=== PATIENT | male | born 1970 | race Caucasian/White ===

== ENCOUNTER 2018-06-13 10:21 | Inpatient (IN) | payer OTHER ==
[2018-06-13 10:58] VITALS: BMI 25.0
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
[2018-06-13] MEDS ORDERED: IBUPROFEN 400 MG TABLET (FP) PO PRN (12:00)
[2018-06-13] MEDS ORDERED: MAGNESIUM HYDROX 2400MG/30ML ORAL SUSPENSION 30 ML CUP PO PRN (12:00)
[2018-06-13] MEDS ORDERED: ACETAMINOPHEN 325 MG TABLET (FP) PO PRN (12:00)
[2018-06-13] MEDS ORDERED: LOPERAMIDE HCL 2 MG CAPSULE PO PRN (12:00)
[2018-06-13] MEDS ORDERED: MAG HYDROX/AL HYDROX/SIMETH 30 ML UNIT-DOSE CUP PO PRN (12:00)
[2018-06-13] MEDS ORDERED: hydrOXYzine PAMOATE 25 MG CAPSULE (FP) PO PRN (12:00)
[2018-06-13] MEDS ORDERED: NICOTINE POLACRILEX 4 MG GUM BUC PRN (12:00)
[2018-06-13] MEDS ORDERED: MAGNESIUM CITRATE 300 ML BOTTLE PO PRN (12:00)
[2018-06-13] MEDS ORDERED: MENTHOL/PHENOL 1 EACH UD MM PRN (12:00)
[2018-06-13] MEDS ORDERED: chlordiazePOXIDE HCL 25 MG CAPSULE PO PRN (12:00)
[2018-06-13] MEDS ORDERED: BUDESONIDE/FORMETEROL FUMARATE 160/4.5 mcg INHALER IH ONE (12:02)
[2018-06-13] MEDS: P-EPHED 60MG/TRIPROLIDI 2.5MG TABLET PO PRN (14:47)
[2018-06-13] MEDS: guaiFENesin/D-METHORPHAN HB 10 ML UNIT-DOSE CUPS PO PRN (14:47)
[2018-06-13] MEDS: NICOTINE 21 MG/24 HOURS TOPICAL PATCH TD SCH (14:48)
[2018-06-13] MEDS: ALBUTEROL SO4 8 GM HFA INHALER IH PRN (14:49)
[2018-06-13] MEDS ORDERED: chlordiazePOXIDE HCL 25 MG CAPSULE PO ONE (15:00)
[2018-06-13] MEDS: chlordiazePOXIDE HCL 25 MG CAPSULE PO SCH ×2 (18:26→22:35)
[2018-06-13] MEDS ORDERED: MELATONIN 5 MG TABLETS PO PRN (22:00)
[2018-06-13] MEDS: THIAMINE HCL 100 MG TABLET (FP) PO SCH (22:35)
[2018-06-14] MEDS: guaiFENesin/D-METHORPHAN HB 10 ML UNIT-DOSE CUPS PO PRN (06:01)
[2018-06-14] MEDS: chlordiazePOXIDE HCL 25 MG CAPSULE PO SCH ×4 (06:01→23:01)
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
[2018-06-14] MEDS: QUEtiapine FUMARATE 200 MG TABLET PO SCH ×3 (10:30→22:37)
--- NOTE | 2018-06-14 10:33 | PN ---
[facility] CIWA - CIWA Score Nausea/Vomitin-Mild Nausea/No Vomiting Muscle Tremors: 3 Anxiety: 3 Agitation: 3 Paroxysmal Sweats: 1-Minimal Palms Moist Orientation: 1-Uncertain about Date Tacttile Disturbances: 0-None Auditory Disturbances: 0-None Visual Disturbances: 0-None Headache: 2-Mild CIWA-Ar Total Score: 14 [facility] Progress Note (SOAP) Subjective: history of asthma coughing provide symbicort bid and z pack tremor sweat anxiety restlessness low energy gi distress Objective: 06/14/18 11:59 Vital Signs Temperature 97.9 F 06/14/18 09:46 Pulse Rate 69 06/14/18 09:46 Respiratory Rate 18 06/14/18 09:46 Blood Pressure 120/72 06/14/18 09:46 O2 Sat by Pulse Oximetry (%) lab pending Assessment: 06/14/18 12:00 withdrawal sx Plan: continue detox
[2018-06-14] MEDS: PRENATAL VITAMINS W/ FOLIC ACID TABLET (FP) PO SCH (10:36)
[2018-06-14] MEDS: NICOTINE 21 MG/24 HOURS TOPICAL PATCH TD SCH (10:37)
[2018-06-14] MEDS: ALBUTEROL SO4 8 GM HFA INHALER IH PRN (10:37)
[2018-06-14] MEDS: P-EPHED 60MG/TRIPROLIDI 2.5MG TABLET PO PRN (10:41)
[2018-06-14] MEDS ORDERED: AZITHROMYCIN 250 MG TABLET PO ONE (10:46)
[2018-06-14] MEDS: BUDESONIDE/FORMETEROL FUMARATE 80/4.5 mcg INHALER IH SCH ×2 (11:30→22:37)
[2018-06-14 13:05] LABS: HEMATOCRIT 38.3 % (35.4-49); HEMOGLOBIN 13.6 GM/dL (11.7-16.9); MCH 34.3 pg (25.7-33.7); MCHC 35.6 g/dl (32.0-35.9); MEAN CELL VOLUME 96.6 fl (80-96); MEAN PLT VOLUME 8.2 fl (7.5-11.1); PLATELET COUNT 388 K/MM3 (134-434); RBC 3.96 M/mm3 (4.00-5.60); RDW 14.1 % (11.9-15.9); WHITE BLOOD COUNT 6.8 K/mm3 (4.0-10.0)
[2018-06-14 13:20] LABS: ALBUMIN 3.2 g/dl (3.4-5.0); ALK PHOS 80 U/L (45-117); ANION GAP 5 MMOL/L (8-16); BILIRUBIN,TOTAL 0.3 mg/dL (0.2-1); BLOOD UREA NITROGEN 14 mg/dL (7-18); CALCIUM 8.5 mg/dL (8.5-10.1); CHLORIDE 107 mmol/L (98-107); CO2 26 mmol/L (21-32); CREATININE 0.7 mg/dL (0.55-1.3); GLUCOSE,RANDOM 84 mg/dL (74-106); POTASSIUM 4.5 mmol/L (3.5-5.1); SGOT/AST 11 U/L (15-37); SGPT/ALT 14 U/L (13-61); SODIUM 139 mmol/L (136-145)
[2018-06-14] MEDS: SODIUM CHLORIDE NASAL SPRAY 44 ML BOTTLE NS SCH ×2 (14:05→22:38)
--- NOTE | 2018-06-14 17:13 | EKG ---
Test Reason : Blood Pressure : / mmHG Vent. Rate : 093 BPM Atrial Rate : 093 BPM P-R Int : 142 ms QRS Dur : 088 ms QT Int : 366 ms P-R-T Axes : 062 030 039 degrees QTc Int : 455 ms NORMAL SINUS RHYTHM NORMAL ECG NO PREVIOUS ECGS AVAILABLE Confirmed by MD LELE, EZEQUIEL ([id number]) on 06/14/2018 5:13:01 PM Referred By: Confirmed By:EZEQUIEL ROYAL MD
[2018-06-14] MEDS: LORATADINE 10 MG TABLET PO SCH (22:37)
[2018-06-14] MEDS: THIAMINE HCL 100 MG TABLET (FP) PO SCH (22:37)
[2018-06-15] MEDS: QUEtiapine FUMARATE 200 MG TABLET PO SCH ×4 (06:18→23:47)
[2018-06-15] MEDS: chlordiazePOXIDE HCL 25 MG CAPSULE PO SCH ×2 (06:18→10:18)
[2018-06-15] MEDS: SODIUM CHLORIDE NASAL SPRAY 44 ML BOTTLE NS SCH ×3 (06:19→22:33)
[2018-06-15] MEDS: BUDESONIDE/FORMETEROL FUMARATE 80/4.5 mcg INHALER IH SCH ×2 (10:18→22:38)
[2018-06-15] MEDS: PRENATAL VITAMINS W/ FOLIC ACID TABLET (FP) PO SCH (10:18)
[2018-06-15] MEDS: AZITHROMYCIN 250 MG TABLET PO SCH (10:18)
[2018-06-15] MEDS: NICOTINE 21 MG/24 HOURS TOPICAL PATCH TD SCH (10:19)
--- NOTE | 2018-06-15 14:34 | PN ---
[facility] CIWA - CIWA Score Nausea/Vomitin-No Nausea/No Vomiting Muscle Tremors: 4-Moderate,w/Arms Extend Anxiety: 0-No Anxiety, at Ease Agitation: 0-Normal Activity Paroxysmal Sweats: No Perspiration Orientation: 2-Disoriented Date<2 days Tacttile Disturbances: 2-Mild Itch/Numbness/Burn Auditory Disturbances: 1-Very Mild Visual Disturbances: 2-Mild Sensitivity Headache: 0-None Present CIWA-Ar Total Score: 11 S Progress Note (SOAP) Subjective: Fatigue, Tremors. Objective: PATIENT A & O X 2 (UNCERTAIN ABOUT CURRENT DAY / DATE). PATIENT OBSERVED AMBULATING ON UNIT. IN NO ACUTE DISTRESS. 06/15/18 14:35 Vital Signs Temperature 98.1 F 06/15/18 14:25 Pulse Rate 120 H 06/15/18 14:25 Respiratory Rate 06/15/18 14:25 Blood Pressure 124/90 06/15/18 14:25 O2 Sat by Pulse Oximetry (%) Laboratory Tests 06/14/18 06/14/18 06/14/18 07:40 07:40 07:40 WBC 6.8 RBC 3.96 L Hgb 13.6 Hct 38.3 MCV 96.6 H MCH 34.3 H MCHC 35.6 RDW 14.1 Plt Count 388 MPV 8.2 Sodium 139 Potassium 4.5 Chloride 107 Carbon Dioxide 26 Anion Gap 5 L BUN 14 Creatinine 0.7 Creat Clearance w eGFR > 60 Random Glucose 84 Calcium 8.5 Total Bilirubin 0.3 AST 11 L ALT 14 Alkaline Phosphatase 80 Total Protein 6.0 L Albumin 3.2 L RPR Titer Nonreactive LABS NOTED. Assessment: 06/15/18 14:35 WITHDRAWAL SYMPTOMS. Plan: CONTINUE DETOX. INCREASE DAILY PO FLUID INTAKE.
[2018-06-15] MEDS: guaiFENesin/D-METHORPHAN HB 10 ML UNIT-DOSE CUPS PO PRN (15:13)
[2018-06-15] MEDS: chlordiazePOXIDE 5 MG CAPSULE PO SCH ×3 (17:23→23:47)
[2018-06-15] MEDS: LORATADINE 10 MG TABLET PO SCH ×2 (22:33→23:46)
[2018-06-15] MEDS: THIAMINE HCL 100 MG TABLET (FP) PO SCH (22:38)
[2018-06-16] MEDS: chlordiazePOXIDE 5 MG CAPSULE PO SCH ×2 (05:45→11:05)
[2018-06-16] MEDS: QUEtiapine FUMARATE 200 MG TABLET PO SCH ×3 (05:45→22:02)
[2018-06-16] MEDS: guaiFENesin/D-METHORPHAN HB 10 ML UNIT-DOSE CUPS PO PRN (05:46)
[2018-06-16] MEDS: SODIUM CHLORIDE NASAL SPRAY 44 ML BOTTLE NS SCH ×3 (06:04→22:03)
[2018-06-16] MEDS: AZITHROMYCIN 250 MG TABLET PO SCH (11:05)
[2018-06-16] MEDS: PRENATAL VITAMINS W/ FOLIC ACID TABLET (FP) PO SCH (11:05)
[2018-06-16] MEDS: NICOTINE 21 MG/24 HOURS TOPICAL PATCH TD SCH (11:06)
[2018-06-16] MEDS: BUDESONIDE/FORMETEROL FUMARATE 80/4.5 mcg INHALER IH SCH ×2 (11:06→22:03)
--- NOTE | 2018-06-16 15:30 | PN ---
[facility] Progress Note (SOAP) Subjective: Fatigue, Tremors. Objective: PATIENT A & O X 3. IN NO ACUTE DISTRESS. 06/16/18 15:31 Vital Signs Temperature 98.6 F 06/16/18 15:26 Pulse Rate 93 H 06/16/18 15:26 Respiratory Rate 18 06/16/18 15:26 Blood Pressure 103/78 06/16/18 15:26 O2 Sat by Pulse Oximetry (%) Laboratory Tests 06/14/18 06/14/18 06/14/18 07:40 07:40 07:40 WBC 6.8 RBC 3.96 L Hgb 13.6 Hct 38.3 MCV 96.6 H MCH 34.3 H MCHC 35.6 RDW 14.1 Plt Count 388 MPV 8.2 Sodium 139 Potassium 4.5 Chloride 107 Carbon Dioxide 26 Anion Gap 5 L BUN 14 Creatinine 0.7 Creat Clearance w eGFR > 60 Random Glucose 84 Calcium 8.5 Total Bilirubin 0.3 AST 11 L ALT 14 Alkaline Phosphatase 80 Total Protein 6.0 L Albumin 3.2 L RPR Titer Nonreactive LABS NOTED. Assessment: 06/16/18 15:32 WITHDRAWAL SYMPTOMS. Plan: CONTINUE DETOX.
[2018-06-16] MEDS: chlordiazePOXIDE HCL 10 MG CAPSULE PO SCH ×2 (17:55→22:02)
[2018-06-16] MEDS: LORATADINE 10 MG TABLET PO SCH (22:02)
[2018-06-16] MEDS: THIAMINE HCL 100 MG TABLET (FP) PO SCH (22:04)
[2018-06-17] MEDS: SODIUM CHLORIDE NASAL SPRAY 44 ML BOTTLE NS SCH (05:32)
[2018-06-17] MEDS: chlordiazePOXIDE HCL 10 MG CAPSULE PO SCH (05:32)
[2018-06-17] MEDS: QUEtiapine FUMARATE 200 MG TABLET PO SCH (05:33)
[2018-06-17 09:30] VITALS: BP 130/67; PULSE 109; TEMP 96.1
--- NOTE | 2018-06-17 09:31 | DS ---
[facility] Detox Discharge Summary Admission Date: 06/13/18 Discharge Date: 06/17/18 - History Present History: Alcohol Dependence - Physical Exam Results Vital Signs: Vital Signs Temperature 96.6 F L 06/17/18 06:40 Pulse Rate 82 06/17/18 06:40 Respiratory Rate 18 06/17/18 06:40 Blood Pressure 116/72 06/17/18 06:40 O2 Sat by Pulse Oximetry (%) - Treatment Hospital Course: Detox Protocol Followed, Detoxed Safely, Responded well, Discharged Condition Good, Rehab Referral Accepted - Medication Discharge Medications: Ambulatory Orders Albuterol Sulfate Inhaler - [Ventolin Hfa Inhaler -] 1 inh PO Q4H PRN 06/13/18 Fluticasone/Vilanterol [Breo Ellipta 200-25 Mcg INH] 1 each IH DAILY 06/13/18 Quetiapine Fumarate [Seroquel -] 300 mg PO HS 06/13/18 - Diagnosis (1) Alcohol dependence with uncomplicated withdrawal Current Visit: Yes Status: Chronic (2) Heroin use Current Visit: Yes Status: Acute (3) Unspecified mood [affective] disorder Current Visit: Yes Status: Acute (4) Alcohol related seizure Current Visit: Yes Status: Chronic (5) COPD (chronic obstructive pulmonary disease) Current Visit: Yes Status: Chronic Qualifiers: COPD type: unspecified COPD Qualified Code(s): J44.9 - Chronic obstructive pulmonary disease, unspecified (6) Nicotine dependence Current Visit: Yes Status: Chronic Qualifiers: Nicotine product type: cigarettes Substance use status: uncomplicated Qualified Code(s): F17.210 - Nicotine dependence, cigarettes, uncomplicated - AMA Did Patient Leave Against Medical Advice: No ([facility])
== END 2018-06-17 09:50 | disposition home or self-care (01) | DRG 897 ==
LOC: YASAS 10:21 → Y6N 13:20
PROC: HZ2ZZZZ Detoxification Services for Substance Abuse Treatment (ICD-10-PCS; principal; 2018-06-13)
DX: F10.230 Alcohol dependence with withdrawal, uncomplicated (principal); F11.10 Opioid abuse, uncomplicated; F17.210 Nicotine dependence, cigarettes, uncomplicated; F39 Unspecified mood [affective] disorder; J44.9 Chronic obstructive pulmonary disease, unspecified; Z86.69 Personal history of other diseases of the nervous system and sense organs; Z90.81 Acquired absence of spleen; Z90.79 Acquired absence of other genital organ(s); Z88.0 Allergy status to penicillin; Z88.8 Allergy status to other drugs, medicaments and biological substances
CPT/HCPCS: 36415; 80053; 85027; 86593; 93005; 93010

== ENCOUNTER 2018-08-06 14:46 | Inpatient (IN) | payer OTHER ==
[2018-08-06 16:50] VITALS: BMI 25.1
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
[2018-08-06] MEDS ORDERED: MAGNESIUM HYDROX 2400MG/30ML ORAL SUSPENSION 30 ML CUP PO PRN (18:46)
[2018-08-06] MEDS ORDERED: MAGNESIUM CITRATE 300 ML BOTTLE PO PRN (18:46)
[2018-08-06] MEDS ORDERED: P-EPHED 60MG/TRIPROLIDI 2.5MG TABLET PO PRN (18:46)
[2018-08-06] MEDS ORDERED: MAG HYDROX/AL HYDROX/SIMETH 30 ML UNIT-DOSE CUP PO PRN (18:46)
[2018-08-06] MEDS ORDERED: guaiFENesin/D-METHORPHAN HB 10 ML UNIT-DOSE CUPS PO PRN (18:46)
[2018-08-06] MEDS ORDERED: MENTHOL/PHENOL 1 EACH UD MM PRN (18:46)
[2018-08-06] MEDS ORDERED: chlordiazePOXIDE HCL 25 MG CAPSULE PO PRN (18:46)
[2018-08-06] MEDS ORDERED: ACETAMINOPHEN 325 MG TABLET (FP) PO PRN (18:46)
[2018-08-06] MEDS ORDERED: IBUPROFEN 400 MG TABLET (FP) PO PRN (18:46)
[2018-08-06] MEDS ORDERED: ALBUTEROL SO4 0.083% IH SOL 2.5 MG/3 ML VIAL.NEB. NEB PRN (18:47)
[2018-08-06] MEDS ORDERED: QUEtiapine FUMARATE 100 MG TABLET (FP) PO ONE (21:00)
[2018-08-06] MEDS ORDERED: MELATONIN 5 MG TABLETS PO PRN (22:00)
[2018-08-06] MEDS ORDERED: THIAMINE HCL 100 MG TABLET (FP) PO SCH (22:00)
[2018-08-06] MEDS: chlordiazePOXIDE HCL 25 MG CAPSULE PO SCH (23:21)
[2018-08-07] MEDS: chlordiazePOXIDE HCL 25 MG CAPSULE PO SCH ×3 (06:16→17:25)
[2018-08-07] MEDS ORDERED: PRENATAL VITAMINS W/ FOLIC ACID TABLET (FP) PO SCH (10:00)
[2018-08-07] MEDS ORDERED: PATIENT'S OWN MEDICATION (NON-FORMULARY) (Fluticasone/Vilanterol [Breo Ellipta 200-25 Mcg IH SCH (10:00)
[2018-08-07] MEDS ORDERED: NICOTINE 7 MG/24 HOURS TOPICAL PATCH TD SCH (10:00)
[2018-08-07 10:48] LABS: HEMATOCRIT 39.1 % (35.4-49); HEMOGLOBIN 13.6 GM/dL (11.7-16.9); MCH 33.5 pg (25.7-33.7); MCHC 34.6 g/dl (32.0-35.9); MEAN CELL VOLUME 96.8 fl (80-96); MEAN PLT VOLUME 8.1 fl (7.5-11.1); PLATELET COUNT 381 K/MM3 (134-434); RBC 4.05 M/mm3 (4.00-5.60); RDW 14.1 % (11.9-15.9); WHITE BLOOD COUNT 5.1 K/mm3 (4.0-10.0)
[2018-08-07 11:02] LABS: ALBUMIN 3.4 g/dl (3.4-5.0); ALK PHOS 86 U/L (45-117); ANION GAP 7 MMOL/L (8-16); BILIRUBIN,TOTAL 0.8 mg/dL (0.2-1); BLOOD UREA NITROGEN 22 mg/dL (7-18); CALCIUM 8.9 mg/dL (8.5-10.1); CHLORIDE 107 mmol/L (98-107); CO2 26 mmol/L (21-32); CREATININE 0.8 mg/dL (0.55-1.3); GLUCOSE,RANDOM 85 mg/dL (74-106); POTASSIUM 4.4 mmol/L (3.5-5.1); SGOT/AST 14 U/L (15-37); SGPT/ALT 14 U/L (13-61); SODIUM 141 mmol/L (136-145); TOT PROT 6.2 g/dl (6.4-8.2)
[2018-08-07] MEDS ORDERED: ALBUTEROL SO4 8 GM HFA INHALER IH PRN (11:07)
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
--- NOTE | 2018-08-07 17:08 | PN ---
S CIWA - CIWA Score Nausea/Vomitin-No Nausea/No Vomiting Muscle Tremors: 2 Anxiety: 3 Agitation: 0-Normal Activity Paroxysmal Sweats: 2 Orientation: 0-Oriented Tacttile Disturbances: 0-None Auditory Disturbances: 0-None Visual Disturbances: 0-None Headache: 0-None Present CIWA-Ar Total Score: 7 [facility] Progress Note (SOAP) Subjective: Anxious, Sweating, Fatigue. Objective: PATIENT A & O X 3. IN NO ACUTE DISTRESS. 08/07/18 17:07 Vital Signs Temperature 96.1 F L 08/07/18 09:25 Pulse Rate 91 H 08/07/18 09:25 Respiratory Rate 18 08/07/18 09:25 Blood Pressure 115/74 08/07/18 09:25 O2 Sat by Pulse Oximetry (%) Laboratory Tests 08/07/18 08/07/18 07:00 07:00 WBC 5.1 RBC 4.05 Hgb 13.6 Hct 39.1 MCV 96.8 H MCH 33.5 MCHC 34.6 RDW 14.1 Plt Count 381 MPV 8.1 Sodium 141 Potassium 4.4 Chloride 107 Carbon Dioxide 26 Anion Gap 7 L BUN 22 H Creatinine 0.8 Creat Clearance w eGFR > 60 Random Glucose 85 Calcium 8.9 Total Bilirubin 0.8 AST 14 L ALT 14 Alkaline Phosphatase 86 Total Protein 6.2 L Albumin 3.4 LABS NOTED. RPR RESULT PENDING. 08/07/18 17:07 Assessment: 08/07/18 17:08 WITHDRAWAL SYMPTOMS. Plan: CONTINUE DETOX. INCREASE DAILY PO FLUID INTAKE.
[2018-08-07 17:48] VITALS: BP 119/82; PULSE 78; TEMP 97.4
[2018-08-07] MEDS ORDERED: QUEtiapine FUMARATE 200 MG TABLET PO SCH (22:00)
[2018-08-07] MEDS ORDERED: chlordiazePOXIDE HCL 25 MG CAPSULE PO SCH (23:00)
[2018-08-08] MEDS ORDERED: chlordiazePOXIDE 5 MG CAPSULE PO SCH (23:00)
[2018-08-09] MEDS ORDERED: chlordiazePOXIDE HCL 10 MG CAPSULE PO SCH (23:00)
== END 2018-08-07 18:20 | disposition left against medical advice (07) | DRG 894 ==
LOC: YASAS 14:46 → Y3N 18:59
PROVIDERS: ADMIT Surgery; ATTEND Surgery
PROC: HZ2ZZZZ Detoxification Services for Substance Abuse Treatment (ICD-10-PCS; principal; 2018-08-06)
DX: F10.230 Alcohol dependence with withdrawal, uncomplicated (principal); F14.10 Cocaine abuse, uncomplicated; F17.210 Nicotine dependence, cigarettes, uncomplicated; F19.24 Other psychoactive substance dependence with psychoactive substance-induced mood disorder; F43.10 Post-traumatic stress disorder, unspecified; G47.00 Insomnia, unspecified; Z86.69 Personal history of other diseases of the nervous system and sense organs
CPT/HCPCS: 36415; 80053; 85027; 86593

== ENCOUNTER 2019-03-15 23:44 | Inpatient (IN) | payer OTHER ==
[2019-03-16 02:12] VITALS: BMI 32.4
--- NOTE | 2019-03-16 03:34 | PN ---
[facility] CIWA - CIWA Score Nausea/Vomitin-Int. Nausea w/Dry Heave Muscle Tremors: 3 Anxiety: 3 Agitation: 1-Slight > Activity Paroxysmal Sweats: 2 Orientation: 0-Oriented Tacttile Disturbances: 1-Very Mild Itch/Numbness Auditory Disturbances: 0-None Visual Disturbances: 0-None Headache: 0-None Present CIWA-Ar Total Score: 14 [facility] Progress Note (SOAP) Subjective: Alcohol dependence in withdrawal Cocaine dependence Nicotine dependence allergic Rhinitis COPD GERD Objective: 03/16/19 03:34 Alert and oriented x 3 Tremors Sweating Anxiety shakes 03/16/19 03:36 Vital Signs Temperature 97.7 F 03/16/19 02:11 Pulse Rate 82 03/16/19 02:11 Respiratory Rate 18 03/16/19 02:11 Blood Pressure 130/91 03/16/19 02:11 O2 Sat by Pulse Oximetry (%) Assessment: 03/16/19 03:36 Alcohol withdrawal symptoms Plan: Admit to detox Librium regimen H and P including medication confirmation to be done in the morning See Admission orders
[2019-03-16] MEDS ORDERED: ACETAMINOPHEN 325 MG TABLET (FP) PO PRN ×2 (03:42)
[2019-03-16] MEDS ORDERED: MENTHOL/PHENOL 1 EACH UD MM PRN (03:42)
[2019-03-16] MEDS ORDERED: MAGNESIUM HYDROX 2400MG/30ML ORAL SUSPENSION 30 ML CUP PO PRN (03:42)
[2019-03-16] MEDS ORDERED: METHOCARBAMOL 500 MG TABLET PO PRN (03:42)
[2019-03-16] MEDS ORDERED: BISMUTH SUBSALICYLATE 524 MG/30 ML UD PO PRN (03:42)
[2019-03-16] MEDS ORDERED: MAGNESIUM CITRATE 300 ML BOTTLE PO PRN (03:42)
[2019-03-16] MEDS ORDERED: chlordiazePOXIDE HCL 10 MG CAPSULE PO PRN (03:42)
[2019-03-16] MEDS ORDERED: MAG HYDROX/AL HYDROX/SIMETH 30 ML UNIT-DOSE CUP PO PRN (03:49)
[2019-03-16] MEDS: chlordiazePOXIDE HCL 25 MG CAPSULE PO SCH ×3 (04:46→21:22)
[2019-03-16 10:21] LABS: MCH 32.2 pg (25.7-33.7); MCHC 34.3 g/dl (32.0-35.9); MEAN CELL VOLUME 93.9 fl (80-96); MEAN PLT VOLUME 9.2 fl (7.5-11.1); PLATELET COUNT 334 K/MM3 (134-434); RBC 3.73 M/mm3 (4.00-5.60); RDW 14.6 % (11.9-15.9); WHITE BLOOD COUNT 9.4 K/mm3 (4.0-10.0)
[2019-03-16] MEDS: PRENATAL VITAMINS W/ FOLIC ACID TABLET (FP) PO SCH (11:00)
[2019-03-16] MEDS: NICOTINE 21 MG/24 HOURS TOPICAL PATCH TD SCH (11:00)
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
[2019-03-16] MEDS ORDERED: PNEUMOCOCCAL 23 VACCINE 0.5 ML VIAL IM ONE (12:00)
[2019-03-16] MEDS ORDERED: PNEUMOC 13-VAL CONJ-DIP CRM/PF 0.5 ML DISP.SYRIN IM ONE (12:00)
[2019-03-16] MEDS: GABAPENTIN 100 MG CAPSULE (FP) PO SCH ×2 (14:32→21:22)
--- NOTE | 2019-03-16 15:28 | PN ---
[facility] Progress Note Note: Psychiatry Attending's note : Attempt made to conduct psychiatric evaluation. As requested. Patient is found sleeping comfortably. No evidence of distress. Examination deferred until AM.
[2019-03-16 16:55] LABS: ALBUMIN 3.5 g/dl (3.4-5.0); BILIRUBIN,TOTAL 0.5 mg/dL (0.2-1); BLOOD UREA NITROGEN 20.2 mg/dL (7-18); CALCIUM 8.8 mg/dL (8.5-10.1); CREATININE 0.8 mg/dL (0.55-1.3); POTASSIUM 4.6 mmol/L (3.5-5.1); TOT PROT 6.6 g/dl (6.4-8.2)
[2019-03-16] MEDS: hydrOXYzine PAMOATE 25 MG CAPSULE (FP) PO PRN (21:22)
[2019-03-16] MEDS: MELATONIN 5 MG TABLETS PO PRN (21:23)
[2019-03-16] MEDS: THIAMINE HCL 100 MG TABLET (FP) PO SCH (21:23)
[2019-03-16] MEDS: BUDESONIDE/FORMETEROL FUMARATE 80/4.5 mcg INHALER IH SCH (22:37)
[2019-03-16] MEDS: FLUTICASONE PROP 0.05% 16 GM NASAL SPRAY NS SCH (22:38)
[2019-03-17] MEDS: chlordiazePOXIDE 5 MG CAPSULE PO SCH ×3 (06:31→22:05)
[2019-03-17] MEDS: GABAPENTIN 100 MG CAPSULE (FP) PO SCH ×3 (07:32→22:03)
[2019-03-17] MEDS: BUDESONIDE/FORMETEROL FUMARATE 80/4.5 mcg INHALER IH SCH ×2 (10:29→22:06)
[2019-03-17] MEDS: FLUTICASONE PROP 0.05% 16 GM NASAL SPRAY NS SCH ×2 (10:30→22:05)
[2019-03-17] MEDS: NICOTINE 21 MG/24 HOURS TOPICAL PATCH TD SCH (10:30)
[2019-03-17] MEDS: PRENATAL VITAMINS W/ FOLIC ACID TABLET (FP) PO SCH (10:31)
[2019-03-17] MEDS: PANTOPRAZOLE 40 MG TABLET (FP) PO SCH (10:31)
[2019-03-17] MEDS: hydrOXYzine PAMOATE 25 MG CAPSULE (FP) PO PRN ×2 (10:32→22:05)
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
--- NOTE | 2019-03-17 12:28 | PN ---
[facility] CIWA - CIWA Score Nausea/Vomitin-No Nausea/No Vomiting Muscle Tremors: 3 Anxiety: 3 Agitation: 3 Paroxysmal Sweats: 3 Orientation: 0-Oriented Tacttile Disturbances: 0-None Auditory Disturbances: 0-None Visual Disturbances: 0-None Headache: 0-None Present CIWA-Ar Total Score: 12 S Progress Note (SOAP) Subjective: diarrhea sweats shakes interrupted sleep body aches Objective: 03/17/19 12:17 Vital Signs Temperature 97.9 F 03/17/19 10:16 Pulse Rate 74 03/17/19 10:16 Respiratory Rate 18 03/17/19 10:16 Blood Pressure 115/59 L 03/17/19 10:16 O2 Sat by Pulse Oximetry (%) Laboratory Tests 03/16/19 03/16/19 03/16/19 08:00 12:46 13:15 WBC 9.4 RBC 3.73 L Hgb 12.0 Hct 35.0 L MCV 93.9 MCH 32.2 MCHC 34.3 RDW 14.6 Plt Count 334 MPV 9.2 Sodium 141 Potassium 4.6 Chloride 108 H Carbon Dioxide 27 Anion Gap 6 L BUN 20.2 H Creatinine 0.8 Est GFR (CKD-EPI)AfAm 122.43 Est GFR (CKD-EPI)NonAf 105.63 Random Glucose 143 H Calcium 8.8 Total Bilirubin 0.5 AST 36 ALT 30 Alkaline Phosphatase 89 Total Protein 6.6 Albumin 3.5 RPR Titer HIV 1&2 Antibody Screen Negative HIV P24 Antigen Negative 03/16/19 13:15 WBC RBC Hgb Hct MCV MCH MCHC RDW Plt Count MPV Sodium Potassium Chloride Carbon Dioxide Anion Gap BUN Creatinine Est GFR (CKD-EPI)AfAm Est GFR (CKD-EPI)NonAf Random Glucose Calcium Total Bilirubin AST ALT Alkaline Phosphatase Total Protein Albumin RPR Titer Nonreactive HIV 1&2 Antibody Screen HIV P24 Antigen labs noted repeat BUN encourage increase water intake aaox3 ambulating no acute distress Assessment: 03/17/19 12:28 withdrawals Plan: continue detox increase fluids repeat BUN
[2019-03-17] MEDS ORDERED: PNEUMOC 13-VAL CONJ-DIP CRM/PF 0.5 ML DISP.SYRIN IM ONE (12:57)
[2019-03-17] MEDS ORDERED: PNEUMOCOCCAL 23 VACCINE 0.5 ML VIAL IM ONE (14:15)
[2019-03-17] MEDS: THIAMINE HCL 100 MG TABLET (FP) PO SCH (22:05)
[2019-03-18] MEDS ORDERED: chlordiazePOXIDE HCL 10 MG CAPSULE PO PRN
[2019-03-18] MEDS: chlordiazePOXIDE HCL 10 MG CAPSULE PO SCH ×3 (06:17→22:09)
[2019-03-18] MEDS: GABAPENTIN 100 MG CAPSULE (FP) PO SCH ×3 (06:17→22:09)
[2019-03-18] MEDS: hydrOXYzine PAMOATE 25 MG CAPSULE (FP) PO PRN ×2 (06:18→22:12)
--- NOTE | 2019-03-18 10:12 | PN ---
[facility] CIWA - CIWA Score Nausea/Vomitin-No Nausea/No Vomiting Muscle Tremors: 3 Anxiety: 2 Agitation: 2 Paroxysmal Sweats: 2 Orientation: 0-Oriented Tacttile Disturbances: 0-None Auditory Disturbances: 0-None Visual Disturbances: 0-None Headache: 0-None Present CIWA-Ar Total Score: 9 S Progress Note (SOAP) Subjective: I have dandruff sweats body aches Objective: 03/18/19 10:11 Vital Signs Temperature 96.1 F L 03/18/19 09:41 Pulse Rate 71 03/18/19 09:41 Respiratory Rate 18 03/18/19 09:41 Blood Pressure 106/65 03/18/19 09:41 O2 Sat by Pulse Oximetry (%) Laboratory Tests 03/16/19 03/16/19 03/16/19 08:00 12:46 13:15 WBC 9.4 RBC 3.73 L Hgb 12.0 Hct 35.0 L MCV 93.9 MCH 32.2 MCHC 34.3 RDW 14.6 Plt Count 334 MPV 9.2 Sodium 141 Potassium 4.6 Chloride 108 H Carbon Dioxide 27 Anion Gap 6 L BUN 20.2 H Creatinine 0.8 Est GFR (CKD-EPI)AfAm 122.43 Est GFR (CKD-EPI)NonAf 105.63 Random Glucose 143 H Calcium 8.8 Total Bilirubin 0.5 AST 36 ALT 30 Alkaline Phosphatase 89 Total Protein 6.6 Albumin 3.5 RPR Titer HIV 1&2 Antibody Screen Negative HIV P24 Antigen Negative 03/16/19 13:15 WBC RBC Hgb Hct MCV MCH MCHC RDW Plt Count MPV Sodium Potassium Chloride Carbon Dioxide Anion Gap BUN Creatinine Est GFR (CKD-EPI)AfAm Est GFR (CKD-EPI)NonAf Random Glucose Calcium Total Bilirubin AST ALT Alkaline Phosphatase Total Protein Albumin RPR Titer Nonreactive HIV 1&2 Antibody Screen HIV P24 Antigen pt refused to have his labs retaken encouraged to hydrate aaox3 ambulating no acute distress Assessment: 03/18/19 10:11 withdrawals Plan: continue detox selenium lotion increase fluids d/c in am
[2019-03-18] MEDS: FLUTICASONE PROP 0.05% 16 GM NASAL SPRAY NS SCH ×2 (10:33→22:10)
[2019-03-18] MEDS: PANTOPRAZOLE 40 MG TABLET (FP) PO SCH (10:33)
[2019-03-18] MEDS: BUDESONIDE/FORMETEROL FUMARATE 80/4.5 mcg INHALER IH SCH ×2 (10:33→22:10)
[2019-03-18] MEDS: PRENATAL VITAMINS W/ FOLIC ACID TABLET (FP) PO SCH (10:33)
[2019-03-18] MEDS: SELENIUM SULFIDE 2.5% LOTION 4 OZ. TP SCH (10:33)
[2019-03-18] MEDS: NICOTINE 21 MG/24 HOURS TOPICAL PATCH TD SCH (10:33)
[2019-03-18] MEDS: THIAMINE HCL 100 MG TABLET (FP) PO SCH (22:09)
[2019-03-19] MEDS ORDERED: chlordiazePOXIDE HCL 10 MG CAPSULE PO ONE (05:00)
[2019-03-19] MEDS: GABAPENTIN 100 MG CAPSULE (FP) PO SCH ×3 (06:23→21:06)
--- NOTE | 2019-03-19 08:49 | DS ---
[facility] Detox Discharge Summary Admission Date: 03/16/19 Discharge Date: 03/19/19 - History Present History: Alcohol Dependence - Physical Exam Results Vital Signs: Vital Signs Temperature 97.7 F 03/18/19 21:05 Pulse Rate 82 03/19/19 00:30 Respiratory Rate 18 03/19/19 03:30 Blood Pressure 122/76 03/18/19 21:05 O2 Sat by Pulse Oximetry (%) Pertinent Admission Physical Exam Findings: pt arrived in withdrawals Laboratory Tests 03/16/19 03/16/19 03/16/19 08:00 12:46 13:15 WBC 9.4 RBC 3.73 L Hgb 12.0 Hct 35.0 L MCV 93.9 MCH 32.2 MCHC 34.3 RDW 14.6 Plt Count 334 MPV 9.2 Sodium 141 Potassium 4.6 Chloride 108 H Carbon Dioxide 27 Anion Gap 6 L BUN 20.2 H Creatinine 0.8 Est GFR (CKD-EPI)AfAm 122.43 Est GFR (CKD-EPI)NonAf 105.63 Random Glucose 143 H Calcium 8.8 Total Bilirubin 0.5 AST 36 ALT 30 Alkaline Phosphatase 89 Total Protein 6.6 Albumin 3.5 RPR Titer HIV 1&2 Antibody Screen Negative HIV P24 Antigen Negative 03/16/19 13:15 WBC RBC Hgb Hct MCV MCH MCHC RDW Plt Count MPV Sodium Potassium Chloride Carbon Dioxide Anion Gap BUN Creatinine Est GFR (CKD-EPI)AfAm Est GFR (CKD-EPI)NonAf Random Glucose Calcium Total Bilirubin AST ALT Alkaline Phosphatase Total Protein Albumin RPR Titer Nonreactive HIV 1&2 Antibody Screen HIV P24 Antigen pt is aaox3 ambulating no acute distress - Treatment Hospital Course: Detox Protocol Followed, Detoxed Safely, Responded well, Discharged Condition Good, Rehab Referral Accepted Patient has Accepted a Rehab Referral to: pt referred to [facility] rehab - Medication Discharge Medications: Ambulatory Orders Budesonide/Formeterol Fumarate [SYMBICORT 80/4.5mcg -] 1 inh PO BID 03/16/19 Divalproex Sodium [Depakote ER] 500 mg PO DAILY 03/16/19 Divalproex Sodium [Divalproex Sodium ER] 1,000 mg PO HS 03/16/19 Fluticasone Prop 0.05% Nasal [Flonase -] 1 - 2 spray NS BID 03/16/19 Folic Acid - 1 mg PO DAILY 03/16/19 Gabapentin [Neurontin -] 300 mg PO Q8H 03/16/19 Rodessa Carbonate [Eskalith -] 600 mg PO HS 03/16/19 Pantoprazole Sodium [Protonix -] 40 mg PO DAILY 03/16/19 Paroxetine HCl [Paxil -] 20 mg PO DAILY 03/16/19 traZODone HCL [Trazodone HCl] 100 mg PO HS PRN 03/16/19 - Diagnosis (1) Alcohol dependence with uncomplicated withdrawal Current Visit: Yes Status: Chronic (2) Alcohol related seizure Current Visit: No Status: Suspected (3) COPD (chronic obstructive pulmonary disease) Current Visit: Yes Status: Chronic Qualifiers: COPD type: unspecified COPD Qualified Code(s): J44.9 - Chronic obstructive pulmonary disease, unspecified (4) History of posttraumatic stress disorder (PTSD) Current Visit: Yes Status: Chronic (5) Nicotine dependence Current Visit: Yes Status: Chronic Qualifiers: Nicotine product type: cigarettes Substance use status: uncomplicated Qualified Code(s): F17.210 - Nicotine dependence, cigarettes, uncomplicated - AMA Did Patient Leave Against Medical Advice: No
[2019-03-19] MEDS: PRENATAL VITAMINS W/ FOLIC ACID TABLET (FP) PO SCH (10:10)
[2019-03-19] MEDS: PANTOPRAZOLE 40 MG TABLET (FP) PO SCH (10:11)
[2019-03-19] MEDS: SELENIUM SULFIDE 2.5% LOTION 4 OZ. TP SCH (10:11)
[2019-03-19] MEDS: BUDESONIDE/FORMETEROL FUMARATE 80/4.5 mcg INHALER IH SCH ×2 (10:12→21:13)
[2019-03-19] MEDS: hydrOXYzine PAMOATE 25 MG CAPSULE (FP) PO PRN ×2 (10:13→21:07)
[2019-03-19] MEDS: NICOTINE 21 MG/24 HOURS TOPICAL PATCH TD SCH (10:14)
[2019-03-19] MEDS: FLUTICASONE PROP 0.05% 16 GM NASAL SPRAY NS SCH ×2 (10:15→21:08)
[2019-03-19] MEDS: THIAMINE HCL 100 MG TABLET (FP) PO SCH (21:06)
[2019-03-19] MEDS: MELATONIN 5 MG TABLETS PO PRN (21:07)
[2019-03-19] MEDS: IBUPROFEN 400 MG TABLET (FP) PO PRN (21:09)
[2019-03-20] MEDS: GABAPENTIN 100 MG CAPSULE (FP) PO SCH ×2 (07:05→15:06)
[2019-03-20] MEDS: PANTOPRAZOLE 40 MG TABLET (FP) PO SCH (10:01)
[2019-03-20] MEDS: PRENATAL VITAMINS W/ FOLIC ACID TABLET (FP) PO SCH (10:01)
[2019-03-20] MEDS: NICOTINE 21 MG/24 HOURS TOPICAL PATCH TD SCH (10:01)
[2019-03-20] MEDS: FLUTICASONE PROP 0.05% 16 GM NASAL SPRAY NS SCH ×2 (10:02→21:24)
[2019-03-20] MEDS: BUDESONIDE/FORMETEROL FUMARATE 80/4.5 mcg INHALER IH SCH ×2 (10:06→21:23)
[2019-03-20] MEDS: IBUPROFEN 400 MG TABLET (FP) PO PRN ×3 (10:07→21:29)
[2019-03-20] MEDS: SELENIUM SULFIDE 2.5% LOTION 4 OZ. TP SCH (10:11)
--- NOTE | 2019-03-20 15:09 | PN ---
[facility] Progress Note Note: Patient is referred for localized redness to the right eye. As per patient, redness started yesterday in the inner canthus and it is spreading. On exam, he is noted with blood shot eye starting from the inner canthus covering an area about 0.5 cm. He reports itchiness, he denies pain, headache or photophobia. Vital Signs Temperature 98.8 F 03/19/19 19:38 Pulse Rate 79 03/20/19 15:21 Respiratory Rate 18 03/20/19 15:21 Blood Pressure 113/93 03/20/19 15:21 O2 Sat by Pulse Oximetry (%) A/P Bloodshot eye- Artificial tears TID as needed Monitoring ongoing
[2019-03-20] MEDS ORDERED: traZODone HCL 100 MG TABLET (FP) PO PRN (16:36)
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
[2019-03-20] MEDS: hydrOXYzine PAMOATE 25 MG CAPSULE (FP) PO PRN (18:26)
[2019-03-20] MEDS: THIAMINE HCL 100 MG TABLET (FP) PO SCH (21:24)
[2019-03-20] MEDS: QUEtiapine FUMARATE 100 MG TABLET (FP) PO SCH (21:24)
[2019-03-20] MEDS: GABAPENTIN 300 MG CAPSULE (FP) PO SCH (21:24)
[2019-03-20] MEDS: DIVALPROEX SODIUM 500 MG TABLET E.C. PO SCH (21:24)
[2019-03-20] MEDS ORDERED: DIVALPROEX SODIUM 500 MG TABLET E.C. PO SCH (22:00)
[2019-03-20] MEDS ORDERED: QUEtiapine FUMARATE 200 MG TABLET PO SCH (22:00)
[2019-03-21] MEDS: GABAPENTIN 300 MG CAPSULE (FP) PO SCH ×3 (06:57→21:07)
[2019-03-21] MEDS: PANTOPRAZOLE 40 MG TABLET (FP) PO SCH (09:32)
[2019-03-21] MEDS: PRENATAL VITAMINS W/ FOLIC ACID TABLET (FP) PO SCH (09:32)
[2019-03-21] MEDS: DIVALPROEX SODIUM 500 MG TABLET E.C. PO SCH ×2 (09:32→21:44)
[2019-03-21] MEDS: FLUTICASONE PROP 0.05% 16 GM NASAL SPRAY NS SCH ×2 (09:32→21:45)
[2019-03-21] MEDS: hydrOXYzine PAMOATE 25 MG CAPSULE (FP) PO PRN ×2 (09:33→21:05)
[2019-03-21] MEDS: NICOTINE 21 MG/24 HOURS TOPICAL PATCH TD SCH (09:33)
[2019-03-21] MEDS: SELENIUM SULFIDE 2.5% LOTION 4 OZ. TP SCH (09:33)
[2019-03-21] MEDS: BUDESONIDE/FORMETEROL FUMARATE 80/4.5 mcg INHALER IH SCH ×2 (11:03→21:46)
[2019-03-21] MEDS: PARoxetine HCL 20 MG TABLET PO SCH (12:35)
[2019-03-21] MEDS: IBUPROFEN 400 MG TABLET (FP) PO PRN (21:05)
[2019-03-21] MEDS: ARTIFICIAL TEARS (POLYVINYL ALCOHOL) OPTH DROPS OD PRN ×2 (21:06→21:44)
[2019-03-21] MEDS: QUEtiapine FUMARATE 100 MG TABLET (FP) PO SCH (21:07)
[2019-03-21] MEDS: THIAMINE HCL 100 MG TABLET (FP) PO SCH (21:45)
[2019-03-22] MEDS: GABAPENTIN 300 MG CAPSULE (FP) PO SCH ×3 (07:39→20:59)
[2019-03-22] MEDS: NICOTINE 21 MG/24 HOURS TOPICAL PATCH TD SCH (10:25)
[2019-03-22] MEDS: FLUTICASONE PROP 0.05% 16 GM NASAL SPRAY NS SCH ×2 (10:25→21:00)
[2019-03-22] MEDS: DIVALPROEX SODIUM 500 MG TABLET E.C. PO SCH (10:25)
[2019-03-22] MEDS: PANTOPRAZOLE 40 MG TABLET (FP) PO SCH (10:26)
[2019-03-22] MEDS: SELENIUM SULFIDE 2.5% LOTION 4 OZ. TP SCH (10:26)
[2019-03-22] MEDS: PARoxetine HCL 20 MG TABLET PO SCH (10:26)
[2019-03-22] MEDS: PRENATAL VITAMINS W/ FOLIC ACID TABLET (FP) PO SCH (10:26)
[2019-03-22] MEDS: BUDESONIDE/FORMETEROL FUMARATE 80/4.5 mcg INHALER IH SCH ×2 (10:26→21:00)
--- NOTE | 2019-03-22 17:12 | PN ---
Psychiatric Progress Note Vital Signs: Vital Signs Period Temp Pulse Resp BP Sys/Prince Pulse Ox Last 24 Hr 16-18 Date of Session: 03/22/19 Chief Complaint:: " I need my trazodone. I still can't sleep at night." HPI: Revisit for assessment of mental status + titration of medications. Case of a 48 y/o male, currently in rehabilitation addressing alcohol use disorder co-morbid with bipolar mood disorder. Clearly improving in spite of complaint of insomnia. ROS: Unremarkable. Patient is ambulatory. Steady gait. Sociable and cooperative. Intact cognition. Current Medications: Active Medications Generic Name Dose Route Start Last Admin Trade Name Freq PRN Reason Stop Dose Admin Acetaminophen 650 mg 03/16/19 03:42 Tylenol - PO Q6H PRN PAIN LEVEL 4 - 6 Acetaminophen 650 mg 03/16/19 03:42 Tylenol - PO Q6H PRN FEVER Al Hydroxide/Mg Hydroxide 30 ml 03/16/19 03:49 Mylanta Oral Suspension - PO Q6H PRN DYSPEPSIA Artificial Tears 1 drop 03/20/19 14:59 03/21/19 21:44 Artificial Tears OD 1 applic Q8H PRN Administration DRY EYES Bismuth Subsalicylate 524 mg 03/16/19 03:42 Pepto-Bismol - PO Q1H PRN DIARRHEA Budesonide/Formoterol Fumarate 1 puff 03/16/19 22:00 03/22/19 10:26 Symbicort 80/4.5mcg - IH Not Given BID JANEE Divalproex Sodium 750 mg 03/22/19 22:00 Depakote - PO BID JANEE Fluticasone Propionate 2 spray 03/16/19 22:00 03/22/19 10:25 Flonase - NS Not Given BID JANEE Gabapentin 300 mg 03/20/19 22:00 03/22/19 14:03 Neurontin - PO 300 mg TID JANEE Administration Ibuprofen 400 mg 03/16/19 03:49 03/21/19 21:05 Motrin - PO 400 mg Q6H PRN Administration PAIN LEVEL 1 - 3 Magnesium Citrate 300 ml 03/16/19 03:42 Citroma - PO Q48H PRN CONSTIPATION Magnesium Hydroxide 30 ml 03/16/19 03:42 Milk Of Magnesia - PO PRN PRN CONSTIPATION Melatonin 5 mg 03/16/19 03:42 10/11/19 21:07 Melatonin PO 5 mg HS PRN Administration INSOMNIA Nicotine 21 mg 03/16/19 10:00 03/22/19 10:25 Nicoderm Patch - TD Not Given DAILY JANEE Pantoprazole Sodium 40 mg 03/17/19 10:00 03/22/19 10:26 Protonix - PO Not Given DAILY JANEE Paroxetine HCl 20 mg 03/21/19 10:00 03/22/19 10:26 Paxil - PO Not Given DAILY JANEE Multivit/Folic Acid/Iron 1 tab 03/16/19 10:00 03/22/19 10:26 Vitamins (Sjr) - PO Not Given DAILY JANEE Quetiapine Fumarate 200 mg 03/22/19 22:00 Seroquel - PO HS JANEE Selenium Sulfide 1 applic 03/18/19 10:15 03/22/19 10:26 Selsun 2.5% Lotion - TP 03/25/19 10:10 Not Given DAILY JANEE Thiamine HCl 100 mg 03/16/19 22:00 03/21/19 21:45 Vitamin B1 - PO 100 mg HS JANEE Administration Trazodone HCl 100 mg 03/22/19 22:00 Desyrel - PO HS JANEE Medication(s) Change(s): Medications addressed. Seroquel is raised to 200 mg po hs + depakote 750 mg po bid. Trazodone 100 mg po hs is added to the regimen at patient's specific request (concordant with medication discharge list from [facility] on 03/11/19). Side effects/benefits of each formulation are re-discussed with the patient and informed consent secured. Current Side Effect: No Lab tests ordered: Yes (valproic acid level is requested) Lab tests reviewed: Yes Provider note:: Chart reviewed. Medications revisited. Patient seen in individual session. Mr Hernandez is found in a more pleasant mood in this encounter. Jovial, friendly and cooperative. Noted as an active participant in the elaboration of his treatment plan. Patient confirms sleep latency and difficulty to stay asleep. Experiences fatigue in the morning. He is agreement with the modifications brought to his medication regimen as depicted in Medications changes section (see above). Markedly improved mental status (refer to MSE report for details). Benign hospital course. Valproic acid level : pending. Psychiatry-Liaison Psychiatry will follow. Total face to face time:: 35 Mental Status Exam - Mental Status Exam Alert and Oriented to: Time, Place, Person Cognitive Function: Good Patient Appearance: Well Groomed Mood: Hopeful, Euthymic Affect: Appropriate, Normal Range Patient Behavior: Appropriate, Cooperative (friendly) Speech Pattern: Clear, Appropriate Voice Loudness: Normal Thought Process: Intact, Goal Oriented Thought Disorder: Not Present Hallucinations: Denies Suicidal Ideation: Denies Homicidal Ideation: Denies Insight/Judgement: Fair Sleep: Poorly, Difficulty falling asleep Muscle strength/Tone: Normal Gait/Station: Normal Psychiatric Treatment Plan - Problem List (1) Insomnia Current Visit: Yes Comment: . (2) Alcohol use disorder Current Visit: Yes Comment: . (3) Cocaine use disorder Current Visit: Yes Comment: . (4) Nicotine dependence Current Visit: Yes Qualifiers: Nicotine product type: cigarettes Substance use status: uncomplicated Qualified Code(s): F17.210 - Nicotine dependence, cigarettes, uncomplicated Comment: . (5) Bipolar disorder Current Visit: Yes Comment: . (6) History of posttraumatic stress disorder (PTSD) Current Visit: Yes Comment: .
[2019-03-22] MEDS: traZODone HCL 100 MG TABLET (FP) PO SCH (20:59)
[2019-03-22] MEDS: DIVALPROEX SODIUM 250 MG TABLET E.C. PO SCH (20:59)
[2019-03-22] MEDS: QUEtiapine FUMARATE 200 MG TABLET PO SCH (20:59)
[2019-03-22] MEDS: THIAMINE HCL 100 MG TABLET (FP) PO SCH (21:00)
[2019-03-22] MEDS: ARTIFICIAL TEARS (POLYVINYL ALCOHOL) OPTH DROPS OD PRN (21:01)
[2019-03-22] MEDS ORDERED: FAMOTIDINE 20 MG TABLET PO SCH (22:00)
[2019-03-23] MEDS: GABAPENTIN 300 MG CAPSULE (FP) PO SCH ×3 (07:01→21:03)
[2019-03-23] MEDS: PRENATAL VITAMINS W/ FOLIC ACID TABLET (FP) PO SCH (10:36)
[2019-03-23] MEDS: PARoxetine HCL 20 MG TABLET PO SCH (10:36)
[2019-03-23] MEDS: DIVALPROEX SODIUM 250 MG TABLET E.C. PO SCH ×2 (10:36→21:03)
[2019-03-23] MEDS: NICOTINE 21 MG/24 HOURS TOPICAL PATCH TD SCH (10:36)
[2019-03-23] MEDS: FLUTICASONE PROP 0.05% 16 GM NASAL SPRAY NS SCH ×2 (10:36→21:04)
[2019-03-23] MEDS: BUDESONIDE/FORMETEROL FUMARATE 80/4.5 mcg INHALER IH SCH ×2 (10:37→21:04)
[2019-03-23] MEDS: SELENIUM SULFIDE 2.5% LOTION 4 OZ. TP SCH (10:37)
[2019-03-23] MEDS: PANTOPRAZOLE 40 MG TABLET (FP) PO SCH (10:37)
[2019-03-23] MEDS: MELATONIN 5 MG TABLETS PO PRN (21:03)
[2019-03-23] MEDS: THIAMINE HCL 100 MG TABLET (FP) PO SCH (21:03)
[2019-03-23] MEDS: QUEtiapine FUMARATE 200 MG TABLET PO SCH (21:03)
[2019-03-23] MEDS: traZODone HCL 100 MG TABLET (FP) PO SCH (21:03)
[2019-03-23] MEDS: ARTIFICIAL TEARS (POLYVINYL ALCOHOL) OPTH DROPS OD PRN (21:05)
[2019-03-24] MEDS: GABAPENTIN 300 MG CAPSULE (FP) PO SCH ×3 (07:04→21:08)
[2019-03-24] MEDS: DIVALPROEX SODIUM 250 MG TABLET E.C. PO SCH ×2 (10:02→21:08)
[2019-03-24] MEDS: PRENATAL VITAMINS W/ FOLIC ACID TABLET (FP) PO SCH (10:03)
[2019-03-24] MEDS: PANTOPRAZOLE 40 MG TABLET (FP) PO SCH (10:03)
[2019-03-24] MEDS: FLUTICASONE PROP 0.05% 16 GM NASAL SPRAY NS SCH ×2 (10:04→21:09)
[2019-03-24] MEDS: ARTIFICIAL TEARS (POLYVINYL ALCOHOL) OPTH DROPS OD PRN (10:04)
[2019-03-24] MEDS: PARoxetine HCL 20 MG TABLET PO SCH (10:04)
[2019-03-24] MEDS: SELENIUM SULFIDE 2.5% LOTION 4 OZ. TP SCH (10:05)
[2019-03-24] MEDS: NICOTINE 21 MG/24 HOURS TOPICAL PATCH TD SCH (10:06)
[2019-03-24] MEDS: BUDESONIDE/FORMETEROL FUMARATE 80/4.5 mcg INHALER IH SCH ×2 (10:07→21:10)
[2019-03-24] MEDS: IBUPROFEN 400 MG TABLET (FP) PO PRN (21:07)
[2019-03-24] MEDS: traZODone HCL 100 MG TABLET (FP) PO SCH (21:08)
[2019-03-24] MEDS: MELATONIN 5 MG TABLETS PO PRN (21:09)
[2019-03-24] MEDS: QUEtiapine FUMARATE 200 MG TABLET PO SCH (21:09)
[2019-03-24] MEDS: THIAMINE HCL 100 MG TABLET (FP) PO SCH (21:09)
[2019-03-25] MEDS: GABAPENTIN 300 MG CAPSULE (FP) PO SCH ×3 (06:59→21:05)
[2019-03-25] MEDS: BUDESONIDE/FORMETEROL FUMARATE 80/4.5 mcg INHALER IH SCH ×2 (09:42→21:06)
[2019-03-25] MEDS: IBUPROFEN 400 MG TABLET (FP) PO PRN (09:42)
[2019-03-25] MEDS: PANTOPRAZOLE 40 MG TABLET (FP) PO SCH (09:43)
[2019-03-25] MEDS: FLUTICASONE PROP 0.05% 16 GM NASAL SPRAY NS SCH ×2 (09:43→21:07)
[2019-03-25] MEDS: DIVALPROEX SODIUM 250 MG TABLET E.C. PO SCH ×2 (09:43→21:05)
[2019-03-25] MEDS: PRENATAL VITAMINS W/ FOLIC ACID TABLET (FP) PO SCH (09:43)
[2019-03-25] MEDS: ARTIFICIAL TEARS (POLYVINYL ALCOHOL) OPTH DROPS OD PRN (09:44)
[2019-03-25] MEDS: NICOTINE 21 MG/24 HOURS TOPICAL PATCH TD SCH (09:45)
[2019-03-25] MEDS: SELENIUM SULFIDE 2.5% LOTION 4 OZ. TP SCH (09:45)
[2019-03-25] MEDS: PARoxetine HCL 20 MG TABLET PO SCH (11:46)
[2019-03-25] MEDS: THIAMINE HCL 100 MG TABLET (FP) PO SCH (21:05)
[2019-03-25] MEDS: traZODone HCL 100 MG TABLET (FP) PO SCH (21:05)
[2019-03-25] MEDS: QUEtiapine FUMARATE 200 MG TABLET PO SCH (21:05)
[2019-03-26] MEDS: GABAPENTIN 300 MG CAPSULE (FP) PO SCH ×3 (06:28→21:03)
[2019-03-26] MEDS: IBUPROFEN 400 MG TABLET (FP) PO PRN ×2 (06:29→21:06)
[2019-03-26] MEDS: DIVALPROEX SODIUM 250 MG TABLET E.C. PO SCH ×2 (12:09→21:02)
[2019-03-26] MEDS: NICOTINE 21 MG/24 HOURS TOPICAL PATCH TD SCH (12:10)
[2019-03-26] MEDS: PRENATAL VITAMINS W/ FOLIC ACID TABLET (FP) PO SCH (12:10)
[2019-03-26] MEDS: PARoxetine HCL 20 MG TABLET PO SCH (12:10)
[2019-03-26] MEDS: PANTOPRAZOLE 40 MG TABLET (FP) PO SCH (12:10)
[2019-03-26] MEDS: BUDESONIDE/FORMETEROL FUMARATE 80/4.5 mcg INHALER IH SCH ×2 (12:10→21:10)
[2019-03-26] MEDS: FLUTICASONE PROP 0.05% 16 GM NASAL SPRAY NS SCH ×2 (12:10→21:33)
[2019-03-26] MEDS: THIAMINE HCL 100 MG TABLET (FP) PO SCH (21:02)
[2019-03-26] MEDS: QUEtiapine FUMARATE 200 MG TABLET PO SCH (21:03)
[2019-03-26] MEDS: traZODone HCL 100 MG TABLET (FP) PO SCH (21:03)
[2019-03-26] MEDS: ARTIFICIAL TEARS (POLYVINYL ALCOHOL) OPTH DROPS OD PRN (21:10)
[2019-03-27] MEDS: GABAPENTIN 300 MG CAPSULE (FP) PO SCH ×3 (07:10→21:08)
[2019-03-27] MEDS: IBUPROFEN 400 MG TABLET (FP) PO PRN (07:10)
[2019-03-27] MEDS: PARoxetine HCL 20 MG TABLET PO SCH (12:03)
[2019-03-27] MEDS: DIVALPROEX SODIUM 250 MG TABLET E.C. PO SCH ×2 (12:03→21:07)
[2019-03-27] MEDS: FLUTICASONE PROP 0.05% 16 GM NASAL SPRAY NS SCH ×2 (12:03→21:09)
[2019-03-27] MEDS: PRENATAL VITAMINS W/ FOLIC ACID TABLET (FP) PO SCH (12:04)
[2019-03-27] MEDS: NICOTINE 21 MG/24 HOURS TOPICAL PATCH TD SCH (12:04)
[2019-03-27] MEDS: PANTOPRAZOLE 40 MG TABLET (FP) PO SCH (12:04)
[2019-03-27] MEDS: BUDESONIDE/FORMETEROL FUMARATE 80/4.5 mcg INHALER IH SCH ×2 (12:04→21:09)
[2019-03-27] MEDS: QUEtiapine FUMARATE 200 MG TABLET PO SCH (21:08)
[2019-03-27] MEDS: traZODone HCL 100 MG TABLET (FP) PO SCH (21:08)
[2019-03-27] MEDS: THIAMINE HCL 100 MG TABLET (FP) PO SCH (21:08)
[2019-03-28] MEDS: GABAPENTIN 300 MG CAPSULE (FP) PO SCH ×3 (06:11→21:00)
[2019-03-28] MEDS: IBUPROFEN 400 MG TABLET (FP) PO PRN ×3 (06:12→21:01)
[2019-03-28] MEDS: PRENATAL VITAMINS W/ FOLIC ACID TABLET (FP) PO SCH (09:34)
[2019-03-28] MEDS: DIVALPROEX SODIUM 250 MG TABLET E.C. PO SCH ×2 (09:34→20:59)
[2019-03-28] MEDS: FLUTICASONE PROP 0.05% 16 GM NASAL SPRAY NS SCH ×2 (09:34→21:00)
[2019-03-28] MEDS: PANTOPRAZOLE 40 MG TABLET (FP) PO SCH (09:34)
[2019-03-28] MEDS: NICOTINE 21 MG/24 HOURS TOPICAL PATCH TD SCH (09:34)
[2019-03-28] MEDS: PARoxetine HCL 20 MG TABLET PO SCH (09:34)
[2019-03-28] MEDS: BUDESONIDE/FORMETEROL FUMARATE 80/4.5 mcg INHALER IH SCH ×2 (09:35→21:00)
[2019-03-28] MEDS: QUEtiapine FUMARATE 200 MG TABLET PO SCH (21:00)
[2019-03-28] MEDS: THIAMINE HCL 100 MG TABLET (FP) PO SCH (21:00)
[2019-03-28] MEDS: traZODone HCL 100 MG TABLET (FP) PO SCH (21:00)
[2019-03-29] MEDS: GABAPENTIN 300 MG CAPSULE (FP) PO SCH ×3 (07:34→21:13)
[2019-03-29] MEDS: DIVALPROEX SODIUM 250 MG TABLET E.C. PO SCH ×2 (10:04→21:13)
[2019-03-29] MEDS: FLUTICASONE PROP 0.05% 16 GM NASAL SPRAY NS SCH ×2 (10:04→21:16)
[2019-03-29] MEDS: PRENATAL VITAMINS W/ FOLIC ACID TABLET (FP) PO SCH (10:04)
[2019-03-29] MEDS: BUDESONIDE/FORMETEROL FUMARATE 80/4.5 mcg INHALER IH SCH ×2 (10:04→21:16)
[2019-03-29] MEDS: PANTOPRAZOLE 40 MG TABLET (FP) PO SCH (10:04)
[2019-03-29] MEDS: NICOTINE 21 MG/24 HOURS TOPICAL PATCH TD SCH (10:05)
[2019-03-29] MEDS: PARoxetine HCL 20 MG TABLET PO SCH (14:07)
[2019-03-29] MEDS: IBUPROFEN 400 MG TABLET (FP) PO PRN (14:08)
[2019-03-29] MEDS: MELATONIN 5 MG TABLETS PO PRN (21:13)
[2019-03-29] MEDS: THIAMINE HCL 100 MG TABLET (FP) PO SCH (21:13)
[2019-03-29] MEDS: traZODone HCL 100 MG TABLET (FP) PO SCH (21:15)
[2019-03-29] MEDS: QUEtiapine FUMARATE 200 MG TABLET PO SCH (21:15)
[2019-03-30] MEDS: GABAPENTIN 300 MG CAPSULE (FP) PO SCH ×3 (06:40→21:24)
[2019-03-30] MEDS: BUDESONIDE/FORMETEROL FUMARATE 80/4.5 mcg INHALER IH SCH ×2 (09:55→21:26)
[2019-03-30] MEDS: PRENATAL VITAMINS W/ FOLIC ACID TABLET (FP) PO SCH (09:55)
[2019-03-30] MEDS: IBUPROFEN 400 MG TABLET (FP) PO PRN ×3 (09:56→21:25)
[2019-03-30] MEDS: FLUTICASONE PROP 0.05% 16 GM NASAL SPRAY NS SCH ×2 (09:56→21:24)
[2019-03-30] MEDS: PANTOPRAZOLE 40 MG TABLET (FP) PO SCH (09:56)
[2019-03-30] MEDS: NICOTINE 21 MG/24 HOURS TOPICAL PATCH TD SCH (09:56)
[2019-03-30] MEDS: PARoxetine HCL 20 MG TABLET PO SCH (09:56)
[2019-03-30] MEDS: DIVALPROEX SODIUM 250 MG TABLET E.C. PO SCH ×2 (09:56→21:23)
[2019-03-30] MEDS: traZODone HCL 100 MG TABLET (FP) PO SCH (21:24)
[2019-03-30] MEDS: QUEtiapine FUMARATE 200 MG TABLET PO SCH (21:25)
[2019-03-30] MEDS: THIAMINE HCL 100 MG TABLET (FP) PO SCH (21:26)
[2019-03-31] MEDS: GABAPENTIN 300 MG CAPSULE (FP) PO SCH ×3 (08:32→21:11)
[2019-03-31] MEDS: DIVALPROEX SODIUM 250 MG TABLET E.C. PO SCH ×2 (10:06→21:11)
[2019-03-31] MEDS: PARoxetine HCL 20 MG TABLET PO SCH (10:06)
[2019-03-31] MEDS: PANTOPRAZOLE 40 MG TABLET (FP) PO SCH (10:06)
[2019-03-31] MEDS: PRENATAL VITAMINS W/ FOLIC ACID TABLET (FP) PO SCH (10:06)
[2019-03-31] MEDS: FLUTICASONE PROP 0.05% 16 GM NASAL SPRAY NS SCH ×2 (10:07→21:11)
[2019-03-31] MEDS: NICOTINE 21 MG/24 HOURS TOPICAL PATCH TD SCH (10:07)
[2019-03-31] MEDS: BUDESONIDE/FORMETEROL FUMARATE 80/4.5 mcg INHALER IH SCH ×2 (10:08→21:12)
[2019-03-31] MEDS: IBUPROFEN 400 MG TABLET (FP) PO PRN ×2 (14:37→21:13)
[2019-03-31] MEDS: QUEtiapine FUMARATE 200 MG TABLET PO SCH (21:11)
[2019-03-31] MEDS: traZODone HCL 100 MG TABLET (FP) PO SCH (21:11)
[2019-03-31] MEDS: MELATONIN 5 MG TABLETS PO PRN (21:12)
[2019-03-31] MEDS: THIAMINE HCL 100 MG TABLET (FP) PO SCH (21:12)
[2019-04-01] MEDS: GABAPENTIN 300 MG CAPSULE (FP) PO SCH ×3 (06:49→21:08)
--- NOTE | 2019-04-01 10:08 | DS ---
[facility] Rehab Discharge Summary - [facility] Rehab Discharge Summary Admission Date: 03/16/19 Discharge Date: 04/02/19 - History Present History: Alcohol dependence Additional Comments: Pt is a 48 y/o male with a hx of alcohol use disorder admitted to rehab and scheduled for discharge on 04/02/19. Pt has met with his counselor, Ms Kelly Marshall and has been referred to aftercare at [facility] in [place], [place]. Pt reports he has no PCP but has been connected to [facility] to follow up with primary care and mental health after discharge. Pertinent Past History: COPD Alcohol related Seizure PTSD Chronic back pain(on Gabapentin per pt's claim) Bipolar Disorder - Discharge Physical Exam Vital Signs: Vital Signs Temperature 97.5 F L 04/01/19 06:58 Pulse Rate 85 04/01/19 06:58 Respiratory Rate 18 04/01/19 06:58 Blood Pressure 131/92 04/01/19 06:58 O2 Sat by Pulse Oximetry (%) Alert o x 3 nad oob ambulates with steady gait cardiac:s1 s2,rrr lungs:cta,tab., no wheeze,no rhonchi abdomen:soft,+bs,nt,nd extremities/skin:no edema,tattoo of "clock logo" on left lower ext. skin intact. Pertinent Admission Physical Exam Findings: Laboratory Tests 03/16/19 03/16/19 03/16/19 08:00 12:46 13:15 WBC 9.4 RBC 3.73 L Hgb 12.0 Hct 35.0 L MCV 93.9 MCH 32.2 MCHC 34.3 RDW 14.6 Plt Count 334 MPV 9.2 Sodium 141 Potassium 4.6 Chloride 108 H Carbon Dioxide 27 Anion Gap 6 L BUN 20.2 H Creatinine 0.8 Est GFR (CKD-EPI)AfAm 122.43 Est GFR (CKD-EPI)NonAf 105.63 POC Glucometer Random Glucose 143 H Calcium 8.8 Total Bilirubin 0.5 AST 36 ALT 30 Alkaline Phosphatase 89 Total Protein 6.6 Albumin 3.5 RPR Titer HIV 1&2 Antibody Screen Negative HIV P24 Antigen Negative 03/16/19 03/27/19 03/28/19 13:15 07:11 06:10 WBC RBC Hgb Hct MCV MCH MCHC RDW Plt Count MPV Sodium Potassium Chloride Carbon Dioxide Anion Gap BUN Creatinine Est GFR (CKD-EPI)AfAm Est GFR (CKD-EPI)NonAf POC Glucometer 83 92 Random Glucose Calcium Total Bilirubin AST ALT Alkaline Phosphatase Total Protein Albumin RPR Titer Nonreactive HIV 1&2 Antibody Screen HIV P24 Antigen Unremarkable - Treatment Discharge Condition: Discharge condition good Hospital Course: Rehabilitated safely and responded well CD aftercare accepted - Medication Discharge Medications: Ambulatory Orders Divalproex Sodium [Depakote ER] 500 mg PO DAILY 03/16/19 Divalproex Sodium [Divalproex Sodium ER] 1,000 mg PO HS 03/16/19 Folic Acid - 1 mg PO DAILY 03/16/19 [place] Carbonate [Eskalith -] 600 mg PO HS 03/16/19 traZODone HCL [Trazodone HCl] 100 mg PO HS PRN 03/16/19 Budesonide/Formeterol Fumarate [SYMBICORT 80/4.5mcg -] 1 inh PO BID #1 inhaler 04/01/19 Divalproex [Depakote -] 250 mg PO BID #60 tablet.ec 04/01/19 Divalproex [Depakote -] 500 mg PO BID #60 tablet.ec 04/01/19 Fluticasone Prop 0.05% Nasal [Flonase -] 1 spray NS BID #1 spray 04/01/19 Pantoprazole Sodium [Protonix -] 40 mg PO DAILY #30 tablet.ec 04/01/19 Paroxetine HCl [Paxil -] 20 mg PO DAILY #30 tablet 04/01/19 Quetiapine Fumarate [Seroquel -] 200 mg PO HS #30 tablet 04/01/19 traZODone HCL [Desyrel -] 100 mg PO HS #30 tablet 04/01/19 Gabapentin [Neurontin -] 300 mg PO Q8H #90 capsule 04/02/19 - Medication-Assisted Treatment (MAT) Medication-Assisted Treatment (MAT): No - Discharge Instructions Diet, activity, other medical instructions: Diet:regular Activity: oob ad rhianna Other medical instructions:Follow up with CD aftrecare at [facility] on [address] [place] [address] as scheduled. Follow up with primary care at [facility] on [address] [place], [place] within 1-2 weeks after discharge. - Diagnosis (1) Alcohol use disorder Current Visit: Yes Status: Chronic (2) COPD (chronic obstructive pulmonary disease) Current Visit: Yes Status: Chronic Qualifiers: COPD type: unspecified COPD Qualified Code(s): J44.9 - Chronic obstructive pulmonary disease, unspecified (3) Cocaine use disorder Current Visit: Yes Status: Chronic (4) History of posttraumatic stress disorder (PTSD) Current Visit: Yes Status: Chronic (5) Nicotine dependence Current Visit: Yes Status: Chronic Qualifiers: Nicotine product type: cigarettes Substance use status: uncomplicated Qualified Code(s): F17.210 - Nicotine dependence, cigarettes, uncomplicated (6) Alcohol related seizure Current Visit: Yes Status: Suspected (7) Chronic back pain Current Visit: Yes Status: Chronic Qualifiers: Back pain location: back pain in unspecified location - Follow-up Referral Minutes to complete discharge: 30 - AMA Did Patient Leave Against Medical Advice: No Additional Comments: Courtesy Rx for Flonase,Symbicort and Gabapentin for 30 days as requested by receiving CD aftercare site electronically sent to [facility] [address] after discharge. Reminded pt to follow up with primary care for further medical management.
[2019-04-01] MEDS: DIVALPROEX SODIUM 250 MG TABLET E.C. PO SCH ×2 (10:27→21:08)
[2019-04-01] MEDS: BUDESONIDE/FORMETEROL FUMARATE 80/4.5 mcg INHALER IH SCH ×2 (10:28→21:10)
[2019-04-01] MEDS: PARoxetine HCL 20 MG TABLET PO SCH (10:28)
[2019-04-01] MEDS: PANTOPRAZOLE 40 MG TABLET (FP) PO SCH (10:28)
[2019-04-01] MEDS: PRENATAL VITAMINS W/ FOLIC ACID TABLET (FP) PO SCH (10:28)
[2019-04-01] MEDS: NICOTINE 21 MG/24 HOURS TOPICAL PATCH TD SCH (10:29)
[2019-04-01] MEDS: FLUTICASONE PROP 0.05% 16 GM NASAL SPRAY NS SCH ×2 (10:30→21:10)
[2019-04-01] MEDS: IBUPROFEN 400 MG TABLET (FP) PO PRN ×2 (10:30→21:07)
[2019-04-01 11:19] VITALS: PULSE 103
--- NOTE | 2019-04-01 15:18 | PN ---
[facility] Progress Note Note: Patient is scheduled for discharge tomorrow. Scripts for 30 days supply of medications(Depakote 250 mg/bid, depakote 500 mg/bid, Trazadone 100 mg.hs, Seroquel 200 mg/hs, Paxil 20 mg/day) will be electronically transmitted to [facility] at [address] [place] [address]
[2019-04-01] MEDS: QUEtiapine FUMARATE 200 MG TABLET PO SCH (21:08)
[2019-04-01] MEDS: traZODone HCL 100 MG TABLET (FP) PO SCH (21:08)
[2019-04-01] MEDS: THIAMINE HCL 100 MG TABLET (FP) PO SCH (21:09)
[2019-04-01] MEDS: MELATONIN 5 MG TABLETS PO PRN (21:09)
[2019-04-02] MEDS: GABAPENTIN 300 MG CAPSULE (FP) PO SCH (05:57)
[2019-04-02 07:00] VITALS: BP 120/76; TEMP 97.2
[2019-04-02] MEDS: NICOTINE 21 MG/24 HOURS TOPICAL PATCH TD SCH (09:08)
[2019-04-02] MEDS: DIVALPROEX SODIUM 250 MG TABLET E.C. PO SCH (09:08)
[2019-04-02] MEDS: BUDESONIDE/FORMETEROL FUMARATE 80/4.5 mcg INHALER IH SCH (09:08)
[2019-04-02] MEDS: PRENATAL VITAMINS W/ FOLIC ACID TABLET (FP) PO SCH (09:08)
[2019-04-02] MEDS: PANTOPRAZOLE 40 MG TABLET (FP) PO SCH (09:08)
[2019-04-02] MEDS: PARoxetine HCL 20 MG TABLET PO SCH (09:09)
[2019-04-02] MEDS: FLUTICASONE PROP 0.05% 16 GM NASAL SPRAY NS SCH (09:11)
--- NOTE | 2019-04-02 09:31 | PN ---
[facility] Progress Note Note: Pt is discharged today as scheduled. Alert o x 3,nad oob ambulating with steady gait. Vital Signs - 24 hr 04/01/19 04/02/19 04/02/19 11:18 00:30 06:59 Temperature 97.5 F L 97.2 F L Pulse Rate 103 H 103 H Respiratory 18 18 20 Rate Blood Pressure 116/88 120/76 Please see Rehab Discharge Summary
== END 2019-04-02 10:00 | disposition home or self-care (01) | DRG 895 ==
LOC: YASAS 23:44 → Y6N 03-16 03:43 → Y5N 03-19 19:18
PROVIDERS: ADMIT Neuromusculoskeletal Medicine & OMM; ATTEND Neuromusculoskeletal Medicine & OMM
PROC: HZ2ZZZZ Detoxification Services for Substance Abuse Treatment (ICD-10-PCS; 2019-03-16)
PROC: HZ42ZZZ Group Counseling for Substance Abuse Treatment, Cognitive-Behavioral (ICD-10-PCS; principal; 2019-03-19)
DX: F10.20 Alcohol dependence, uncomplicated (principal); F14.20 Cocaine dependence, uncomplicated; G40.509 Epileptic seizures related to external causes, not intractable, without status epilepticus; F17.210 Nicotine dependence, cigarettes, uncomplicated; F31.9 Bipolar disorder, unspecified; F43.10 Post-traumatic stress disorder, unspecified; K21.9 Gastro-esophageal reflux disease without esophagitis; J44.9 Chronic obstructive pulmonary disease, unspecified; G47.00 Insomnia, unspecified; M54.89 Other dorsalgia; G89.29 Other chronic pain; Z87.820 Personal history of traumatic brain injury; Z87.828 Personal history of other (healed) physical injury and trauma; Z91.19 Patient's noncompliance with other medical treatment and regimen; Z88.0 Allergy status to penicillin; Z88.8 Allergy status to other drugs, medicaments and biological substances
CPT/HCPCS: 36415; 71045-TC-FY; 80053; 80164; 80178; 80307; 82962; 85025; 85027; 86593; 87389; 99284-25

== ENCOUNTER 2019-07-20 12:35 | Inpatient (IN) | payer OTHER ==
[2019-07-20 14:23] VITALS: BMI 25.4
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
[2019-07-20] MEDS ORDERED: MAGNESIUM CITRATE 300 ML BOTTLE PO PRN (15:57)
[2019-07-20] MEDS ORDERED: chlordiazePOXIDE HCL 25 MG CAPSULE PO PRN (15:57)
[2019-07-20] MEDS ORDERED: IBUPROFEN 400 MG TABLET (FP) PO PRN (15:57)
[2019-07-20] MEDS ORDERED: METHOCARBAMOL 500 MG TABLET PO PRN (15:57)
[2019-07-20] MEDS ORDERED: MAG HYDROX/AL HYDROX/SIMETH 30 ML UNIT-DOSE CUP PO PRN (15:57)
[2019-07-20] MEDS ORDERED: hydrOXYzine PAMOATE 25 MG CAPSULE (FP) PO PRN (15:57)
[2019-07-20] MEDS ORDERED: MELATONIN 5 MG TABLETS PO PRN (15:57)
[2019-07-20] MEDS ORDERED: MENTHOL/PHENOL 1 EACH UD MM PRN (15:57)
[2019-07-20] MEDS ORDERED: BISMUTH SUBSALICYLATE 524 MG/30 ML UD PO PRN (15:57)
[2019-07-20] MEDS ORDERED: MAGNESIUM HYDROX 2400MG/30ML ORAL SUSPENSION 30 ML CUP PO PRN (15:57)
[2019-07-20] MEDS ORDERED: ACETAMINOPHEN 325 MG TABLET (FP) PO PRN ×2 (15:57)
[2019-07-20] MEDS ORDERED: ALBUTEROL SO4 HFA INHALER IH PRN (15:59)
[2019-07-20] MEDS: PANTOPRAZOLE 40 MG TABLET PO SCH (16:43)
[2019-07-20] MEDS: chlordiazePOXIDE HCL 25 MG CAPSULE PO SCH ×2 (16:43→22:06)
[2019-07-20] MEDS: GABAPENTIN 400 MG CAPSULE PO SCH ×2 (16:43→22:06)
[2019-07-20] MEDS: NICOTINE 21 MG/24 HOURS TOPICAL PATCH TD SCH (16:47)
[2019-07-20] MEDS: THIAMINE HCL 100 MG TABLET (FP) PO SCH (22:06)
[2019-07-20] MEDS: BUDESONIDE/FORMETEROL FUMARATE 80/4.5 mcg INHALER IH SCH (22:06)
[2019-07-21] MEDS: chlordiazePOXIDE HCL 25 MG CAPSULE PO SCH ×4 (07:50→21:59)
[2019-07-21] MEDS: GABAPENTIN 400 MG CAPSULE PO SCH ×3 (07:51→21:53)
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
[2019-07-21] MEDS: NICOTINE 21 MG/24 HOURS TOPICAL PATCH TD SCH (10:18)
[2019-07-21] MEDS: BUDESONIDE/FORMETEROL FUMARATE 80/4.5 mcg INHALER IH SCH ×2 (10:19→21:56)
[2019-07-21] MEDS: PANTOPRAZOLE 40 MG TABLET PO SCH (10:19)
[2019-07-21] MEDS: PRENATAL VITAMINS W/ FOLIC ACID TABLET (FP) PO SCH (10:19)
[2019-07-21] MEDS ORDERED: ONDANSETRON *ODT* 4 MG TABLET SL PRN (10:22)
--- NOTE | 2019-07-21 10:24 | PN ---
[facility] CIWA - CIWA Score Nausea/Vomitin-No Nausea/No Vomiting Muscle Tremors: 3 Anxiety: 3 Agitation: 3 Paroxysmal Sweats: 2 Orientation: 0-Oriented Tacttile Disturbances: 0-None Auditory Disturbances: 0-None Visual Disturbances: 0-None Headache: 0-None Present CIWA-Ar Total Score: 11 BHS Progress Note (SOAP) Subjective: sweats shakes diarrhea nausea interrupted sleep Objective: 07/21/19 10:23 Vital Signs Temperature 97.3 F L 07/21/19 07:01 Pulse Rate 77 07/21/19 07:01 Respiratory Rate 18 07/21/19 07:01 Blood Pressure 137/85 07/21/19 07:01 O2 Sat by Pulse Oximetry (%) labs pending aaox3 ambulating no acute distress Assessment: 07/21/19 10:24 withdrawals Plan: continue detox increase fluids pepto prn zofran sl prn
[2019-07-21 10:33] LABS: HEMATOCRIT 40.5 % (35.4-49); HEMOGLOBIN 13.9 GM/dL (11.7-16.9); MCH 32.7 pg (25.7-33.7); MCHC 34.3 g/dl (32.0-35.9); MEAN CELL VOLUME 95.1 fl (80-96); MEAN PLT VOLUME 8.4 fl (7.5-11.1); PLATELET COUNT 402 K/MM3 (134-434); RBC 4.26 M/mm3 (4.00-5.60); RDW 14.9 % (11.9-15.9); WHITE BLOOD COUNT 6.5 K/mm3 (4.0-10.0)
[2019-07-21 10:39] LABS: ALBUMIN 3.6 g/dl (3.4-5.0); BILIRUBIN,TOTAL 0.4 mg/dL (0.2-1); BLOOD UREA NITROGEN 16.4 mg/dL (7-18); CALCIUM 9.1 mg/dL (8.5-10.1); CREATININE 0.7 mg/dL (0.55-1.3); POTASSIUM 3.9 mmol/L (3.5-5.1); TOT PROT 6.5 g/dl (6.4-8.2)
[2019-07-21] MEDS: THIAMINE HCL 100 MG TABLET (FP) PO SCH (21:53)
[2019-07-21] MEDS: QUEtiapine FUMARATE 300 MG TABLET PO SCH (21:54)
[2019-07-22] MEDS: chlordiazePOXIDE HCL 25 MG CAPSULE PO SCH ×4 (06:06→22:07)
[2019-07-22] MEDS: GABAPENTIN 400 MG CAPSULE PO SCH ×3 (06:06→22:07)
[2019-07-22] MEDS: NICOTINE 21 MG/24 HOURS TOPICAL PATCH TD SCH (11:20)
[2019-07-22] MEDS: PANTOPRAZOLE 40 MG TABLET PO SCH (11:20)
[2019-07-22] MEDS: BUDESONIDE/FORMETEROL FUMARATE 80/4.5 mcg INHALER IH SCH ×2 (11:20→22:07)
[2019-07-22] MEDS: PRENATAL VITAMINS W/ FOLIC ACID TABLET (FP) PO SCH (11:20)
--- NOTE | 2019-07-22 15:23 | PN ---
S CIWA - CIWA Score Nausea/Vomitin-Mild Nausea/No Vomiting Muscle Tremors: 2 Anxiety: 2 Agitation: 2 Paroxysmal Sweats: No Perspiration Orientation: 0-Oriented Tacttile Disturbances: 1-Very Mild Itch/Numbness Auditory Disturbances: 0-None Visual Disturbances: 0-None Headache: 1-Very Mild CIWA-Ar Total Score: 9 S Progress Note (SOAP) Subjective: alert,irritable,anxious,interrupted sleep,tremor Objective: 07/22/19 15:22 Vital Signs Temperature 97.3 F L 07/22/19 13:45 Pulse Rate 79 07/22/19 13:45 Respiratory Rate 17 07/22/19 13:45 Blood Pressure 121/81 07/22/19 13:45 O2 Sat by Pulse Oximetry (%) 07/22/19 15:22 Laboratory Last Values WBC 6.5 K/mm3 (4.0-10.0) 07/21/19 07:45 RBC 4.26 M/mm3 (4.00-5.60) 07/21/19 07:45 Hgb 13.9 GM/dL (11.7-16.9) 07/21/19 07:45 Hct 40.5 % (35.4-49) D 07/21/19 07:45 MCV 95.1 fl (80-96) 07/21/19 07:45 MCH 32.7 pg (25.7-33.7) 07/21/19 07:45 MCHC 34.3 g/dl (32.0-35.9) 07/21/19 07:45 RDW 14.9 % (11.9-15.9) 07/21/19 07:45 Plt Count 402 K/MM3 (134-434) D 07/21/19 07:45 MPV 8.4 fl (7.5-11.1) 07/21/19 07:45 Sodium 140 mmol/L (136-145) 07/21/19 07:45 Potassium 3.9 mmol/L (3.5-5.1) 07/21/19 07:45 Chloride 107 mmol/L (98-107) 07/21/19 07:45 Carbon Dioxide 25 mmol/L (21-32) 07/21/19 07:45 Anion Gap 8 MMOL/L (8-16) 07/21/19 07:45 BUN 16.4 mg/dL (7-18) 07/21/19 07:45 Creatinine 0.7 mg/dL (0.55-1.3) 07/21/19 07:45 Est GFR (CKD-EPI)AfAm 128.43 07/21/19 07:45 Est GFR (CKD-EPI)NonAf 110.81 07/21/19 07:45 Random Glucose 179 mg/dL (74-106) H 07/21/19 07:45 Calcium 9.1 mg/dL (8.5-10.1) 07/21/19 07:45 Total Bilirubin 0.4 mg/dL (0.2-1) 07/21/19 07:45 AST 21 U/L (15-37) 07/21/19 07:45 ALT 19 U/L (13-61) 07/21/19 07:45 Alkaline Phosphatase 107 U/L (45-117) 07/21/19 07:45 Total Protein 6.5 g/dl (6.4-8.2) 07/21/19 07:45 Albumin 3.6 g/dl (3.4-5.0) 07/21/19 07:45 RPR Titer Nonreactive (NONREACTIVE) 07/21/19 07:45 Assessment: 07/22/19 15:22 withdrawal symptom Plan: continue detox librium regimen,fasting glucose in am
[2019-07-22] MEDS: THIAMINE HCL 100 MG TABLET (FP) PO SCH (22:06)
[2019-07-22] MEDS: QUEtiapine FUMARATE 300 MG TABLET PO SCH (22:07)
[2019-07-23] MEDS ORDERED: chlordiazePOXIDE HCL 10 MG CAPSULE PO PRN
[2019-07-23] MEDS: chlordiazePOXIDE HCL 10 MG CAPSULE PO SCH ×4 (06:27→23:33)
[2019-07-23] MEDS: GABAPENTIN 400 MG CAPSULE PO SCH ×3 (06:27→23:32)
--- NOTE | 2019-07-23 10:33 | PN ---
[facility] CIWA - CIWA Score Nausea/Vomitin-No Nausea/No Vomiting Muscle Tremors: 2 Anxiety: 0-No Anxiety, at Ease Agitation: 0-Normal Activity Paroxysmal Sweats: No Perspiration Orientation: 0-Oriented Tacttile Disturbances: 0-None Auditory Disturbances: 0-None Visual Disturbances: 0-None Headache: 0-None Present CIWA-Ar Total Score: 2 BHS Progress Note (SOAP) Subjective: pt sleeping this morning, no complaints O: Vital Signs - 24 hr 07/22/19 07/22/19 07/22/19 13:45 16:55 21:02 Temperature 97.3 F L 97.7 F 97.5 F L Pulse Rate 79 94 H 112 H Respiratory 17 18 18 Rate Blood Pressure 121/81 130/91 141/90 07/23/19 07/23/19 07/23/19 00:27 07:29 09:59 Temperature 97.3 F L 97.2 F L Pulse Rate 101 H 119 H Respiratory 20 20 20 Rate Blood Pressure 110/76 146/96 NH high a/p: continue alcohol detox- pt has no complaints NH- high 119, EKG last year NSR, will monitor
[2019-07-23] MEDS: BUDESONIDE/FORMETEROL FUMARATE 80/4.5 mcg INHALER IH SCH ×2 (11:27→23:32)
[2019-07-23] MEDS: PANTOPRAZOLE 40 MG TABLET PO SCH (11:27)
[2019-07-23] MEDS: NICOTINE 21 MG/24 HOURS TOPICAL PATCH TD SCH (11:27)
[2019-07-23] MEDS: PRENATAL VITAMINS W/ FOLIC ACID TABLET (FP) PO SCH (11:27)
[2019-07-23] MEDS ORDERED: cloNIDine HCL 0.1 MG TABLET PO PRN (14:01)
--- NOTE | 2019-07-23 15:09 | PN ---
[facility] Progress Note Note: Pt complaining of chest pain. Pt with no known major cardiac RF: no h/o CAD, DM , no high cholesterol, no h/o HTN. Pt states mid-sternal chest pain started about an hour ago, with no radiation of pain. Pt has h/o GERD. PE: lungs clear heart RRR, tachy, chest pain- over lower sternum Vital Signs - 24 hr 07/22/19 07/22/19 07/23/19 16:55 21:02 00:27 Temperature 97.7 F 97.5 F L Pulse Rate 94 H 112 H Respiratory 18 18 20 Rate Blood Pressure 130/91 141/90 07/23/19 07/23/19 07:29 09:59 Temperature 97.3 F L 97.2 F L Pulse Rate 101 H 119 H Respiratory 20 20 Rate Blood Pressure 110/76 146/96 pulse ox 98. EKG- non-specific ST-t wave abnormality, tachy at 110 a/p: chest pain- will try mylanta- if pain not improved will send to ER for r/o OR eval. 30 mins after Mylanta- pt still with pain mid chest- will send to [facility] ER for evaluation. D/w Dr. Brownlee in ER- will send for r/o OR
[2019-07-23] MEDS: QUEtiapine FUMARATE 300 MG TABLET PO SCH (23:32)
[2019-07-23] MEDS: THIAMINE HCL 100 MG TABLET (FP) PO SCH (23:33)
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
[2019-07-24] MEDS ORDERED: QUEtiapine FUMARATE 50 MG TABLET PO ONE (03:29)
--- NOTE | 2019-07-24 03:29 | PN ---
S Progress Note Note: pt returned from ER and missed PM meds. next due 6 am . One-time order Ishanl
[2019-07-24] MEDS: chlordiazePOXIDE HCL 10 MG CAPSULE PO SCH ×2 (04:08→17:31)
[2019-07-24] MEDS: GABAPENTIN 400 MG CAPSULE PO SCH ×3 (05:24→22:06)
--- NOTE | 2019-07-24 12:03 | PN ---
S CIWA - CIWA Score Nausea/Vomitin-No Nausea/No Vomiting Muscle Tremors: 1-None Visible, but [place] Anxiety: 2 Agitation: 2 Paroxysmal Sweats: 1-Minimal Palms Moist Orientation: 0-Oriented Tacttile Disturbances: 0-None Auditory Disturbances: 0-None Visual Disturbances: 0-None Headache: 1-Very Mild CIWA-Ar Total Score: 7 [facility] Progress Note (SOAP) Subjective: pt was sent to Er for eval of chest pain- eval neg for CA and PE. Pt feels fine today- no chest pain. Anticipate discharge tomorrow. O: Vital Signs - 24 hr 07/23/19 07/24/19 07/24/19 13:28 04:00 10:03 Temperature 98.8 F 97.2 F L 98.1 F Pulse Rate 118 H 98 H 120 H Respiratory 18 18 18 Rate Blood Pressure 149/89 141/90 129/98 Laboratory Tests 07/21/19 07/21/19 07/21/19 07:45 07:45 07:45 WBC 6.5 RBC 4.26 Hgb 13.9 Hct 40.5 D MCV 95.1 MCH 32.7 MCHC 34.3 RDW 14.9 Plt Count 402 D MPV 8.4 Sodium 140 Potassium 3.9 Chloride 107 Carbon Dioxide 25 Anion Gap 8 BUN 16.4 Creatinine 0.7 Est GFR (CKD-EPI)AfAm 128.43 Est GFR (CKD-EPI)NonAf 110.81 Random Glucose 179 H Fasting Glucose Calcium 9.1 Total Bilirubin 0.4 AST 21 ALT 19 Alkaline Phosphatase 107 Total Protein 6.5 Albumin 3.6 RPR Titer Nonreactive 07/23/19 07:25 WBC RBC Hgb Hct MCV MCH MCHC RDW Plt Count MPV Sodium Potassium Chloride Carbon Dioxide Anion Gap BUN Creatinine Est GFR (CKD-EPI)AfAm Est GFR (CKD-EPI)NonAf Random Glucose Fasting Glucose 110 H Calcium Total Bilirubin AST ALT Alkaline Phosphatase Total Protein Albumin RPR Titer a/p AUD- continue detox anticipate discharge tomorrow- to talk to counselor re discharge plan no chest pain today
[2019-07-24] MEDS: NICOTINE 21 MG/24 HOURS TOPICAL PATCH TD SCH (13:30)
[2019-07-24] MEDS: PANTOPRAZOLE 40 MG TABLET PO SCH (13:30)
[2019-07-24] MEDS: BUDESONIDE/FORMETEROL FUMARATE 80/4.5 mcg INHALER IH SCH ×2 (13:30→22:06)
[2019-07-24] MEDS: PRENATAL VITAMINS W/ FOLIC ACID TABLET (FP) PO SCH (13:30)
[2019-07-24] MEDS: QUEtiapine FUMARATE 300 MG TABLET PO SCH (22:06)
[2019-07-24] MEDS: THIAMINE HCL 100 MG TABLET (FP) PO SCH (22:06)
[2019-07-25] MEDS ORDERED: chlordiazePOXIDE HCL 10 MG CAPSULE PO ONE (05:00)
[2019-07-25] MEDS: GABAPENTIN 400 MG CAPSULE PO SCH (05:50)
[2019-07-25 09:04] VITALS: BP 131/89; PULSE 104; TEMP 97.3
--- NOTE | 2019-07-26 10:32 | EKG ---
Test Reason : Blood Pressure : / mmHG Vent. Rate : 111 BPM Atrial Rate : 111 BPM P-R Int : 150 ms QRS Dur : 086 ms QT Int : 322 ms P-R-T Axes : 034 007 086 degrees QTc Int : 437 ms SINUS TACHYCARDIA NONSPECIFIC ST AND T WAVE ABNORMALITY ABNORMAL ECG WHEN COMPARED WITH ECG OF 13-JUN-2018 14:15, NONSPECIFIC T WAVE ABNORMALITY NOW EVIDENT IN LATERAL LEADS Confirmed by Godwin Rayo ([id number]) on 07/26/2019 10:32:25 AM Referred By: Confirmed By:Godwin Rayo
== END 2019-07-25 07:15 | disposition home or self-care (01) | DRG 897 ==
LOC: YASAS 12:35 → Y6N 15:41
PROVIDERS: ADMIT Allergy & Immunology; ATTEND Allergy & Immunology
PROC: HZ2ZZZZ Detoxification Services for Substance Abuse Treatment (ICD-10-PCS; principal; 2019-07-20)
DX: F10.230 Alcohol dependence with withdrawal, uncomplicated (principal); F14.20 Cocaine dependence, uncomplicated; F19.282 Other psychoactive substance dependence with psychoactive substance-induced sleep disorder; F17.210 Nicotine dependence, cigarettes, uncomplicated; F31.9 Bipolar disorder, unspecified; F43.10 Post-traumatic stress disorder, unspecified; J44.9 Chronic obstructive pulmonary disease, unspecified; K21.9 Gastro-esophageal reflux disease without esophagitis; R56.9 Unspecified convulsions; M54.89 Other dorsalgia; G89.29 Other chronic pain; R07.9 Chest pain, unspecified; Z87.828 Personal history of other (healed) physical injury and trauma; Z88.0 Allergy status to penicillin; Z88.8 Allergy status to other drugs, medicaments and biological substances
CPT/HCPCS: 36415; 80053; 82947; 85027; 86593; 93005; 93010; J0735; Q0162

== ENCOUNTER 2019-07-23 16:32 | Emergency (ER) | payer OTHER ==
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
[2019-07-23] MEDS ORDERED: ACETAMINOPHEN 1000 MG/100 ML VIAL (NON FORMULARY) IVPB ONE (16:57)
[2019-07-23] MEDS ORDERED: FAMOTIDINE 20 MG/50 ML IVPB 20 MG/50 ML MG IVPB ONE ×2 (16:57→17:34)
[2019-07-23] MEDS ORDERED: SODIUM CHLORIDE 0.9% 500 ML INFUS.BAG IV ONE ×2 (16:57→20:51)
[2019-07-23] MEDS ORDERED: ASPIRIN 81 MG CHEWABLE TABLETS PO ONE (17:05)
--- NOTE | 2019-07-23 17:05 | PDOC ---
Heart Score/ECG Review - ECG Impressions Comment:: 07/23/19 19:04 Sinus tachycardia, HR 113, no DAVID/STD/TWI ED Treatment Course - LABORATORY CBC & Chemistry Diagram: 07/23/19 17:20 07/23/19 17:20 Medical Decision Making - Medical Decision Making 07/23/19 17:03 Patient seen as pre-attending with Dr. Mathias (PGY-2) 49 y/o male with acute onset of chest pain around 2 pm today. Pain is constant, substernal, squeezing, non radiating with shortness of breath no associated lightheadedness, palpitations Reports cardiac history of arryhtmia w/extended admission at [facility] however denies any CABG, h/o AR Family history significant for maternal of AR @ age 63 As per EMR, patient has h/o TBI, ETOH abuse, cocaine abuse (last use 1 week previous), Will obtain Troponin x2, EKG, CXR, r/o ACS, also consider cocaine induced AR/ cocaine induced CP Last drink 4 days previous -will give Limbrium; monitor for DT's 07/23/19 19:01 Troponin (-) x1 EKG w/o acute ischemic change as documented in EKG section of EMR Patient signed out to Dr. Kam (Attending) for further management Discharge - Discharge Information Problems reviewed: Yes Clinical Impression/Diagnosis: Chest pain Qualifiers: Chest pain type: unspecified Qualified Code(s): R07.9 - Chest pain, unspecified - Follow up/Referral - Patient Discharge Instructions - Post Discharge Activity
[2019-07-23] MEDS ORDERED: chlordiazePOXIDE HCL 25 MG CAPSULE PO ONE (17:10)
[2019-07-23 17:13] VITALS: TEMP 97.9; BMI 26.4
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
[2019-07-23] MEDS ORDERED: ACETAMINOPHEN INJECTION 100 ML IVPB ONE (17:34)
[2019-07-23] MEDS ORDERED: chlordiazePOXIDE HCL 25 MG CAPSULE ONE (17:34)
[2019-07-23] MEDS ORDERED: ASPIRIN 81 MG CHEWABLE TABLETS ONE (17:34)
[2019-07-23] MEDS ORDERED: morphine CARPU-JECT 4 MG/1 ML DISP.SYRIN IVPUSH ONE (17:45)
[2019-07-23] MEDS ORDERED: morphine SULFATE 4 MG/ML VIAL ONE (18:11)
[2019-07-23 18:20] LABS: EOS % 8.8 % (0-4.5); HEMATOCRIT 44.2 % (35.4-49); HEMOGLOBIN 15.1 GM/dL (11.7-16.9); LYMPH % 26.7 % (8-40); MCH 32.3 pg (25.7-33.7); MCHC 34.1 g/dl (32.0-35.9); MEAN CELL VOLUME 94.7 fl (80-96); MEAN PLT VOLUME 8.7 fl (7.5-11.1); MONO % 14.6 % (3.8-10.2); NEUT % 48.9 % (42.8-82.8); RBC 4.66 M/mm3 (4.00-5.60); RDW 14.7 % (11.9-15.9); WHITE BLOOD COUNT 7.5 K/mm3 (4.0-10.0)
[2019-07-23] MEDS ORDERED: ONDANSETRON 4 MG/2 ML VIAL IVPUSH ONE (18:49)
[2019-07-23] MEDS ORDERED: ONDANSETRON 4 MG/2 ML VIAL ONE (18:53)
[2019-07-23 18:56] LABS: PLATELET COUNT 395 K/MM3 (134-434); PLATELET ESTIMATE ADEQUATE
[2019-07-23] MEDS ORDERED: methylPREDNISolone NA SUCC 125 MG/2 ML VIAL IVPB ONE (18:58)
[2019-07-23] MEDS ORDERED: methylPREDNISolone NA SUCC 125 MG/2 ML VIAL ONE (19:00)
[2019-07-23] MEDS ORDERED: ALBUTEROL SO4 2.5/IPRATROPIUM 0.5 INH SOL 3 ML VIAL.NEB. NEB ONE (19:00)
[2019-07-23] MEDS: ALBUTEROL SO4 2.5/IPRATROPIUM 0.5 INH SOL 3 ML VIAL.NEB. NEB SCH ×3 (19:02→19:40)
[2019-07-23 19:09] LABS: ALBUMIN 3.5 g/dl (3.4-5.0); BILIRUBIN,TOTAL 0.2 mg/dL (0.2-1); BLOOD UREA NITROGEN 12.1 mg/dL (7-18); CALCIUM 9.5 mg/dL (8.5-10.1); CREATININE 0.7 mg/dL (0.55-1.3); POTASSIUM 5.1 mmol/L (3.5-5.1)
[2019-07-24 02:02] VITALS: BP 121/76; PULSE 102
--- NOTE | 2019-07-24 17:09 | EKG ---
Test Reason : Blood Pressure : / mmHG Vent. Rate : 113 BPM Atrial Rate : 113 BPM P-R Int : 142 ms QRS Dur : 086 ms QT Int : 332 ms P-R-T Axes : 033 004 048 degrees QTc Int : 455 ms SINUS TACHYCARDIA MODERATE VOLTAGE CRITERIA FOR LVH, MAY BE NORMAL VARIANT BORDERLINE ECG WHEN COMPARED WITH ECG OF 23-JUL-2019 14:53, ST NO LONGER ELEVATED IN INFERIOR LEADS CLINICAL CORRELATION IS RECOMMENDED Confirmed by JOSE DIOR, JONATHAN ([id number]) on 07/24/2019 5:09:06 PM Referred By: Confirmed By:JONATHAN GARCIA MD
== END 2019-07-24 02:28 | disposition short-term general hospital (02) ==
LOC: JER 16:32
PROC: 3E0F7GC Introduction of Other Therapeutic Substance into Respiratory Tract, Via Natural or Artificial Opening (ICD-10-PCS; principal; 2019-07-23)
PROC: 3E033GC Introduction of Other Therapeutic Substance into Peripheral Vein, Percutaneous Approach (ICD-10-PCS; 2019-07-23)
PROC: 3E033GC Introduction of Other Therapeutic Substance into Peripheral Vein, Percutaneous Approach (ICD-10-PCS; 2019-07-23)
PROC: 3E033NZ Introduction of Analgesics, Hypnotics, Sedatives into Peripheral Vein, Percutaneous Approach (ICD-10-PCS; 2019-07-23)
PROC: 3E0333Z Introduction of Anti-inflammatory into Peripheral Vein, Percutaneous Approach (ICD-10-PCS; 2019-07-23)
DX: R07.9 Chest pain, unspecified (principal); J44.9 Chronic obstructive pulmonary disease, unspecified; F31.9 Bipolar disorder, unspecified; K21.9 Gastro-esophageal reflux disease without esophagitis; F10.10 Alcohol abuse, uncomplicated; F14.10 Cocaine abuse, uncomplicated; Z87.820 Personal history of traumatic brain injury; Z88.0 Allergy status to penicillin; Z88.8 Allergy status to other drugs, medicaments and biological substances
CPT/HCPCS: 36415; 71045-TC-FY; 71275-TC; 80053; 84484; 85025; 85379; 93005; 93010; 99285-25; J0131; Q9967

== ENCOUNTER 2019-11-13 09:06 | Inpatient (IN) | payer OTHER ==
[2019-11-13] MEDS ORDERED: METHOCARBAMOL 500 MG TABLET PO PRN (10:51)
[2019-11-13] MEDS ORDERED: NICOTINE POLACRILEX 2 MG GUM BUC PRN (10:51)
[2019-11-13] MEDS ORDERED: IBUPROFEN 400 MG TABLET (FP) PO PRN (10:51)
[2019-11-13] MEDS ORDERED: MAGNESIUM HYDROX 2400MG/30ML ORAL SUSPENSION 30 ML CUP PO PRN (10:51)
[2019-11-13] MEDS ORDERED: MAG HYDROX/AL HYDROX/SIMETH 30 ML UNIT-DOSE CUP PO PRN (10:51)
[2019-11-13] MEDS ORDERED: MENTHOL/PHENOL 1 EACH UD MM PRN (10:51)
[2019-11-13] MEDS ORDERED: ONDANSETRON *ODT* 4 MG TABLET SL ONE (10:51)
[2019-11-13] MEDS ORDERED: ACETAMINOPHEN 325 MG TABLET (FP) PO PRN ×2 (10:51)
[2019-11-13] MEDS ORDERED: BISMUTH SUBSALICYLATE 524 MG/30 ML UD PO PRN (10:51)
[2019-11-13] MEDS ORDERED: MAGNESIUM CITRATE 300 ML BOTTLE PO PRN (10:51)
[2019-11-13] MEDS ORDERED: chlordiazePOXIDE HCL 25 MG CAPSULE PO PRN (10:51)
[2019-11-13] MEDS ORDERED: ALBUTEROL SO4 HFA INHALER IH PRN (10:55)
[2019-11-13 10:59] VITALS: BMI 25.1
[2019-11-13] MEDS: hydrOXYzine PAMOATE 25 MG CAPSULE (FP) PO SCH ×4 (14:10→23:01)
[2019-11-13] MEDS: chlordiazePOXIDE HCL 25 MG CAPSULE PO SCH ×2 (18:09→23:01)
[2019-11-13] MEDS: MELATONIN 5 MG TABLETS PO SCH (23:01)
[2019-11-13] MEDS: QUEtiapine FUMARATE 200 MG TABLET PO SCH (23:01)
[2019-11-13] MEDS: BUDESONIDE/FORMETEROL FUMARATE 80/4.5 mcg INHALER IH SCH (23:01)
[2019-11-13] MEDS: THIAMINE HCL 100 MG TABLET (FP) PO SCH (23:01)
[2019-11-14] MEDS: chlordiazePOXIDE HCL 25 MG CAPSULE PO SCH ×4 (06:02→22:23)
[2019-11-14] MEDS: hydrOXYzine PAMOATE 25 MG CAPSULE (FP) PO SCH ×5 (06:02→22:23)
[2019-11-14] MEDS: PRENATAL VITAMINS W/ FOLIC ACID TABLET (FP) PO SCH (10:15)
[2019-11-14] MEDS: NICOTINE 21 MG/24 HOURS TOPICAL PATCH TD SCH (10:15)
[2019-11-14] MEDS: BUDESONIDE/FORMETEROL FUMARATE 80/4.5 mcg INHALER IH SCH ×2 (10:17→22:23)
[2019-11-14] MEDS: PANTOPRAZOLE 40 MG TABLET PO SCH (10:18)
[2019-11-14 11:00] LABS: ALBUMIN 3.2 g/dl (3.4-5.0); BILIRUBIN,TOTAL 0.6 mg/dL (0.2-1); BLOOD UREA NITROGEN 19.3 mg/dL (7-18); CALCIUM 8.8 mg/dL (8.5-10.1); CREATININE 0.7 mg/dL (0.55-1.3); POTASSIUM 4.3 mmol/L (3.5-5.1)
[2019-11-14 11:04] LABS: HEMATOCRIT 39.7 % (35.4-49); HEMOGLOBIN 13.5 GM/dL (11.7-16.9); MCHC 34.1 g/dl (32.0-35.9); MEAN CELL VOLUME 96.7 fl (80-96); MEAN PLT VOLUME 8.8 fl (7.5-11.1); PLATELET COUNT 478 K/MM3 (134-434); RBC 4.11 M/mm3 (4.00-5.60); RDW 14.2 % (11.9-15.9); WHITE BLOOD COUNT 7.7 K/mm3 (4.0-10.0)
[2019-11-14] MEDS: QUEtiapine FUMARATE 200 MG TABLET PO SCH (22:23)
[2019-11-14] MEDS: THIAMINE HCL 100 MG TABLET (FP) PO SCH (22:23)
[2019-11-14] MEDS: MELATONIN 5 MG TABLETS PO SCH (22:24)
[2019-11-15] MEDS: hydrOXYzine PAMOATE 25 MG CAPSULE (FP) PO SCH ×5 (05:55→22:06)
[2019-11-15] MEDS: chlordiazePOXIDE HCL 25 MG CAPSULE PO SCH ×4 (05:55→22:06)
[2019-11-15] MEDS: BUDESONIDE/FORMETEROL FUMARATE 80/4.5 mcg INHALER IH SCH ×2 (10:13→22:09)
[2019-11-15] MEDS: NICOTINE 21 MG/24 HOURS TOPICAL PATCH TD SCH (10:13)
[2019-11-15] MEDS: PRENATAL VITAMINS W/ FOLIC ACID TABLET (FP) PO SCH (10:13)
[2019-11-15] MEDS: PANTOPRAZOLE 40 MG TABLET PO SCH (10:14)
[2019-11-15 16:24] LABS: URINE APPEARANCE CLEAR; URINE BILIRUBIN NEGATIVE (NEGATIVE); URINE COLOR YELLOW; URINE GLUCOSE (UA) NEGATIVE (NEGATIVE); URINE KETONE NEGATIVE (NEGATIVE); URINE LEUK ESTERASE NEGATIVE (NEGATIVE); URINE NITRITE NEGATIVE (NEGATIVE); URINE PROTEIN NEGATIVE (NEGATIVE); URINE UROBILINOGEN 0.2 mg/dL (0.2-1.0)
[2019-11-15] MEDS ORDERED: QUEtiapine FUMARATE 100 MG TABLET (FP) ONE (20:05)
[2019-11-15] MEDS: QUEtiapine FUMARATE 300 MG TABLET PO SCH (22:05)
[2019-11-15] MEDS: MELATONIN 5 MG TABLETS PO SCH (22:06)
[2019-11-15] MEDS: GABAPENTIN 300 MG CAPSULE PO SCH (22:06)
[2019-11-15] MEDS: THIAMINE HCL 100 MG TABLET (FP) PO SCH (22:06)
[2019-11-16] MEDS ORDERED: chlordiazePOXIDE HCL 10 MG CAPSULE PO PRN
[2019-11-16] MEDS: chlordiazePOXIDE HCL 10 MG CAPSULE PO SCH ×4 (05:23→22:45)
[2019-11-16] MEDS: GABAPENTIN 300 MG CAPSULE PO SCH ×3 (05:23→22:22)
[2019-11-16] MEDS: hydrOXYzine PAMOATE 25 MG CAPSULE (FP) PO SCH ×5 (05:23→22:22)
[2019-11-16] MEDS: PANTOPRAZOLE 40 MG TABLET PO SCH (10:22)
[2019-11-16] MEDS: PRENATAL VITAMINS W/ FOLIC ACID TABLET (FP) PO SCH (10:22)
[2019-11-16] MEDS: NICOTINE 21 MG/24 HOURS TOPICAL PATCH TD SCH (10:22)
[2019-11-16] MEDS: BUDESONIDE/FORMETEROL FUMARATE 80/4.5 mcg INHALER IH SCH ×2 (10:22→22:21)
[2019-11-16] MEDS ORDERED: QUEtiapine FUMARATE 100 MG TABLET (FP) ONE (19:43)
[2019-11-16] MEDS: QUEtiapine FUMARATE 300 MG TABLET PO SCH (22:21)
[2019-11-16] MEDS: MELATONIN 5 MG TABLETS PO SCH (22:22)
[2019-11-16] MEDS: THIAMINE HCL 100 MG TABLET (FP) PO SCH (22:22)
[2019-11-17] MEDS: GABAPENTIN 300 MG CAPSULE PO SCH ×3 (06:31→22:17)
[2019-11-17] MEDS: hydrOXYzine PAMOATE 25 MG CAPSULE (FP) PO SCH ×5 (06:31→22:17)
[2019-11-17] MEDS: chlordiazePOXIDE HCL 10 MG CAPSULE PO SCH ×2 (06:31→17:42)
[2019-11-17] MEDS: BUDESONIDE/FORMETEROL FUMARATE 80/4.5 mcg INHALER IH SCH ×2 (09:26→22:18)
[2019-11-17] MEDS: NICOTINE 21 MG/24 HOURS TOPICAL PATCH TD SCH (09:26)
[2019-11-17] MEDS: PRENATAL VITAMINS W/ FOLIC ACID TABLET (FP) PO SCH (09:27)
[2019-11-17] MEDS: PANTOPRAZOLE 40 MG TABLET PO SCH (09:27)
[2019-11-17] MEDS ORDERED: QUEtiapine FUMARATE 100 MG TABLET (FP) ONE (21:25)
[2019-11-17] MEDS: THIAMINE HCL 100 MG TABLET (FP) PO SCH (22:17)
[2019-11-17] MEDS: MELATONIN 5 MG TABLETS PO SCH (22:18)
[2019-11-17] MEDS: QUEtiapine FUMARATE 300 MG TABLET PO SCH (22:18)
[2019-11-18] MEDS ORDERED: chlordiazePOXIDE HCL 10 MG CAPSULE PO ONE (05:00)
[2019-11-18] MEDS: GABAPENTIN 300 MG CAPSULE PO SCH (06:27)
[2019-11-18] MEDS: hydrOXYzine PAMOATE 25 MG CAPSULE (FP) PO SCH ×2 (06:27→09:46)
[2019-11-18 09:11] VITALS: BP 117/82; PULSE 105; TEMP 97.3
[2019-11-18] MEDS: NICOTINE 21 MG/24 HOURS TOPICAL PATCH TD SCH (09:46)
[2019-11-18] MEDS: PANTOPRAZOLE 40 MG TABLET PO SCH (09:46)
[2019-11-18] MEDS: BUDESONIDE/FORMETEROL FUMARATE 80/4.5 mcg INHALER IH SCH (09:46)
[2019-11-18] MEDS: PRENATAL VITAMINS W/ FOLIC ACID TABLET (FP) PO SCH (09:48)
== END 2019-11-18 09:50 | disposition other institution (70) | DRG 897 ==
LOC: YASAS 09:06 → Y3N 11:02
PROVIDERS: ADMIT Allergy & Immunology; ATTEND Allergy & Immunology
PROC: HZ2ZZZZ Detoxification Services for Substance Abuse Treatment (ICD-10-PCS; principal; 2019-11-13)
DX: F10.230 Alcohol dependence with withdrawal, uncomplicated (principal); F17.213 Nicotine dependence, cigarettes, with withdrawal; F19.24 Other psychoactive substance dependence with psychoactive substance-induced mood disorder; F31.9 Bipolar disorder, unspecified; F43.10 Post-traumatic stress disorder, unspecified; F43.9 Reaction to severe stress, unspecified; F45.22 Body dysmorphic disorder; K21.9 Gastro-esophageal reflux disease without esophagitis; G62.9 Polyneuropathy, unspecified; Z86.69 Personal history of other diseases of the nervous system and sense organs; Z87.820 Personal history of traumatic brain injury; Z87.828 Personal history of other (healed) physical injury and trauma; Z98.890 Other specified postprocedural states; Z90.81 Acquired absence of spleen; Z91.19 Patient's noncompliance with other medical treatment and regimen
CPT/HCPCS: 36415; 80053; 81003; 85027; 86780; 87389; U0003

== ENCOUNTER 2020-03-14 09:57 | Inpatient (IN) | payer OTHER ==
--- NOTE | 2020-03-14 10:17 | BHS.RME ---
Substance Use & Tx History - Substance Use History Alcohol Substance amount: 1-2 pints Frequency of use: Daily Substance route: Oral Date of Last Use: 03/14/20 Cocaine- Powder Substance amount: 2 grams Frequency of use: Daily Substance route: Inhalation (ex: sniffing or snorting) Date of Last Use: 03/12/20 Nicotine Substance amount: one pack Frequency of use: Daily Substance route: Smoking Date of Last Use: 03/14/20 - Last Treatment Date of last treatment: November 2019 Where was last treatment: Detox Physical/Psych/Mental Status - Behavior General Behavior: Increased activity (restlessness, agitation) Eye Contact: Normal - Cooperativeness Cooperativeness: Cooperative - Thinking Thought Processes: Tight Thought content: Future oriented - Physical Health Problems Is patient presently having any pain?: No Does patient presently have any injuries (include location): No Does patient currently have a fever: No CIWA Nausea/Vomitin-Mild Nausea/No Vomiting Muscle Tremors: 3 Anxiety: 4-Mod. Anxious/Guarded Agitation: 3 Paroxysmal Sweats: 3 Orientation: 0-Oriented Tacttile Disturbances: 0-None Auditory Disturbances: 0-None Visual Disturbances: 0-None Headache: 4-Moderately Severe CIWA-Ar Total Score: 18
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
[2020-03-14 10:26] VITALS: BMI 25.9
[2020-03-14] MEDS ORDERED: chlordiazePOXIDE HCL 25 MG CAPSULE PO PRN (10:26)
[2020-03-14] MEDS ORDERED: MAG HYDROX/AL HYDROX/SIMETH 30 ML UNIT-DOSE CUP PO PRN (10:26)
[2020-03-14] MEDS ORDERED: METHOCARBAMOL 500 MG TABLET PO PRN (10:26)
[2020-03-14] MEDS ORDERED: MAGNESIUM HYDROX 2400MG/30ML ORAL SUSPENSION 30 ML CUP PO PRN (10:26)
[2020-03-14] MEDS ORDERED: NICOTINE POLACRILEX 2 MG GUM BUC PRN (10:26)
[2020-03-14] MEDS ORDERED: ONDANSETRON *ODT* 4 MG TABLET SL PRN (10:26)
[2020-03-14] MEDS ORDERED: MENTHOL/PHENOL 1 EACH UD MM PRN (10:26)
[2020-03-14] MEDS ORDERED: MAGNESIUM CITRATE 300 ML BOTTLE PO PRN (10:26)
[2020-03-14] MEDS ORDERED: BISMUTH SUBSALICYLATE 262 MG/15 ML BTL PO PRN (10:26)
[2020-03-14] MEDS ORDERED: ACETAMINOPHEN 325 MG TABLET (FP) PO PRN ×2 (10:26)
--- OUTSIDE RECORDS SUMMARY | 2020-03-14 10:31 | XMS ---
:1970 Author Organization [facility] Support Name Relationship Address Phone SHELLI HENRIQUEZ [phone] [place] [address] UE Unavailable Unavailable Unavailable LARISSA XAVIER [address] [place] [address] SHELLI HENRIQUEZ Spouse [address] [place] [address] Re-disclosure Warning The records that you are about to access may contain information from federally- assisted alcohol or drug abuse programs. If such information is present, then the following federally mandated warning applies: This information has been disclosed to you from records protected by federal confidentiality rules (42 CFR part 2). The federal rules prohibit you from making any further disclosure of this information unless further disclosure is expressly permitted by the written consent of the person to whom it pertains or as otherwise permitted by 42 CFR part 2. A general authorization for the release of medical or other information is NOT sufficient for this purpose. The Federal rules restrict any use of the information to criminally investigate or prosecute any alcohol or drug abuse patient.The records that you are about to access may contain highly sensitive health information, the redisclosure of which is protected by Article 27-F of the [facility] Public Health law. If you continue you may haveaccess to information: Regarding HIV / AIDS; Provided by facilities licensed or operated by the [facility] Office of Mental Health; or Provided by the [facility] Office for People With Developmental Disabilities. If such information is present, then the following [facility] mandated warning applies: This information has been disclosed to you from confidential records which are protected by state law. State law prohibits you from making any further disclosure of this information without the specific written consent of the person to whom it pertains, or as otherwise permitted by law. Any unauthorized further disclosure in violation of state law may result in a fine or long-term sentence or both. A general authorization for the release of medical or other information is NOT sufficient authorization for further disclosure. Insurance Providers Payer name Policy type Policy ID Covered Covered constitution party's Policy P carlitos / Coverage constitution party ID relationship to Ritchie Inf ormation type ritchie [employer] [id number] SP [id number] MEDICARE MEDICAID [id number] SP [id number] JONAH MEDICARE [id number] SP [id number] HEALTH FIRST [id number] SP [id number] MEDICARE HIP MEDICARE [id number] SP [id number] VIP VALUE [id number] SP [id number] OPTIONS-MEDIC ARE MEDICAID [id number] SP [id number] HEALTH FIRST [id number] SP [id number] MEDICARE SELF PAY SP INSURANCE MEDICARE [id number] SP [id number] A VALUE [id number] SP [id number] OPTIONS-MEDIC ARE HIP MEDICARE [id number] SP [id number] VIP HIP MEDICARE [id number] SP [id number] VIP MEDICAID [id number] SP [id number] JONAH MEDICARE [id number] SP [id number] VALUE [id number] SP [id number] OPTIONS-MEDIC ARE Results ID Date Data Source [id number] 12/10/2019 11:05:00 PM EDT [facility] Name Value Range Interpretation Code Description Data Joanna rce(s) Supporting Document(s ) COV2 [facility] This lab was ordered by [facility] and reported by [facility]. ID Date Data Source [id number] 11/13/2019 11:15:00 AM EDT [facility] Name Value Range Interpretation Description Data Sup porting Code Source(s) Document(s ) SARS [facility] CORONAVIRUS 2 RNA This lab was ordered by [facility] Ac ct Bill Inter and reported by [facility]. ID Date Data Source [id number] 10/21/2019 09:27:00 AM EDT [facility] Name Value Range Interpretation Description Data Sup porting Code Source(s) Document(s ) SARS [facility] Coronavirus 2 RNA Presence Respiratory Specimen CHARLIE Probe Detection This lab was ordered by [facility] and rep orted by [facility]. Procedure
[2020-03-14] MEDS ORDERED: ALBUTEROL SO4 HFA INHALER IH PRN (10:51)
[2020-03-14] MEDS: BUDESONIDE/FORMETEROL FUMARATE 80/4.5 mcg INHALER IH SCH ×2 (11:12→23:17)
[2020-03-14] MEDS: chlordiazePOXIDE HCL 25 MG CAPSULE PO SCH ×3 (11:18→23:12)
[2020-03-14] MEDS: NICOTINE 21 MG/24 HOURS TOPICAL PATCH TD SCH (11:19)
[2020-03-14] MEDS ORDERED: hydrOXYzine PAMOATE 25 MG CAPSULE (FP) PO PRN (12:05)
[2020-03-14] MEDS: GABAPENTIN 300 MG CAPSULE PO SCH ×2 (13:13→23:12)
[2020-03-14] MEDS ORDERED: hydrOXYzine PAMOATE 25 MG CAPSULE (FP) PO SCH (14:00)
[2020-03-14 14:50] LABS: HEMATOCRIT 41.3 % (35.4-49); HEMOGLOBIN 14.3 GM/dL (11.7-16.9); MCH 33.5 pg (25.7-33.7); MCHC 34.7 g/dl (32.0-35.9); MEAN CELL VOLUME 96.6 fl (80-96); MEAN PLT VOLUME 8.7 fl (7.5-11.1); PLATELET COUNT 369 K/MM3 (134-434); RBC 4.27 M/mm3 (4.00-5.60); RDW 14.2 % (11.9-15.9); WHITE BLOOD COUNT 7.4 K/mm3 (4.0-10.0)
[2020-03-14 15:36] LABS: ALBUMIN 4.2 g/dl (3.4-5.0); BLOOD UREA NITROGEN 22.8 mg/dL (7-18); CREATININE 0.9 mg/dL (0.55-1.3); POTASSIUM 3.9 mmol/L (3.5-5.1); TOT PROT 7.4 g/dl (6.4-8.2)
[2020-03-14] MEDS: IBUPROFEN 400 MG TABLET (FP) PO PRN (17:51)
[2020-03-14] MEDS ORDERED: THIAMINE HCL 100 MG TABLET (FP) PO SCH (22:00)
[2020-03-14] MEDS ORDERED: MELATONIN 5 MG TABLETS PO SCH (22:00)
[2020-03-15] MEDS: chlordiazePOXIDE HCL 25 MG CAPSULE PO SCH ×3 (06:42→18:32)
[2020-03-15] MEDS: GABAPENTIN 300 MG CAPSULE PO SCH ×2 (06:42→14:47)
[2020-03-15] MEDS ORDERED: PRENATAL VITAMINS W/ FOLIC ACID TABLET (FP) PO SCH (10:00)
[2020-03-15] MEDS ORDERED: PANTOPRAZOLE 40 MG TABLET PO SCH (10:00)
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
--- NOTE | 2020-03-15 11:09 | PN ---
[facility] CIWA - CIWA Score Nausea/Vomitin-No Nausea/No Vomiting Muscle Tremors: 3 Anxiety: 2 Agitation: 3 Paroxysmal Sweats: 3 Orientation: 0-Oriented Tacttile Disturbances: 0-None Auditory Disturbances: 0-None Visual Disturbances: 0-None Headache: 0-None Present CIWA-Ar Total Score: 11 S Progress Note (SOAP) Subjective: feet pain from walking sweats shakes body aches Objective: 03/15/20 12:03 Vital Signs Temperature 97.7 F 03/15/20 08:34 Pulse Rate 70 03/15/20 08:34 Respiratory Rate 18 03/15/20 08:34 Blood Pressure 140/94 03/15/20 08:34 O2 Sat by Pulse Oximetry (%) 95 03/15/20 08:34 Laboratory Tests 03/14/20 03/14/20 03/14/20 11:00 11:00 11:00 WBC 7.4 RBC 4.27 Hgb 14.3 Hct 41.3 MCV 96.6 H MCH 33.5 MCHC 34.7 RDW 14.2 Plt Count 369 D MPV 8.7 Sodium 138 Potassium 3.9 Chloride 106 Carbon Dioxide 24 Anion Gap 9 BUN 22.8 H Creatinine 0.9 Est GFR (CKD-EPI)AfAm 115.83 Est GFR (CKD-EPI)NonAf 99.94 Random Glucose 185 H Calcium 9.0 Total Bilirubin 1.0 AST 23 ALT 17 Alkaline Phosphatase 90 Total Protein 7.4 Albumin 4.2 Syphilis Serology Non-reactive COVID-19 (CHARLIE) HIV Ag/Ab Combo Qual 03/14/20 03/14/20 11:00 11:00 WBC RBC Hgb Hct MCV MCH MCHC RDW Plt Count MPV Sodium Potassium Chloride Carbon Dioxide Anion Gap BUN Creatinine Est GFR (CKD-EPI)AfAm Est GFR (CKD-EPI)NonAf Random Glucose Calcium Total Bilirubin AST ALT Alkaline Phosphatase Total Protein Albumin Syphilis Serology COVID-19 (CHARLIE) Not detected HIV Ag/Ab Combo Qual Negative labs noted aaox3 ambulating no acute distress Assessment: 03/15/20 12:04 withdrawals Plan: continue detox motrin prn anlagesic balm increase fluids
[2020-03-15] MEDS: IBUPROFEN 400 MG TABLET (FP) PO PRN (11:33)
[2020-03-15] MEDS: NICOTINE 21 MG/24 HOURS TOPICAL PATCH TD SCH (11:34)
[2020-03-15] MEDS: BUDESONIDE/FORMETEROL FUMARATE 80/4.5 mcg INHALER IH SCH (11:34)
[2020-03-15] MEDS ORDERED: PNEUMOC 13-VAL CONJ-DIP CRM/PF 0.5 ML DISP.SYRIN IM ONE (12:00)
[2020-03-15 18:03] VITALS: BP 135/90; PULSE 92
[2020-03-15] MEDS ORDERED: NALOXONE (NARCAN) HCL 4 MG/0.1 ML SPRAY NS ONE (18:17)
--- NOTE | 2020-03-15 18:31 | PN ---
[facility] Progress Note Note: Patient was found unresponsive by MANE cline during medication round, rapid response was called at 5:49pm. Patient was found lying in bed, unresponsive to name, tactile and painful stimuli. Pulse palpable at 88. agonal breathing with episodes of apnea at 10-12 breath per minute. Saturating at 93-96% with 2 liters nasal Canula. 911 was activated, Unscrambler and EMS responded. Patient was transported to [facility] ED for further evaluation and treatment by EMS at 6:28pm.
[2020-03-15 20:05] VITALS: TEMP 98.7
[2020-03-15] MEDS ORDERED: METHYL SALICYLATE/MENTHOL OINT 30 GM TUBE TP SCH (22:00)
[2020-03-16] MEDS ORDERED: chlordiazePOXIDE HCL 25 MG CAPSULE PO SCH (05:00)
[2020-03-16] MEDS ORDERED: PNEUMOCOCCAL 23 VACCINE 0.5 ML VIAL IM ONE (12:00)
[2020-03-16] MEDS ORDERED: FLU VACCINE (FLULAVAL) PF 60 MCG/0.5 ML SYRINGE 2020-2021 IM ONE (12:00)
[2020-03-17] MEDS ORDERED: chlordiazePOXIDE HCL 10 MG CAPSULE PO PRN
[2020-03-17] MEDS ORDERED: chlordiazePOXIDE HCL 10 MG CAPSULE PO SCH (05:00)
[2020-03-18] MEDS ORDERED: chlordiazePOXIDE HCL 10 MG CAPSULE PO SCH (05:00)
[2020-03-19] MEDS ORDERED: chlordiazePOXIDE HCL 10 MG CAPSULE PO ONE (05:00)
== END 2020-03-15 23:00 | disposition short-term general hospital (02) | DRG 897 ==
LOC: YASAS 09:57 → Y6N 10:44
PROVIDERS: ADMIT Allergy & Immunology; ATTEND Allergy & Immunology
PROC: HZ2ZZZZ Detoxification Services for Substance Abuse Treatment (ICD-10-PCS; principal; 2020-03-14)
DX: F10.230 Alcohol dependence with withdrawal, uncomplicated (principal); F14.20 Cocaine dependence, uncomplicated; F17.210 Nicotine dependence, cigarettes, uncomplicated; F31.9 Bipolar disorder, unspecified; J44.9 Chronic obstructive pulmonary disease, unspecified; K21.9 Gastro-esophageal reflux disease without esophagitis; M25.559 Pain in unspecified hip; Z86.69 Personal history of other diseases of the nervous system and sense organs; Z90.49 Acquired absence of other specified parts of digestive tract; Z90.81 Acquired absence of spleen; Z87.820 Personal history of traumatic brain injury; Z56.0 Unemployment, unspecified; Z88.0 Allergy status to penicillin; Z88.8 Allergy status to other drugs, medicaments and biological substances; Z98.890 Other specified postprocedural states
CPT/HCPCS: 36415; 80053; 85027; 86780; 87389; C9803; U0003

== ENCOUNTER 2020-03-15 18:43 | Inpatient (IN) | payer OTHER ==
[2020-03-15] MEDS ORDERED: RAPID SEQUENCE INTUBATION KIT NR ONE (19:08)
[2020-03-15] MEDS ORDERED: MIDAZOLAM IN 0.9 % SOD.CHLORID 1 MG/1 ML PLAST..BAG ONE (19:11)
[2020-03-15 19:17] VITALS: BMI 25.9
[2020-03-15] MEDS ORDERED: PROPOFOL 200 MG/20 ML VIAL IVPUSH ONE (19:23)
[2020-03-15] MEDS ORDERED: ETOMIDATE 20 MG/10 ML AMPUL IVPUSH ONE (19:23)
[2020-03-15] MEDS ORDERED: ROCURONIUM BROMIDE 50 MG/5 ML VIAL IV ONE (19:23)
[2020-03-15] MEDS ORDERED: SODIUM CHLORIDE 0.9% 1000 ML INFUS.BAG IV ONE (19:25)
[2020-03-15] MEDS: FENTANYL IVPB 500 MCG/100 ML BAG IVPB SCH (19:40)
[2020-03-15] MEDS: MIDAZOLAM 100 MG in SODIUM CHLORIDE 100 ML IVPB SCH (19:40)
[2020-03-15] MEDS ORDERED: FENTANYL IVPB 500 MCG/100 ML BAG IVPB ONE (19:49)
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
[2020-03-15] MEDS ORDERED: PROPOFOL 1,000,000 MCG/100 ML VIAL ONE ×2 (20:00→21:55)
[2020-03-15] MEDS: PROPOFOL 1,000,000 MCG/100 ML VIAL IVPUSH SCH (20:00)
[2020-03-15 20:02] LABS: BASO % 1.4 % (0-2.0); EOS % 7.6 % (0-4.5); HEMOGLOBIN 13.9 GM/dL (11.7-16.9); LYMPH % 37.1 % (8-40); MEAN CELL VOLUME 96.9 fl (80-96); MEAN PLT VOLUME 8.7 fl (7.5-11.1); NEUT % 41.9 % (42.8-82.8); PLATELET COUNT 389 K/MM3 (134-434); RBC 4.23 M/mm3 (4.00-5.60); RDW 14.4 % (11.9-15.9); WHITE BLOOD COUNT 7.6 K/mm3 (4.0-10.0)
[2020-03-15 20:21] LABS: ALBUMIN 3.4 g/dl (3.4-5.0); ALK PHOS 97 U/L (45-117); ANION GAP 5 MMOL/L (8-16); BILIRUBIN,TOTAL 0.2 mg/dL (0.2-1); BLOOD UREA NITROGEN 17.7 mg/dL (7-18); CALCIUM 8.9 mg/dL (8.5-10.1); CHLORIDE 109 mmol/L (98-107); CO2 27 mmol/L (21-32); CREATININE 0.8 mg/dL (0.55-1.3); GLUCOSE,RANDOM 101 mg/dL (74-106); POTASSIUM 4.8 mmol/L (3.5-5.1); SGOT/AST 15 U/L (15-37); SGPT/ALT 14 U/L (13-61); SODIUM 140 mmol/L (136-145); TOT PROT 6.4 g/dl (6.4-8.2); VENOUS BASE EXCESS -1.9 mmol/L (-2-2); VENOUS O2 SATURATION 86.1 % (70-80); VENOUS PCO2 43.6 mmHg (38-52); VENOUS PH 7.353 (7.310-7.410)
[2020-03-15] MEDS ORDERED: AZTREONAM 1 GM in DEXTROSE 5%-WATER - 50 ML IVPB ONE (20:53)
--- NOTE | 2020-03-15 20:53 | PDOC ---
Documentation entered by Raiza Andrew SCRIBE, acting as scribe for Yuliana Moses DO. Yuliana Moses DO: This documentation has been prepared by the yanetibe, Raiza Andrew SCRIBE, under my direction and personally reviewed by me in its entirety. I confirm that the documentation accurately reflects all work, treatment, procedures, and medical decision making performed by me. Attending Attestation - Resident Resident Name: David Pond - ED Attending Attestation I have performed the following: I have examined & evaluated the patient, The case was reviewed & discussed with the resident, I agree w/resident's findings & plan, Exceptions are as noted - HPI HPI: 03/15/20 19:55 Patient is a 49 year old male with a significant past medical history of alcohol abuse and substance abuse (cocain) who presents to the ED, from [facility], after being found unresponsive. Per EMS, patient was found with pupils dilated but reactive and they think he could have possible had a seizure. EMS also reports that patient was unresponsive to the narcan administered. Last known well: around 5:30pm today Allergies: penicillins and carbamazepine HPI is limited to the patient being only minimally responsive - Physicial Exam PE: 03/15/20 20:38 Gen: unresponsive, gargling on vomitus heent: Pupils 4mm and reactive b/l, no gag reflex when suctioning neck: supple heart: +s1s2 reg lungs: coarse bs R base > L base abd: soft, nt/nd +bs ext: no c/c/e, no track wu neuro: unresponsive, no gag reflex, no response to pain in extremities - Critical Care Time Total Critical Care Time: 60 Critical Care Statement: The care of this patient involved high complexity decision making to prevent further life threatening deterioration of the patient's condition and/or to evaluate & treat vital organ system(s) failure or risk of failure. - Medical Decision Making 03/15/20 20:41 a/p: 49yo male from [facility] who is unresponsive -pt found at [facility] at 545 unresponsive, given narcan 4mg without any change in responsiveness -pt unable to protect his airway, intubated for airway protection -labs, head ct, cxr ordered -suspect pt aspirated given vomitus in the mouth with gargling -will send blood cultures and start abx -will need ICU care 10/07/20 20:52 cxr shows ett in place and ngt in place 03/15/20 20:[address] without acute findings labs reviewed case discussed with the ICU residents who accepts pt to service Heart Score/ECG Review - ECG Intrepretation Comment:: 03/15/20 20:56 sinus at 88, nl axis, nl interval, no acute st/t wave findings Discharge - Discharge Information Problems reviewed: Yes Clinical Impression/Diagnosis: Unresponsive state, Alcohol use disorder, Dependent on ventilator Cocaine dependence Qualifiers: Substance use status: uncomplicated Qualified Code(s): F14.20 - Cocaine dependence, uncomplicated Condition: Critical - Follow up/Referral - Patient Discharge Instructions - Post Discharge Activity
[2020-03-15] MEDS ORDERED: AZTREONAM 1 GM VIAL (RESTRICTED TO ID) ONE (21:00)
[2020-03-15 21:26] LABS: METHADONE, UR NEGATIVE ng/ml (CUTOFF=300); PHENCYCLIDINE,URINE NEGATIVE ng/ml (CUTOFF=25); URINE AMPHETAMINES NEGATIVE ng/ml (CUTOFF=500); URINE BARBITURATES NEGATIVE ng/ml (CUTOFF=200)
[2020-03-15 21:27] LABS: OPIATES, URI NEGATIVE ng/ml (CUTOFF=300)
[2020-03-15 21:35] LABS: COCAINE, UR POSITIVE ng/ml (CUTOFF=300)
[2020-03-15 21:36] LABS: URINE BENZODIAZEPINES POSITIVE ng/ml (CUTOFF=200)
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
[2020-03-15] MEDS ORDERED: SODIUM CHLORIDE 1,000 ML IV SCH (22:45)
[2020-03-16] MEDS ORDERED: PNEUMOC 13-VAL CONJ-DIP CRM/PF 0.5 ML DISP.SYRIN IM ONE (00:19)
[2020-03-16] MEDS ORDERED: MIDAZOLAM IN 0.9 % SOD.CHLORID 1 MG/1 ML PLAST..BAG ONE (00:57)
[2020-03-16] MEDS: PROPOFOL 1,000,000 MCG/100 ML VIAL IVPUSH SCH (01:00)
[2020-03-16] MEDS: PANTOPRAZOLE SODIUM 40 MG VIAL IVPUSH SCH ×2 (01:00→10:29)
[2020-03-16] MEDS: FENTANYL IVPB 500 MCG/100 ML BAG IVPB SCH (01:00)
[2020-03-16] MEDS: MUPIROCIN 2% TOPICAL OINTMENT FOR DECOLONIZATION NS SCH ×3 (01:01→22:36)
[2020-03-16 01:26] LABS: INR 1.05 (0.83-1.09); PROTHROMBIN TIME (PATIENT) 12.4 SEC (9.7-13.0)
[2020-03-16 01:28] LABS: ACTIVATED PTT 33.1 SECONDS (25.2-36.5)
[2020-03-16] MEDS: MIDAZOLAM 100 MG in SODIUM CHLORIDE 100 ML IVPB SCH (03:57)
[2020-03-16] MEDS ORDERED: THIAMINE HCL 200 MG/2 ML VIAL IVPB ONE (07:00)
[2020-03-16 07:03] LABS: ALBUMIN 1.9 g/dl (3.4-5.0); BILIRUBIN,TOTAL 0.2 mg/dL (0.2-1); BLOOD UREA NITROGEN 10.3 mg/dL (7-18); CREATININE 0.5 mg/dL (0.55-1.3); MAGNESIUM 1.2 mg/dL (1.8-2.4); PHOSPHOROUS 1.9 mg/dL (2.5-4.9)
[2020-03-16 07:08] LABS: TOT PROT 3.6 g/dl (6.4-8.2)
[2020-03-16 07:16] LABS: CALCIUM 5.6 mg/dL (8.5-10.1); POTASSIUM 2.9 mmol/L (3.5-5.1)
[2020-03-16] MEDS ORDERED: levETIRAcetam 500 MG/5 ML INJECTION VIAL IVPB ONE ×3 (07:25→14:18)
[2020-03-16] MEDS ORDERED: DEXTROSE 50%-WATER - 25 GM/50 ML VIAL IVPUSH ONE (07:30)
[2020-03-16 07:32] LABS: ARTERIAL BLD GAS O2 SATURATION 98.7 mmHg (95-98); ARTERIAL BLOOD GAS BASE EXCESS -0.4 mmol/L (-2-2); ARTERIAL BLOOD GAS PO2 136.7 mmHg (80-100); ARTERIAL BLOOD GAS pH 7.407 (7.350-7.450)
[2020-03-16 07:33] LABS: ALLENS TEST POSITIVE
[2020-03-16 07:34] LABS: VENT MODE A/C; VENT RATE 12
[2020-03-16] MEDS ORDERED: CALCIUM GLUCONATE 10% - 1,000 MG/10 ML VIAL IVPB ONE (07:35)
[2020-03-16] MEDS ORDERED: MAGNESIUM SULF 50% (8.12 MEQ/2 ML-1 GM VIAL) IVPB ONE (08:00)
[2020-03-16] MEDS ORDERED: POTASSIUM PHOSPHATE 30 MM in DEXTROSE 5%-WATER - 250 ML IVPB ONE (09:00)
[2020-03-16 09:26] LABS: HEMATOCRIT 37.4 % (35.4-49); HEMOGLOBIN 12.5 GM/dL (11.7-16.9); MCH 32.7 pg (25.7-33.7); MCHC 33.5 g/dl (32.0-35.9); MEAN CELL VOLUME 97.5 fl (80-96); MEAN PLT VOLUME 8.1 fl (7.5-11.1); PLATELET COUNT 342 K/MM3 (134-434); RBC 3.84 M/mm3 (4.00-5.60); RDW 14.2 % (11.9-15.9); WHITE BLOOD COUNT 11.2 K/mm3 (4.0-10.0)
[2020-03-16 09:50] LABS: ALBUMIN 2.9 g/dl (3.4-5.0); BILIRUBIN,TOTAL 0.2 mg/dL (0.2-1); BLOOD UREA NITROGEN 10.4 mg/dL (7-18); CALCIUM 8.3 mg/dL (8.5-10.1); CREATININE 0.7 mg/dL (0.55-1.3); PHOSPHOROUS 2.8 mg/dL (2.5-4.9); TOT PROT 5.5 g/dl (6.4-8.2)
[2020-03-16] MEDS: ENOXAPARIN NA (PORCINE) 40 MG/0.4 ML DISP.SYRIN SQ SCH (10:29)
[2020-03-16] MEDS: DEXTROSE 5%-0.45% SALINE 1,000 ML IV SCH (10:31)
[2020-03-16] MEDS ORDERED: chlordiazePOXIDE HCL 25 MG CAPSULE PO PRN (10:39)
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
[2020-03-16] MEDS: chlordiazePOXIDE HCL 25 MG CAPSULE PO SCH ×3 (12:09→22:34)
--- NOTE | 2020-03-16 12:29 | PN ---
Teaching Attending Note Name of Resident: Skyler Ni ATTENDING PHYSICIAN STATEMENT I saw and evaluated the patient. I reviewed the resident's note and discussed the case with the resident. I agree with the resident's findings and plan as documented. SUBJECTIVE: 49 M, GERD, COPD, alcohol abuse, substance abuse (cocaine), and history of withdrawal seizures. Admitted via the ER after being found unresponsive. Intubated in the ED. Seizure activity noted. AC Mode of vent. No pressors. Agitated and moving all extremities. Intake & Output 03/13/20 03/14/20 03/15/20 03/16/20 23:59 23:59 23:59 23:59 Intake Total 800 Output Total 900 Balance -100 Weight 186 lb Last Vital Signs Temp Pulse Resp BP Pulse Ox 97.6 F 87 16 113/69 98 03/16/20 10:00 03/16/20 11:54 03/16/20 10:00 03/16/20 10:00 03/16/20 11:54 Active Medications Chlordiazepoxide HCl (Librium -) 50 mg PO [id number] [facility] Stop: 03/17/20 23:01 Chlordiazepoxide HCl (Librium -) 25 mg PO [id number] [facility] Stop: 03/18/20 23:01 Chlordiazepoxide HCl (Librium -) 25 mg PO Q4H PRN PRN Reason: WITHDRAWAL(CONT SUBST) Stop: 03/18/20 23:59 Chlordiazepoxide HCl (Librium -) 10 mg PO [id number] [facility] Stop: 03/19/20 23:01 Chlordiazepoxide HCl (Librium -) 10 mg PO Q12H [facility] Stop: 03/20/20 17:01 Chlordiazepoxide HCl (Librium -) 10 mg PO Q4H PRN PRN Reason: WITHDRAWAL(CONT SUBST) Stop: 03/20/20 00:00 Chlordiazepoxide HCl (Librium -) 10 mg PO ONCE@0500 ONE Stop: 03/21/20 05:01 Chlorhexidine Gluconate (Hibiclens For Decolonization -) 1 applic TP HS [facility] Enoxaparin Sodium (Lovenox -) 40 mg SQ DAILY [facility] Last Admin: 03/16/20 10:29 Dose: 40 mg Documented by: Fentanyl (Sublimaze Ivpb) 500 mcg in 100 mls @ 16.874 mls/hr IVPB TITR JANEE Last Titration: 03/16/20 08:00 Dose: 0 mcg/kg/hr, 0 mls/hr Documented by: Midazolam HCl 100 mg/ Sodium (Chloride) 100 mls @ 1 mls/hr IVPB TITR JANEE; Protocol Last Titration: 03/16/20 08:00 Dose: 0 mg/hr, 0 mls/hr Documented by: Propofol (Diprivan -) 1,000,000 mcg in 100 mls @ 2.531 mls/hr IVPUSH TITR JANEE; Protocol Last Titration: 03/16/20 08:00 Dose: 0 mcg/kg/min, 0 mls/hr Documented by: Dextrose/Sodium Chloride (D5-1/2ns -) 1,000 mls @ 75 mls/hr IV ASDIR JANEE Last Admin: 03/16/20 10:31 Dose: 75 mls/hr Documented by: Levetiracetam (Keppra Injection -) 1,500 mg IVPB BID JANEE Lorazepam (Ativan Injection -) 2 mg IVPUSH Q8H PRN PRN Reason: ANXIETY Mupirocin (Bactroban Ointment (For Decolonization) -) 1 applic NS BID JANEE Stop: 03/20/20 22:44 Last Admin: 03/16/20 10:30 Dose: 1 applic Documented by: Pantoprazole Sodium (Protonix Iv) 40 mg IVPUSH DAILY JANEE Last Admin: 03/16/20 10:29 Dose: 40 mg Documented by: Pneumococcal 13-Valent Conj Vacc (Prevnar 13 Syringe -) 0.5 ml IM .ONCE ONE Stop: 03/16/20 00:20 GENERAL: Agitated on vent HEAD: Normal with no signs of trauma. EYES: No scleral icterus ENT: ET in place NECK: no JVD LUNGS: BL crackles HEART: RRR, s1, s2 ABDOMEN: Soft, non distended. Normal bowel sounds MSK: warm, well-perfused. No peripheral edema in all extremities NEUROLOGICAL: Agitated, moving all extremities SKIN: Multiple tattoos, mild maculopapular rash on upper chest area CT head: No gross CT evidence of acute intracranial pathology is identified. Correlate clinically to determine further evaluation. The calvarium is intact. Opacified ethmoid air cells and frontal sinuses with air-fluid levels in the maxillary ant ra and sphenoid sinus likely related to the presence of a nasogastric and orotracheal tube. Correlate clinically CXR: A single view of the chest has been submitted. Since the prior study of 07/23/2019 an endotracheal tube has been inserted and the tip is well above the fabby. NG tube has been inserted and the tip is below the GE junction. There are prominent central markings, prominent knob, and large heart with old rib trauma. Since 07/23/2019 endotracheal tube and nasogastric tube are new. The central markings have increased slightly. Correlation recommended ASSESSMENT/PLAN: Acute Respiratory Failure R/O Aspiration PNA Seizure GERD COPD Alcohol abuse Substance abuse (cocaine) History of withdrawal seizures Hilar Lymphadenopathy Wean trials to extubate Empiric ABX Strict I & O Neuro evaluation Seizure precautions Monitor for withdrawal VTE prophylaxis GI prophylaxis Will need CT Chest follow up as an outpatient Follow Ammonia level Requires ICU monitoring Dr Lynne Critical care time spent in reviewing chart, evaluating patient and formulating plan - 36 minutes.
[2020-03-16] MEDS ORDERED: LORazepam 2 MG/ML SDV VIAL IVPUSH ONE (13:01)
[2020-03-16] MEDS ORDERED: LORazepam 2 MG/ML SDV VIAL IVPUSH PRN (13:19)
--- NOTE | 2020-03-16 13:22 | EKG ---
Test Reason : Blood Pressure : / mmHG Vent. Rate : 088 BPM Atrial Rate : 088 BPM P-R Int : 142 ms QRS Dur : 086 ms QT Int : 374 ms P-R-T Axes : 060 020 039 degrees QTc Int : 452 ms NORMAL SINUS RHYTHM NORMAL ECG WHEN COMPARED WITH ECG OF 23-JUL-2019 16:59, NO SIGNIFICANT CHANGE WAS FOUND Confirmed by ABDIRIZAK TATE MD ([id number]) on 03/16/2020 1:22:37 PM Referred By: Confirmed By:ABDIRIZAK TATE MD
[2020-03-16] MEDS ORDERED: PNEUMOCOCCAL 23 VACCINE 0.5 ML VIAL IM ONE (15:00)
--- NOTE | 2020-03-16 15:24 | PN ---
Physical Exam: SUBJECTIVE: Patient seen and examined. Patient was extubated. Patient is agitated and unable to answer questions. OBJECTIVE: Vital Signs Period Temp Pulse Resp BP Sys/Prince Pulse Ox Last 24 Hr 97.6 F-98.6 F 74-94 12-19 102-126/48-96 92-100 GENERAL: The patient is awake. Agitated HEAD: Normal with no signs of trauma. PERRL, sclera anicteric, MMM LUNGS: rhonici b/l , no accessory muscle use. HEART: Regular rate and rhythm, S1, S2 without murmur, rub or gallop. ABDOMEN: Soft, nontender, nondistended, normoactive bowel sounds, no guarding, no rebound EXTREMITIES: warm, well-perfused, no edema. tattoos NEUROLOGICAL: unable to assess as patient is agitated PSYCH: agitated and unable to answer questions SKIN: tattoos, maculopapular rash on upper region of the chest Laboratory Results - last 24 hr 03/15/20 03/15/20 03/15/20 18:10 18:10 19:00 WBC 7.6 Corrected WBC (auto) RBC 4.23 Hgb 13.9 Hct 41.0 MCV 96.9 H MCH 33.0 MCHC 34.0 RDW 14.4 Plt Count 389 MPV 8.7 Absolute Neuts (auto) 3.2 Neutrophils % 41.9 L Lymphocytes % 37.1 D Monocytes % 12.0 H Eosinophils % 7.6 H Basophils % 1.4 Nucleated RBC % 0 Platelet Estimate Platelet Comment PT with INR INR PTT (Actin FS) Anticoagulation Therapy Puncture Site Patient Temperature ABG pH ABG pCO2 ABG pO2 ABG HCO3 ABG O2 Sat (Measured) ABG O2 Content ABG Base Excess Wilfred Test VBG pH 7.353 POC VBG pCO2 43.6 POC VBG pO2 53.3 H VBG HCO3 23.7 VBG O2 Sat ([place]) 86.1 H VBG Base Excess -1.9 Patient On Oxygen O2 Delivery Device Oxygen Flow Rate Vent Mode Vent Rate Mechanical Rate PEEP Pressure Support Vent Sodium Potassium Chloride Carbon Dioxide Anion Gap BUN Creatinine Est GFR (CKD-EPI)AfAm Est GFR (CKD-EPI)NonAf Random Glucose Lactic Acid Calcium Phosphorus Magnesium Total Bilirubin AST ALT Alkaline Phosphatase Ammonia Creatine Kinase Troponin I Total Protein Albumin TSH Salicylates 2.8 Opiates Screen Methadone Screen Acetaminophen < 2 Barbiturate Screen Phencyclidine Screen Ur Amphetamines Screen MDMA (Ecstasy) Screen Benzodiazepines Screen Cocaine Screen U Marijuana (THC) Screen Alcohol, Quantitative 03/15/20 03/15/20 03/15/20 19:00 19:00 19:00 WBC Corrected WBC (auto) RBC Hgb Hct MCV MCH MCHC RDW Plt Count MPV Absolute Neuts (auto) Neutrophils % Lymphocytes % Monocytes % Eosinophils % Basophils % Nucleated RBC % Platelet Estimate Platelet Comment PT with INR INR PTT (Actin FS) Anticoagulation Therapy Puncture Site Patient Temperature ABG pH ABG pCO2 ABG pO2 ABG HCO3 ABG O2 Sat (Measured) ABG O2 Content ABG Base Excess Wilfred Test VBG pH POC VBG pCO2 POC VBG pO2 VBG HCO3 VBG O2 Sat ([place]) VBG Base Excess Patient On Oxygen O2 Delivery Device Oxygen Flow Rate Vent Mode Vent Rate Mechanical Rate PEEP Pressure Support Vent Sodium 140 Potassium 4.8 Chloride 109 H Carbon Dioxide 27 Anion Gap 5 L BUN 17.7 Creatinine 0.8 Est GFR (CKD-EPI)AfAm 121.57 Est GFR (CKD-EPI)NonAf 104.89 Random Glucose 101 Lactic Acid 1.7 Calcium 8.9 Phosphorus Magnesium Total Bilirubin 0.2 AST 15 ALT 14 Alkaline Phosphatase 97 Ammonia 48.80 H Creatine Kinase 98 Troponin I < 0.02 Total Protein 6.4 Albumin 3.4 TSH Salicylates Opiates Screen Methadone Screen Acetaminophen Barbiturate Screen Phencyclidine Screen Ur Amphetamines Screen MDMA (Ecstasy) Screen Benzodiazepines Screen Cocaine Screen U Marijuana (THC) Screen Alcohol, Quantitative < 3 03/15/20 03/16/20 03/16/20 20:20 00:00 06:00 WBC Cancelled Corrected WBC (auto) Cancelled RBC Cancelled Hgb Cancelled Hct Cancelled MCV Cancelled MCH Cancelled MCHC Cancelled RDW Cancelled Plt Count Cancelled MPV Cancelled Absolute Neuts (auto) Cancelled Neutrophils % Cancelled Lymphocytes % Cancelled Monocytes % Cancelled Eosinophils % Cancelled Basophils % Cancelled Nucleated RBC % Cancelled Platelet Estimate Cancelled Platelet Comment Cancelled PT with INR 12.40 INR 1.05 PTT (Actin FS) 33.1 Anticoagulation Therapy Puncture Site Patient Temperature ABG pH ABG pCO2 ABG pO2 ABG HCO3 ABG O2 Sat (Measured) ABG O2 Content ABG Base Excess Wilfred Test VBG pH POC VBG pCO2 POC VBG pO2 VBG HCO3 VBG O2 Sat ([place]) VBG Base Excess Patient On Oxygen O2 Delivery Device Oxygen Flow Rate Vent Mode Vent Rate Mechanical Rate PEEP Pressure Support Vent Sodium Potassium Chloride Carbon Dioxide Anion Gap BUN Creatinine Est GFR (CKD-EPI)AfAm Est GFR (CKD-EPI)NonAf Random Glucose Lactic Acid Calcium Phosphorus Magnesium Total Bilirubin AST ALT Alkaline Phosphatase Ammonia Creatine Kinase Troponin I Total Protein Albumin TSH Salicylates Opiates Screen Negative Methadone Screen Negative Acetaminophen Barbiturate Screen Negative Phencyclidine Screen Negative Ur Amphetamines Screen Negative MDMA (Ecstasy) Screen Negative Benzodiazepines Screen Positive A* Cocaine Screen Positive A* U Marijuana (THC) Screen Negative Alcohol, Quantitative 03/16/20 03/16/20 03/16/20 06:00 06:00 07:00 WBC Corrected WBC (auto) RBC Hgb Hct MCV MCH MCHC RDW Plt Count MPV Absolute Neuts (auto) Neutrophils % Lymphocytes % Monocytes % Eosinophils % Basophils % Nucleated RBC % Platelet Estimate Platelet Comment PT with INR INR PTT (Actin FS) Anticoagulation Therapy No Result Required. Puncture Site Right radial Patient Temperature No Result Required. ABG pH 7.407 ABG pCO2 39.20 ABG pO2 136.7 H ABG HCO3 24.1 ABG O2 Sat (Measured) 98.7 H ABG O2 Content No Result Required. ABG Base Excess -0.4 Wilfred Test Positive VBG pH POC VBG pCO2 POC VBG pO2 VBG HCO3 VBG O2 Sat ([place]) VBG Base Excess Patient On Oxygen No O2 Delivery Device Vent Oxygen Flow Rate 40 Vent Mode A/c Vent Rate 12 Mechanical Rate No Result Required. PEEP 5.0 Pressure Support Vent 500 Sodium 146 H Potassium 2.9 L* Chloride 121 H Carbon Dioxide 19 L Anion Gap 6 L BUN 10.3 Creatinine 0.5 L Est GFR (CKD-EPI)AfAm 147.48 Est GFR (CKD-EPI)NonAf 127.25 Random Glucose 64 L Lactic Acid Calcium 5.6 L* Phosphorus 1.9 L Magnesium 1.2 L Total Bilirubin 0.2 AST 9 L ALT 10 L Alkaline Phosphatase 45 Ammonia 27.40 Creatine Kinase 43 Troponin I Total Protein 3.6 L Albumin 1.9 L TSH 3.31 Salicylates Opiates Screen Methadone Screen Acetaminophen Barbiturate Screen Phencyclidine Screen Ur Amphetamines Screen MDMA (Ecstasy) Screen Benzodiazepines Screen Cocaine Screen U Marijuana (THC) Screen Alcohol, Quantitative 03/16/20 03/16/20 08:42 08:42 WBC 11.2 H Corrected WBC (auto) RBC 3.84 L Hgb 12.5 Hct 37.4 MCV 97.5 H MCH 32.7 MCHC 33.5 RDW 14.2 Plt Count 342 MPV 8.1 Absolute Neuts (auto) Neutrophils % Lymphocytes % Monocytes % Eosinophils % Basophils % Nucleated RBC % Platelet Estimate Platelet Comment PT with INR INR PTT (Actin FS) Anticoagulation Therapy Puncture Site Patient Temperature ABG pH ABG pCO2 ABG pO2 ABG HCO3 ABG O2 Sat (Measured) ABG O2 Content ABG Base Excess Wilfred Test VBG pH POC VBG pCO2 POC VBG pO2 VBG HCO3 VBG O2 Sat ([place]) VBG Base Excess Patient On Oxygen O2 Delivery Device Oxygen Flow Rate Vent Mode Vent Rate Mechanical Rate PEEP Pressure Support Vent Sodium 142 Potassium 4.0 Chloride 108 H Carbon Dioxide 31 Anion Gap 3 L BUN 10.4 Creatinine 0.7 Est GFR (CKD-EPI)AfAm 128.43 Est GFR (CKD-EPI)NonAf 110.81 Random Glucose 83 Lactic Acid Calcium 8.3 L Phosphorus 2.8 Magnesium 2.0 Total Bilirubin 0.2 AST 11 L ALT 11 L Alkaline Phosphatase 71 Ammonia Creatine Kinase Troponin I Total Protein 5.5 L Albumin 2.9 L TSH Salicylates Opiates Screen Methadone Screen Acetaminophen Barbiturate Screen Phencyclidine Screen Ur Amphetamines Screen MDMA (Ecstasy) Screen Benzodiazepines Screen Cocaine Screen U Marijuana (THC) Screen Alcohol, Quantitative Active Medications Generic Name Dose Route Start Last Admin Trade Name Freq PRN Reason Stop Dose Admin Chlordiazepoxide HCl 50 mg 03/16/20 11:00 03/16/20 12:09 Librium - PO 03/17/20 23:01 50 mg [id number] JANEE Administration Chlordiazepoxide HCl 25 mg 03/18/20 05:00 Librium - PO 03/18/20 23:01 [id number] JANEE Chlordiazepoxide HCl 25 mg 03/16/20 10:39 Librium - PO 03/18/20 23:59 Q4H PRN WITHDRAWAL(CONT SUBST) Chlordiazepoxide HCl 10 mg 03/19/20 05:00 Librium - PO 03/19/20 23:01 [id number] JANEE Chlordiazepoxide HCl 10 mg 03/20/20 05:00 Librium - PO 03/20/20 17:01 Q12H JANEE Chlordiazepoxide HCl 10 mg 03/19/20 00:00 Librium - PO 03/20/20 00:00 Q4H PRN WITHDRAWAL(CONT SUBST) Chlordiazepoxide HCl 10 mg 03/21/20 05:00 Librium - PO 03/21/20 05:01 ONCE@0500 ONE Chlorhexidine Gluconate 1 applic 03/16/20 22:00 Hibiclens For Decolonization - TP HS JANEE Enoxaparin Sodium 40 mg 03/16/20 10:00 03/16/20 10:29 Lovenox - SQ 40 mg DAILY JANEE Administration Fentanyl 500 mcg in 100 mls @ 16.874 mls/hr 03/15/20 19:30 03/16/20 08:00 Sublimaze Ivpb IVPB 0 mcg/kg/hr TITR JANEE 0 mls/hr Titration 1 MCG/KG/HR Midazolam HCl 100 mg/ Sodium 100 mls @ 1 mls/hr 03/15/20 19:30 03/16/20 08:00 Chloride IVPB 0 mg/hr TITR JANEE 0 mls/hr Titration Protocol 1 MG/HR Propofol 1,000,000 mcg in 100 mls @ 2.531 mls/hr 03/15/20 20:00 03/16/20 08:00 Diprivan - IVPUSH 0 mcg/kg/min TITR JANEE 0 mls/hr Titration Protocol 5 MCG/KG/MIN Dextrose/Sodium Chloride 1,000 mls @ 75 mls/hr 03/16/20 08:45 03/16/20 10:31 D5-1/2ns - IV 75 mls/hr ASDIR JANEE Administration Levetiracetam 1,500 mg 03/16/20 22:00 Keppra Injection - IVPB BID JANEE Lorazepam 2 mg 03/16/20 13:19 Ativan Injection - IVPUSH Q6H PRN ANXIETY Mupirocin 1 applic 03/15/20 22:45 03/16/20 10:30 Bactroban Ointment (For Decolonization) - NS 03/20/20 22:44 1 applic BID JANEE Administration Pantoprazole Sodium 40 mg 03/15/20 22:38 03/16/20 10:29 Protonix Iv IVPUSH 40 mg DAILY JANEE Administration ASSESSMENT/PLAN: 49 YO M with PMH bipolar disorder, COPD, GERD, polysubstance use disorder (alcohol, cocaine) presented from [facility] after being found unresponsive. Likely 2/2 seizure vs substance overdose. Was intubated for airway protection. Patient was extubated today. Neuro - awake and agitated - neuro checks q2h - CT head negative for acute pathology - history of withdrawal seizures. - f/u prolactin -Neuro consult appreciated. EEG. Consider MRI if focal neuro deficit -keppra 1500 mg BID. Pulm #Acute Respiratory failure - extubated today -s/p aztreonam 1 gm IVPB for possible aspiration pneumonitis -CXR (03/16) no acute findings - previous CT chest (07/2019) hilar lymphadenopathy #COPD Cardio - continue cardiac monitoring in ICU for possible arrhythmia ID: - s/p 1 g Azactam in ED - monitor for aspiration PNA Psych #Bipolar disorder on seroquel #Polysubstance use disorder (Alcohol & Cocaine) -presented from [facility] for alcohol withdrawal -tox screen + for cocaine and benzos -librium protocol 50 mg PO Q6H (03/16) 25 mg PO Q6H (03/18) 25 mg PO Q4H PRN 10 mg PO Q6H (03/19) 10 mg PO Q12H (03/20) 10 mg PO once 03/21 -ativan 2 mg IV push Q6H PRN for agitation #H/o suicide attempt per -attempted to use pills in past -threatened to hang himself per GI #GERD: protonix 40 mg IV push daily - elevated ammonia 48.8. Downtrended to 27.4 Renal Endo - no acute issues FEN - D5 1/2 NS @75 ml/hr -monitor lytes - thiamine daily -soft diet DVT Ppx: Lovenox 40 mg sq daily DISPO maintain ICU ATTENDING PHYSICIAN STATEMENT I saw and evaluated the patient. I reviewed the resident's note and discussed the case with the resident. I agree with the resident's findings and plan as documented. SUBJECTIVE: OBJECTIVE: ASSESSMENT AND PLAN:
[2020-03-16] MEDS ORDERED: HALOPERIDOL LACTATE 5 MG/ML ONE (16:51)
[2020-03-16] MEDS ORDERED: HALOPERIDOL LACTATE 5 MG/ML IM ONE (17:08)
--- NOTE | 2020-03-16 17:18 | PN ---
Progress Note (short form) - Note Progress Note: Called to pt's bedside for acute agitation. Pt had been removed from wrist restraints but still in chest vest as he was now extubated and resting comfortably previously At this time pt was noted to have removed one of his own IVs and was shouting at staff and attempting to get out of bed stating that he wants to go home and does not need to be here. A condition 10 was called. Pt is oriented to self only Pt was allowed to speak with on phone, who agreed that pt was not at his baseline Pt continued to be verbally aggressive and attempting to leave the bed Qtc 450s was noted, pt was given Haldol 5mg IM for agitation Del Castillo was removed as pt is now extubated and no longer requires strict IOs and will be able to use urinal/diaper
[2020-03-16] MEDS: KCL 10 MEQ IVPB 10 MEQ/100 ML INFUS.BAG IVPB SCH (18:02)
[2020-03-16] MEDS ORDERED: LORazepam 2 MG/ML SDV VIAL IM PRN (19:15)
[2020-03-16] MEDS ORDERED: QUEtiapine FUMARATE 300 MG TABLET PO SCH ×2 (20:00→22:00)
--- NOTE | 2020-03-16 20:15 | CON.PSY ---
Psychiatry Consult Chief Complaint: client became agitated today, was give stat haldol 5mg im. Client ex tubated. Was admitted from [facility] after being unresponsive. Symptoms: reports: Diurnal Mood Changes, Irritability, Impulsivity - Previous Substance Abuse Treatment Outpatient: Less than 6 mos ago Inpatient: Within the last 12 months ([facility]. for AA) - Reason for Previous Treatment Reason for Previous Treatment: Psychotic Episode, Alcohol Abuse - Family History Family History: Unable to Obtain - Current Medications Current Medications: Active Medications Chlordiazepoxide HCl (Librium -) 50 mg PO [id number] [facility] Stop: 03/17/20 23:01 Last Admin: 03/16/20 17:27 Dose: 50 mg Documented by: Chlordiazepoxide HCl (Librium -) 25 mg PO [id number] JANEE Stop: 03/18/20 23:01 Chlordiazepoxide HCl (Librium -) 25 mg PO Q4H PRN PRN Reason: WITHDRAWAL(CONT SUBST) Stop: 03/18/20 23:59 Chlordiazepoxide HCl (Librium -) 10 mg PO [id number] [facility] Stop: 03/19/20 23:01 Chlordiazepoxide HCl (Librium -) 10 mg PO Q12H JANEE Stop: 03/20/20 17:01 Chlordiazepoxide HCl (Librium -) 10 mg PO Q4H PRN PRN Reason: WITHDRAWAL(CONT SUBST) Stop: 03/20/20 00:00 Chlordiazepoxide HCl (Librium -) 10 mg PO ONCE@0500 ONE Stop: 03/21/20 05:01 Chlorhexidine Gluconate (Hibiclens For Decolonization -) 1 applic TP HS [facility] Enoxaparin Sodium (Lovenox -) 40 mg SQ DAILY [facility] Last Admin: 03/16/20 10:29 Dose: 40 mg Documented by: Dextrose/Sodium Chloride (D5-1/2ns -) 1,000 mls @ 75 mls/hr IV ASDIR [facility] Last Admin: 03/16/20 10:31 Dose: 75 mls/hr Documented by: Levetiracetam (Keppra -) 1,500 mg PO BID [facility] Lorazepam (Ativan Injection -) 2 mg IVPUSH Q6H PRN PRN Reason: ANXIETY Lorazepam (Ativan Injection -) 2 mg IM Q6H PRN PRN Reason: AGITATION Stop: 03/17/20 19:14 Mupirocin (Bactroban Ointment (For Decolonization) -) 1 applic NS BID [facility] Stop: 03/20/20 22:44 Last Admin: 03/16/20 10:30 Dose: 1 applic Documented by: Pantoprazole Sodium (Protonix Iv) 40 mg IVPUSH DAILY [facility] Last Admin: 03/16/20 10:29 Dose: 40 mg Documented by: Quetiapine Fumarate (Seroquel -) 300 mg PO 1999 [facility] - Allergies Allergies: Allergies Allergy/AdvReac Type Severity Reaction Status Date / Time carbamazepine [From Tegretol] Allergy Intermediate Hives Verified 03/14/20 10:28 Penicillins AdvReac Unknown Nausea Verified 03/14/20 10:28 - Current Living Status Usual Living Arrangement: Other - Current Mental Status Evaluation Appearance: Disheveled Attitude: Suspicious, Uncooperative - Affect Affect: Constrictive - Mood Mood: Irritable - Speech/Language Expressive: Perseverating - Psychomotor Activity Psychomotor Activity: Slowed - Thought Process Thought Process: Flight of Ideas - Thought Content Hallucinations: Absent Delusions: Absent - Self Perception Self Perception: Derealization - Cognition Attention: Diminished Orientation: Person Memory, Immediate Recall: Impaired Memory, Short Term: 1/3 - Concentration Serial Sevens Intact: No Simple Calculations Intact: No - Abstraction Proverb Interpretation: [place] - Insight Insight: Impaired - Impulse Control Impulse Control: Moderately Impaired - Suicidal Ideation Suicidal Ideation: No - Homicidal Ideation Homicidal Ideation: No Problem List - Problems (1) Bipolar 1 disorder Assessment/Plan: continue seroquel 300mg at night. May add seroquel 50mg in the am add vistaril 50mg po prn for anxiety. if severe agitated haldol 5mg im, with benadrykl 50mg. Spke with [employer]/MD and MANE Zuniga on unit also. Problems reviewed: Yes Code(s): F31.9 - BIPOLAR DISORDER, UNSPECIFIED
[2020-03-16] MEDS ORDERED: QUEtiapine FUMARATE 100 MG TABLET (FP) ONE (20:59)
[2020-03-16] MEDS: levETIRAcetam 500 MG TABLET (FP) PO SCH (21:00)
[2020-03-16] MEDS ORDERED: PT OWN MED DRAWER 7, Y5N ONE (21:14)
[2020-03-16] MEDS ORDERED: levETIRAcetam 500 MG/5 ML INJECTION VIAL IVPB SCH (22:00)
[2020-03-16] MEDS ORDERED: CHLORHEXIDINE GLUCONATE 4% CLEANSER FOR DECOLONIZATION TP SCH (22:00)
[2020-03-17] MEDS: chlordiazePOXIDE HCL 25 MG CAPSULE PO SCH ×5 (05:07→22:43)
--- NOTE | 2020-03-17 11:25 | HOSP ---
Physical Examination Vital Signs: Vital Signs Temperature 97.5 F L 03/16/20 14:00 Pulse Rate 100 H 03/17/20 08:00 Respiratory Rate 14 03/17/20 09:00 Blood Pressure 124/84 03/17/20 06:00 O2 Sat by Pulse Oximetry (%) 94 L 03/17/20 09:00 Psychiatric: Yes: Agitated (patient refused physical exam) Labs: CBC, BMP 03/16/20 08:42 03/16/20 08:42 Hospitalist Encounter Assessment: 49 YO M with PMH bipolar disorder, COPD, GERD, polysubstance use disorder (alcohol, cocaine) presented from [facility] after being found unresponsive. Per EMS, his pupils were found to be dilated but reactive. EMS was gave narcan, but the patient remained unresponsive. Upon arrival to the ED the was still unresponsive, so he was intubated for airway protection. He was given a dose of aztreonam 1 gm IVPB in the ED for possible aspiration pneumonitis. CXR (03/16) showed no acute findings. Toxicology was positive for benzodiazepine and cocaine. CT head was negative for acute pathology. Admitted to ICU for monitoring. Patient was extubated, and has been saturating well on room air. However, patien t remains agitated and given Ativan PRN. Patient is on librium protocol for alcohol withdrawal. Neurology recommended keppra 1500 mg BID for seizures and to consider MRI if the patient develops focal neuro deficits. With an elevated prolactin, it's likely that the patient was unresponsive due to seizures. Patient is on his home dose seroquel for bipolar disorder. Per his , patient has attempted suicide in the past with pills & also threatened to hang himself. Patient is stable to transfer to med surg
--- NOTE | 2020-03-17 11:49 | PN ---
Progress Note (short form) - Note Progress Note: cc Unresponsive HPI 49 year old male history of polysubstance abuse was in drug rehab and found unresponsive, did not responded to narcan. Patient also have history of GERD,COPD. Paitent was intubated for airway protection and later extubated on morning of ocotober 8. Patient has no fever and remain delirius during this time. - no seizure, he has been confused and agitated at times, no new symptoms, and trying to get out of bed, NEUROLOGICAL EXAMINATION confused and restless neck is supple afebrile vss eomi, pupils reactive no face asymmetry moving all extremity ct head unremarkable Assessment 49 year old male history of polysubstance abuse history of GERD,COPD. He was found unresponsive, did not responded to narcan, ct neagative, unlikley to be stroke or meningitis. Suspect ? seizure Plan: continue keppra for now - eeg pending - consider mri of brain if remains to have any focal neuro deficit once mental status improved - neuro check - psych consult apprecaited - 35 cc time Thanking you so much Srinivasan Bernard MD
--- NOTE | 2020-03-17 11:51 | PN ---
Teaching Attending Note Name of Resident: Skyler Ni ATTENDING PHYSICIAN STATEMENT I saw and evaluated the patient. I reviewed the resident's note and discussed the case with the resident. I agree with the resident's findings and plan as documented. SUBJECTIVE: Patient seen and examined in the ICU. Sleepy as he received BZ this AM. No acute events overnight. Intake & Output 03/14/20 03/15/20 03/16/20 03/17/20 23:59 23:59 23:59 23:59 Intake Total 1000 320 Output Total 3500 900 Balance -2500 -580 Weight 186 lb Last Vital Signs Temp Pulse Resp BP Pulse Ox 97.5 F L 100 H 14 124/84 94 L 03/16/20 14:00 03/17/20 08:00 03/17/20 09:00 03/17/20 06:00 03/17/20 09:00 Active Medications Chlordiazepoxide HCl (Librium -) 50 mg PO [id number] [facility] Stop: 03/17/20 23:01 Last Admin: 03/17/20 06:12 Dose: Not Given Documented by: Chlordiazepoxide HCl (Librium -) 25 mg PO [id number] [facility] Stop: 03/18/20 23:01 Chlordiazepoxide HCl (Librium -) 25 mg PO Q4H PRN PRN Reason: WITHDRAWAL(CONT SUBST) Stop: 03/18/20 23:59 Chlordiazepoxide HCl (Librium -) 10 mg PO Q2H-RXE JANEE Stop: 03/19/20 23:01 Chlordiazepoxide HCl (Librium -) 10 mg PO Q12H JANEE Stop: 03/20/20 17:01 Chlordiazepoxide HCl (Librium -) 10 mg PO Q4H PRN PRN Reason: WITHDRAWAL(CONT SUBST) Stop: 03/20/20 00:00 Chlordiazepoxide HCl (Librium -) 10 mg PO ONCE@0500 ONE Stop: 03/21/20 05:01 Chlorhexidine Gluconate (Hibiclens For Decolonization -) 1 applic TP HS [facility] Last Admin: 03/16/20 22:36 Dose: 1 applic Documented by: Enoxaparin Sodium (Lovenox -) 40 mg SQ DAILY [facility] Last Admin: 03/16/20 10:29 Dose: 40 mg Documented by: Dextrose/Sodium Chloride (D5-1/2ns -) 1,000 mls @ 75 mls/hr IV ASDIR [facility] Last Admin: 03/16/20 10:31 Dose: 75 mls/hr Documented by: Levetiracetam (Keppra -) 1,500 mg PO BID [facility] Last Admin: 03/16/20 21:00 Dose: 1,500 mg Documented by: Lorazepam (Ativan Injection -) 2 mg IVPUSH Q6H PRN PRN Reason: ANXIETY Lorazepam (Ativan Injection -) 2 mg IM Q6H PRN PRN Reason: AGITATION Stop: 03/17/20 19:14 Last Admin: 03/17/20 05:18 Dose: 2 mg Documented by: Mupirocin (Bactroban Ointment (For Decolonization) -) 1 applic NS BID [facility] Stop: 03/20/20 22:44 Last Admin: 03/16/20 22:36 Dose: 1 applic Documented by: Pantoprazole Sodium (Protonix Iv) 40 mg IVPUSH DAILY [facility] Last Admin: 03/16/20 10:29 Dose: 40 mg Documented by: Quetiapine Fumarate (Seroquel -) 300 mg PO 1999 [facility] Last Admin: 03/16/20 21:06 Dose: 300 mg Documented by: GENERAL: Extubated, Sleepy HEAD: Normal with no signs of trauma. EYES: No scleral icterus ENT: ET in place NECK: no JVD LUNGS: BL crackles HEART: RRR, s1, s2 ABDOMEN: Soft, non distended. Normal bowel sounds MSK: warm, well-perfused. No peripheral edema in all extremities NEUROLOGICAL: Sleepy, moving all extremities SKIN: Multiple tattoos, mild maculopapular rash on upper chest area Intake & Output 03/14/20 03/15/20 03/16/20 03/17/20 23:59 23:59 23:59 23:59 Intake Total 1000 320 Output Total 3500 900 Balance -2500 -580 Weight 186 lb ASSESSMENT/PLAN: Acute Respiratory Failure R/O Aspiration PNA Seizure GERD COPD Alcohol abuse Substance abuse (cocaine) History of withdrawal seizures Hilar Lymphadenopathy Supplemental O2 as needed Stop Empiric ABX Strict I & O Seizure precautions Monitor for withdrawal VTE prophylaxis GI prophylaxis Will need CT Chest follow up as an outpatient Floor Dr Lynne
--- NOTE | 2020-03-17 12:25 | HOSP ---
Subjective - Review of Symptoms Events since last encounter: Medicine Service acceptance note: Subjective: Patient seen and examined. He is agitated, alert only to self. Does not believe he is in the hospital. He is refusing all medications, including IV access. Physical Examination Vital Signs: Vital Signs Temperature 97.5 F L 03/16/20 14:00 Pulse Rate 100 H 03/17/20 08:00 Respiratory Rate 14 03/17/20 09:00 Blood Pressure 124/84 03/17/20 06:00 O2 Sat by Pulse Oximetry (%) 94 L 03/17/20 09:00 Findings/Remarks: GENERAL: The patient is awake, confused, agitated. HEAD: Normocephalic, atraumatic. EYES: PERRL, extraocular movements intact, sclera anicteric. ENT: Dry mucous membranes. NECK: Supple without lymphadenopathy. LUNGS: Breath sounds equal, clear to auscultation bilaterally. No accessory muscle use. HEART: Regular rate and rhythm. S1, S2 without murmur, rub or gallop. ABDOMEN: Soft, nondistended, nontender to light and deep palpation x4 quadrants. Normoactive bowel sounds x4 quadrants. EXTREMITIES: 2+ radial, dorsalis pedis pulses bilaterally. Warm, well-perfused. No lower extremity edema bilaterally. NEUROLOGICAL: Cranial nerves II through XII grossly intact. Normal speech. No gross focal deficits. PSYCH: Normal mood, normal affect upon my encounter. SKIN: Warm, dry. Labs: CBC, BMP 03/16/20 08:42 03/16/20 08:42 Hospitalist Encounter Assessment: Patient is a 49 year old male with history of alcohol use disorder (withdrawal seizures), cocaine use disorder, COPD, gastro-esophageal reflux, bipolar disorder, major depressive disorder, presented from [facility] after being found unresponsive lying in bed during morning rounds. There was ?seizure activity, and patient was intubated in the ED (03/15) for airway protection. Patient extubated (), however remains confused and agitated. Encephalopathy -Likely toxic metabolic encephalopathy secondary to alcohol excess/ withdrawal. Further complicated by ?seizure. -Librium protocol, Ativan IM 1mg P6 hours for agitation. Addiction medicine consult (Dr. Paniagua) requested -CT head does not reveal acute infarct, or hemorrhage. -Urine toxicology positive for benzodiazepines, cocaine. -Ammonia 27 -Telemetry does not reveal any arrhythmia (however patient currently refusing telemetry monitoring) -Neurology recommendations (Dr. Bernard) appreciated. Initiated on Keppra. No further seizure activity reported. -Psychiatry recommendations (Dr. Rodriguez) appreciated. Continue Seroquel, consider Haldol, Benadryl for acute severe agitation -Currently will not tolerate MRI, given clinical condition. -Fall precautions -Aspiration precautions -Physical therapy evaluation Acute respiratory failure -Likely secondary to above. Currently, patient is phonating, protecting his airway. Saturating well on room air. -Chest radiograph -Maintain oxygen saturation greater than 90% -Noted history of COPD. Currently does not appear in exacerbation. -Albuterol nebulizer Q4 hours PRN for shortness of breath Leukocytosis -Potentially reactive, has remained afebrile. Chest radiograph from 03/16 does nor reveal acute infiltrate. -As patient currently refusing IV access, will monitor fever curve, will attempt to obtain repeat labs. History of GERD -Continue Pantoprazole FEN -No IV fluids indicated -Follow BMP -Soft diet Prophylaxis -Lovenox 40mg subq daily Disposition Patient accepted to Medicine Service Transfer to medical surgical floor Visit type - Emergency Visit Emergency Visit: Yes ED Registration Date: 03/15/20 Care time: The patient presented to the Emergency Department on the above date and was hospitalized for further evaluation of their emergent condition. - New Patient This patient is new to me today: Yes Date on this admission: 03/17/20 - Critical Care Critical Care patient: No
--- NOTE | 2020-03-17 13:17 | PN ---
Physical Exam: SUBJECTIVE: Patient seen and examined. Removed his IVs and refused new IV. Took off BP cuff and Pulse ox. Was agitated in the AM during any attempts for physical exam. Now resting in bed comfortably. OBJECTIVE: Vital Signs Period Temp Pulse Resp BP Sys/Prince Pulse Ox Last 24 Hr 97.5 F 85-106 14-20 106-128/58-84 94-100 GENERAL: The patient is awake and agitated HEAD: Normal with no signs of trauma. REFUSED physical exam Laboratory Results - last 24 hr 03/16/20 00:00 Prolactin 22.8 H Active Medications Generic Name Dose Route Start Last Admin Trade Name Freq PRN Reason Stop Dose Admin Chlordiazepoxide HCl 50 mg 03/16/20 11:00 03/17/20 06:12 Librium - PO 03/17/20 23:01 Not Given [id number] JANEE Chlordiazepoxide HCl 25 mg 03/18/20 05:00 Librium - PO 03/18/20 23:01 [id number] JANEE Chlordiazepoxide HCl 25 mg 03/16/20 10:39 Librium - PO 03/18/20 23:59 Q4H PRN WITHDRAWAL(CONT SUBST) Chlordiazepoxide HCl 10 mg 03/19/20 05:00 Librium - PO 03/19/20 23:01 [id number] JANEE Chlordiazepoxide HCl 10 mg 03/20/20 05:00 Librium - PO 03/20/20 17:01 Q12H JANEE Chlordiazepoxide HCl 10 mg 03/19/20 00:00 Librium - PO 03/20/20 00:00 Q4H PRN WITHDRAWAL(CONT SUBST) Chlordiazepoxide HCl 10 mg 03/21/20 05:00 Librium - PO 03/21/20 05:01 ONCE@0500 ONE Chlorhexidine Gluconate 1 applic 03/16/20 22:00 03/16/20 22:36 Hibiclens For Decolonization - TP 1 applic HS JANEE Administration Enoxaparin Sodium 40 mg 03/16/20 10:00 03/16/20 10:29 Lovenox - SQ 40 mg DAILY JANEE Administration Dextrose/Sodium Chloride 1,000 mls @ 75 mls/hr 03/16/20 08:45 03/16/20 10:31 D5-1/2ns - IV 75 mls/hr ASDIR JANEE Administration Levetiracetam 1,500 mg 03/16/20 22:00 03/16/20 21:00 Keppra - PO 1,500 mg BID JANEE Administration Lorazepam 2 mg 03/16/20 13:19 Ativan Injection - IVPUSH Q6H PRN ANXIETY Lorazepam 2 mg 03/16/20 19:15 03/17/20 05:18 Ativan Injection - IM 03/17/20 19:14 2 mg Q6H PRN Administration AGITATION Mupirocin 1 applic 03/15/20 22:45 03/16/20 22:36 Bactroban Ointment (For Decolonization) - NS 03/20/20 22:44 1 applic BID JANEE Administration Pantoprazole Sodium 40 mg 03/15/20 22:38 03/16/20 10:29 Protonix Iv IVPUSH 40 mg DAILY JANEE Administration Quetiapine Fumarate 300 mg 03/16/20 20:00 03/16/20 21:06 Seroquel - PO 300 mg 2000 JANEE Administration ASSESSMENT/PLAN: 49 YO M with PMH bipolar disorder, COPD, GERD, polysubstance use disorder (alcohol, cocaine) presented from [facility] after being found unresponsive. Likely 2/2 seizure vs substance overdose. Was intubated for airway protection. S/p extubation. Neuro - awake and agitated - CT head negative for acute pathology - history of withdrawal seizures. - prolactin ELEVATED 22.8. Unresponsiveness likely 2/2 seizures -Neuro consult appreciated. EEG. Consider MRI if focal neuro deficit -keppra 1500 mg BID. Pulm #Acute Respiratory failure - s/p extubation -s/p aztreonam 1 gm IVPB for possible aspiration pneumonitis -CXR (03/16) no acute findings - previous CT chest (07/2019) hilar lymphadenopathy #COPD Cardio - continue cardiac monitoring in ICU for possible arrhythmia ID: - s/p 1 g Azactam in ED - monitor for aspiration PNA -blood culture (03/15) X2 negative -WBCs 11.2, but remains afebrile Psych #Bipolar disorder on seroquel #Polysubstance use disorder (Alcohol & Cocaine) -presented from [facility] for alcohol withdrawal -tox screen + for cocaine and benzos -librium protocol 50 mg PO Q6H (03/16) 25 mg PO Q6H (03/18) 25 mg PO Q4H PRN 10 mg PO Q6H (03/19) 10 mg PO Q12H (03/20) 10 mg PO once 03/21 -ativan 2 mg IV push Q6H PRN for agitation -f/u detox consult ([facility]) #H/o suicide attempt per -attempted to use pills in past. threatened to hang himself per GI #GERD: protonix 40 mg IV push daily Renal BUN/Cr 10.4/0.7 Endo - no acute issues FEN - D5 1/2 NS @75 ml/hr -monitor lytes - thiamine daily -soft diet DVT Ppx: Lovenox 40 mg sq daily DISPO stable for transfer to med surg ATTENDING PHYSICIAN STATEMENT I saw and evaluated the patient. I reviewed the resident's note and discussed the case with the resident. I agree with the resident's findings and plan as documented. SUBJECTIVE: OBJECTIVE: ASSESSMENT AND PLAN:
[2020-03-17] MEDS: levETIRAcetam 500 MG TABLET (FP) PO SCH ×2 (13:33→22:43)
[2020-03-17] MEDS: DEXTROSE 5%-0.45% SALINE 1,000 ML IV SCH ×2 (13:34→21:30)
[2020-03-17] MEDS: ENOXAPARIN NA (PORCINE) 40 MG/0.4 ML DISP.SYRIN SQ SCH ×2 (13:34→13:49)
[2020-03-17] MEDS: PANTOPRAZOLE SODIUM 40 MG VIAL IVPUSH SCH (13:34)
[2020-03-17] MEDS: MUPIROCIN 2% TOPICAL OINTMENT FOR DECOLONIZATION NS SCH (13:34)
--- NOTE | 2020-03-17 17:21 | PN ---
Mental Health Exam - Mental Status Exam Alert and Oriented to: Place (disorientated in person, time and place. ) Cognitive Function: Impaired Patient Appearance: Disheveled Mood: Withdrawn Affect: Flat, Blunted, Constricted Patient Behavior: Distractible, Impulsive Speech Pattern: Delayed Voice Loudness: Mildly Soft/Quiet Thought Process: Circumstantial, Tangential, Disoriented Thought Disorder: Paranoid Ideation Hallucinations: Denies Suicidal Ideation: Denies Homicidal Ideation: None Insight/Judgement: Impaired Sleep: Fair Appetite: Poor Muscle strength/Tone: Mild Hypotonicity Gait/Station: Deferred Additional Comments: client is confised, disorientated. Stated now he will have medical treatment. He has limited capacity to understand due to current mental status. Case discussed with resident covering today, client is incompetant to make own descisions for life saving treatment necessary in the ICU.
[2020-03-17] MEDS ORDERED: ACETAMINOPHEN 325 MG TABLET (FP) PO PRN (19:10)
[2020-03-17] MEDS ORDERED: chlordiazePOXIDE HCL 25 MG CAPSULE PO PRN (19:34)
[2020-03-17] MEDS ORDERED: QUEtiapine FUMARATE 300 MG TABLET PO SCH (20:00)
[2020-03-17] MEDS ORDERED: PT OWN MED DRAWER 7, Y5N ONE (20:04)
[2020-03-18] MEDS: chlordiazePOXIDE HCL 25 MG CAPSULE PO SCH ×3 (04:48→10:40)
[2020-03-18] MEDS ORDERED: chlordiazePOXIDE HCL 25 MG CAPSULE PO SCH (05:00)
[2020-03-18] MEDS ORDERED: MULTIVITAMINS (DAILY MVI) TABLET (FP) PO SCH (10:00)
[2020-03-18] MEDS ORDERED: PANTOPRAZOLE 40 MG TABLET PO SCH (10:00)
[2020-03-18] MEDS ORDERED: ENOXAPARIN NA (PORCINE) 40 MG/0.4 ML DISP.SYRIN SQ SCH (10:00)
[2020-03-18] MEDS: levETIRAcetam 500 MG TABLET (FP) PO SCH (10:38)
[2020-03-18] MEDS ORDERED: NICOTINE 21 MG/24 HOURS TOPICAL PATCH TD SCH (11:00)
[2020-03-18] MEDS: DEXTROSE 5%-0.45% SALINE 1,000 ML IV SCH (11:53)
[2020-03-18 11:59] LABS: HEMATOCRIT 39.3 % (35.4-49); HEMOGLOBIN 13.8 GM/dL (11.7-16.9); MCH 33.8 pg (25.7-33.7); MEAN CELL VOLUME 96.5 fl (80-96); MEAN PLT VOLUME 8.1 fl (7.5-11.1); PLATELET COUNT 389 K/MM3 (134-434); RBC 4.07 M/mm3 (4.00-5.60); WHITE BLOOD COUNT 7.2 K/mm3 (4.0-10.0)
[2020-03-18 12:30] LABS: BILIRUBIN,TOTAL 0.3 mg/dL (0.2-1); BLOOD UREA NITROGEN 10.8 mg/dL (7-18); CALCIUM 8.8 mg/dL (8.5-10.1); CREATININE 0.6 mg/dL (0.55-1.3); MAGNESIUM 2.1 mg/dL (1.8-2.4); PHOSPHOROUS 2.9 mg/dL (2.5-4.9); POTASSIUM 4.1 mmol/L (3.5-5.1)
--- NOTE | 2020-03-18 13:41 | PN ---
Progress Note (short form) - Note Progress Note: Comfortable. NAD on RA. No acute events overnight. Intake & Output 03/15/20 03/16/20 03/17/20 03/18/20 23:59 23:59 23:59 23:59 Intake Total 1000 1140 1050 Output Total 3500 1740 750 Balance -2500 -600 300 Weight 186 lb 186 lb Last Vital Signs Temp Pulse Resp BP Pulse Ox 98.5 F 83 14 99/67 93 L 03/18/20 06:16 03/18/20 06:16 03/18/20 06:16 03/18/20 06:16 03/18/20 06:16 Active Medications Acetaminophen (Tylenol -) 650 mg PO Q6H PRN PRN Reason: Fever Or Pain Last Admin: 03/18/20 13:29 Dose: 650 mg Documented by: Chlordiazepoxide HCl (Librium -) 10 mg PO ONCE@0500 ONE Stop: 03/21/20 05:01 Chlordiazepoxide HCl (Librium -) 25 mg PO Q4H PRN PRN Reason: WITHDRAWAL(CONT SUBST) Stop: 03/18/20 23:59 Last Admin: 03/18/20 00:26 Dose: 25 mg Documented by: Chlordiazepoxide HCl (Librium -) 10 mg PO Q4H PRN PRN Reason: WITHDRAWAL(CONT SUBST) Stop: 03/20/20 00:00 Chlordiazepoxide HCl (Librium -) 25 mg PO [id number] [facility] Stop: 03/18/20 23:01 Last Admin: 03/18/20 10:40 Dose: 25 mg Documented by: Chlordiazepoxide HCl (Librium -) 10 mg PO [id number] [facility] Stop: 03/19/20 23:01 Chlordiazepoxide HCl (Librium -) 10 mg PO Q12H [facility] Stop: 03/20/20 17:01 Enoxaparin Sodium (Lovenox -) 40 mg SQ DAILY [facility] Last Admin: 03/18/20 10:38 Dose: 40 mg Documented by: Dextrose/Sodium Chloride (D5-1/2ns -) 1,000 mls @ 75 mls/hr IV ASDIR [facility] Last Admin: 03/18/20 11:53 Dose: 75 mls/hr Documented by: Levetiracetam (Keppra -) 1,500 mg PO BID [facility] Last Admin: 03/18/20 10:38 Dose: 1,500 mg Documented by: Multivitamins/Minerals/Vitamin C (Tab-A-Vit -) 1 tab PO DAILY [facility] Last Admin: 03/18/20 10:38 Dose: 1 tab Documented by: Nicotine (Nicoderm Patch -) 21 mg TD DAILY [facility] Last Admin: 03/18/20 11:31 Dose: 21 mg Documented by: Pantoprazole Sodium (Protonix -) 40 mg PO DAILY [facility] Last Admin: 03/18/20 10:38 Dose: 40 mg Documented by: Quetiapine Fumarate (Seroquel -) 300 mg PO 1999 [facility] Last Admin: 03/17/20 20:07 Dose: 300 mg Documented by: GENERAL: NAD HEAD: Normal with no signs of trauma. EYES: No scleral icterus ENT: ET in place NECK: no JVD LUNGS: Clear HEART: RRR, s1, s2 ABDOMEN: Soft, non distended. Normal bowel sounds MSK: warm, well-perfused. No peripheral edema in all extremities NEUROLOGICAL: Non-focal SKIN: Multiple tattoos, mild maculopapular rash on upper chest area Laboratory Results - last 24 hr 03/18/20 03/18/20 11:24 11:24 WBC 7.2 RBC 4.07 Hgb 13.8 Hct 39.3 MCV 96.5 H MCH 33.8 H MCHC 35.0 RDW 14.0 Plt Count 389 MPV 8.1 Sodium 141 Potassium 4.1 Chloride 109 H Carbon Dioxide 30 Anion Gap 2 L BUN 10.8 Creatinine 0.6 Est GFR (CKD-EPI)AfAm 136.83 Est GFR (CKD-EPI)NonAf 118.06 Random Glucose 110 H Calcium 8.8 Phosphorus 2.9 Magnesium 2.1 Total Bilirubin 0.3 AST 12 L ALT 13 Alkaline Phosphatase 76 Total Protein 6.0 L Albumin 3.0 L ASSESSMENT/PLAN: Acute Respiratory Failure Do not suspect Aspiration PNA Seizure GERD COPD Alcohol abuse Substance abuse (cocaine) History of withdrawal seizures Hilar Lymphadenopathy Seizure precautions Will need CT Chest follow up as an outpatient for hilar adenopathy No smoking DC planning Dr Lynne
--- NOTE | 2020-03-18 14:02 | DS ---
Physical Exam: SUBJECTIVE: Patient seen and examined OBJECTIVE: Vital Signs Period Temp Pulse Resp BP Sys/Prince Pulse Ox Last 24 Hr 97.8 F-98.5 F 83-95 14-15 99-99/65-67 93-93 PHYSICAL EXAM GENERAL: The patient is awake, alert, and fully oriented, in no acute distress. HEAD: Normal with no signs of trauma. EYES: PERRL, extraocular movements intact, sclera anicteric, conjunctiva clear. ENT: Ears normal, nares patent, oropharynx clear without exudates, moist mucous membranes. NECK: Trachea midline, full range of motion, supple. LUNGS: Breath sounds equal, clear to auscultation bilaterally, no wheezes, no crackles, no accessory muscle use. HEART: Regular rate and rhythm, S1, S2 without murmur, rub or gallop. ABDOMEN: Soft, nontender, nondistended, normoactive bowel sounds, no guarding, no rebound, no hepatosplenomegaly, no masses. EXTREMITIES: 2+ pulses, warm, well-perfused, no edema. NEUROLOGICAL: Cranial nerves II through XII grossly intact. Normal speech, gait not observed. PSYCH: Normal mood, normal affect. SKIN: Warm, dry, normal turgor, no rashes or lesions noted. LABS Laboratory Results - last 24 hr 03/18/20 03/18/20 11:24 11:24 WBC 7.2 RBC 4.07 Hgb 13.8 Hct 39.3 MCV 96.5 H MCH 33.8 H MCHC 35.0 RDW 14.0 Plt Count 389 MPV 8.1 Sodium 141 Potassium 4.1 Chloride 109 H Carbon Dioxide 30 Anion Gap 2 L BUN 10.8 Creatinine 0.6 Est GFR (CKD-EPI)AfAm 136.83 Est GFR (CKD-EPI)NonAf 118.06 Random Glucose 110 H Calcium 8.8 Phosphorus 2.9 Magnesium 2.1 Total Bilirubin 0.3 AST 12 L ALT 13 Alkaline Phosphatase 76 Total Protein 6.0 L Albumin 3.0 L HOSPITAL COURSE: Date of Admission:03/15/20 Date of Discharge: 03/18/20 Minutes to complete discharge: 36 Discharge Summary Problems reviewed: Yes Reason For Visit: DEPENDENT ON VENTILATOR Current Active Problems Alcohol use disorder (Acute) Bipolar 1 disorder (Acute) Cocaine dependence (Acute) Dependent on ventilator (Acute) Unresponsive state (Acute) Condition: Improved - Instructions Diet, Activity, Other Instructions: You came to the hospital from [facility] where you were competing your detoxification for alcohol because you had a possible seizure and were unresponsive. You were intubated and ventilated to help you breathe, but eventually recovered and this was removed. You received medications to help prevent seizures, and help with your withdrawal symptoms. You will be returning to [facility] to complete your detoxification. Medications Please CONTINUE your Keppra 1500mg BID while at [facility]. Once you leave there, you can stop taking this medication and follow up with your neurologist, Dr. Bernard, to discuss if it will need to be continued. Please resume all other home medications as prescribed. Follow Ups 1. Primary care physician, [facility], within 1 week for our overall health care management. 2. Neurologist, Dr. Bernard, within 1 weeks for evaluation of your seizures. 3. Paper Machine Operator, Dr. Hannah, within 2 weeks. 4. Psychiatrist, Dr. Brandon, within 2 weeks. 5. technical specialist cytogenetics, Dr. Paniagua, within 1 week for your alcohol dependence. If you have any new, worsening or changing symptoms please return to the ED or call 911. Referrals: [facility] [place] [Provider Group] - 1 Week Srinivasan Bernard MD [Staff Physician] - 1 Week Sofia Prajapati MD [Staff Physician] - 2 Weeks Simone Paniagua DO [Staff Physician] - 1 Week Jean Claude Hannah MD, MD [Staff Physician] - 2 Weeks Disposition: I.P. ALCOHOL/SUBS ABUSE REHAB - Home Medications Comprehensive Discharge Medication List: Ambulatory Orders Gabapentin 800 mg PO TID 07/20/19 Quetiapine Fumarate [Seroquel -] 300 mg PO HS 07/20/19 Albuterol Sulfate Inhaler - [Ventolin HFA Inhaler -] 2 inh PO Q4H PRN #1 inhaler 11/18/19 Budesonide/Formeterol Fumarate [SYMBICORT 80/4.5mcg -] 1 inh PO BID #1 inhaler 11/18/19 levETIRAcetam [Keppra -] 1,500 mg PO BID tablet 03/18/20 ATTENDING PHYSICIAN STATEMENT I saw and evaluated the patient. I reviewed the resident's note and discussed the case with the resident. I agree with the resident's findings and plan as documented. SUBJECTIVE: OBJECTIVE: ASSESSMENT AND PLAN:
--- NOTE | 2020-03-18 14:19 | PN ---
Teaching Attending Note Name of Resident: Raymon Ramos ATTENDING PHYSICIAN STATEMENT I saw and evaluated the patient. I reviewed the resident's note and discussed the case with the resident. I agree with the resident's findings and plan as documented. SUBJECTIVE: Feeling okay, no complaints. No nausea/vomiting/diaphoresis/seizures. OBJECTIVE: Afebrile, Hemodynamically Stable. Last Vital Signs Temp Pulse Resp BP Pulse Ox 98.5 F 83 14 99/67 93 L 03/18/20 06:16 03/18/20 06:16 03/18/20 06:16 03/18/20 06:16 03/18/20 06:16 HEENT - Atraumatic, Normocephalic. Heart - S1, S2, RRR Lungs - clear to auscultation Abdomen - Soft, non-tender. Bowel Sounds normal. Extremities - no edema, no calf tenderness. Neuro - AAO x 2-3. Tone/Power normal. Mild tremor. Laboratory Results - last 24 hr 03/18/20 03/18/20 11:24 11:24 WBC 7.2 RBC 4.07 Hgb 13.8 Hct 39.3 MCV 96.5 H MCH 33.8 H MCHC 35.0 RDW 14.0 Plt Count 389 MPV 8.1 Sodium 141 Potassium 4.1 Chloride 109 H Carbon Dioxide 30 Anion Gap 2 L BUN 10.8 Creatinine 0.6 Est GFR (CKD-EPI)AfAm 136.83 Est GFR (CKD-EPI)NonAf 118.06 Random Glucose 110 H Calcium 8.8 Phosphorus 2.9 Magnesium 2.1 Total Bilirubin 0.3 AST 12 L ALT 13 Alkaline Phosphatase 76 Total Protein 6.0 L Albumin 3.0 L Current Medications Generic Name Dose Route Start Last Admin Trade Name Freq PRN Reason Stop Dose Admin Acetaminophen 650 mg 03/17/20 19:10 03/18/20 13:29 Tylenol - PO 650 mg Q6H PRN Administration Fever Or Pain Chlordiazepoxide HCl 10 mg 03/21/20 05:00 Librium - PO 03/21/20 05:01 ONCE@0500 ONE Chlordiazepoxide HCl 25 mg 03/17/20 19:34 03/18/20 00:26 Librium - PO 03/18/20 23:59 25 mg Q4H PRN Administration WITHDRAWAL(CONT SUBST) Chlordiazepoxide HCl 10 mg 03/19/20 00:00 Librium - PO 03/20/20 00:00 Q4H PRN WITHDRAWAL(CONT SUBST) Chlordiazepoxide HCl 25 mg 03/18/20 05:00 03/18/20 10:40 Librium - PO 03/18/20 23:01 25 mg [id number] JANEE Administration Chlordiazepoxide HCl 10 mg 03/19/20 05:00 Librium - PO 03/19/20 23:01 [id number] JANEE Chlordiazepoxide HCl 10 mg 03/20/20 05:00 Librium - PO 03/20/20 17:01 Q12H JANEE Enoxaparin Sodium 40 mg 03/18/20 10:00 03/18/20 10:38 Lovenox - SQ 40 mg DAILY JANEE Administration Dextrose/Sodium Chloride 1,000 mls @ 75 mls/hr 03/17/20 19:34 03/18/20 11:53 D5-1/2ns - IV 75 mls/hr ASDIR JANEE Administration Levetiracetam 1,500 mg 03/17/20 22:00 03/18/20 10:38 Keppra - PO 1,500 mg BID JANEE Administration Multivitamins/Minerals/Vitamin C 1 tab 03/18/20 10:00 03/18/20 10:38 Tab-A-Vit - PO 1 tab DAILY JANEE Administration Nicotine 21 mg 03/18/20 11:00 03/18/20 11:31 Nicoderm Patch - TD 21 mg DAILY JANEE Administration Pantoprazole Sodium 40 mg 03/18/20 10:00 03/18/20 10:38 Protonix - PO 40 mg DAILY JANEE Administration Quetiapine Fumarate 300 mg 03/17/20 20:00 03/17/20 20:07 Seroquel - PO 300 mg 2000 JANEE Administration Discharge Medications Medication Instructions Recorded Gabapentin 800 mg PO TID 07/20/19 Quetiapine Fumarate [Seroquel -] 300 mg PO HS 07/20/19 Albuterol Sulfate Inhaler - 2 inh PO Q4H PRN #1 inhaler 11/18/19 [Ventolin HFA Inhaler -] Budesonide/Formeterol Fumarate 1 inh PO BID #1 inhaler 11/18/19 [SYMBICORT 80/4.5mcg -] Folic Acid 1 mg PO DAILY #30 tablet 03/18/20 Multivitamins [Multivit ([facility] 1 tab PO DAILY tab 03/18/20 Formulary)] Nicotine Patch [Nicoderm Patch -] 21 mg TD DAILY patch 03/18/20 Pantoprazole Sodium [Protonix -] 40 mg PO DAILY tablet.ec 03/18/20 Thiamine HCl [B-1] 100 mg PO DAILY #30 tablet 03/18/20 levETIRAcetam [Keppra -] 1,500 mg PO BID tablet 03/18/20 ASSESSMENT AND PLAN: 49 year old male with history of Polysubstance abuse (Alcohol, cocaine), History of withdrawal seizures, COPD, GERD, Bipolar Disorder, major depressive disorder, s/p Craniotomysent from [facility] facility after being found unresponsive lying in bed during morning rounds. There was presumed seizure activity, and patient was intubated in the ED (03/15) for airway protection. Extubated 03/16. 1. Acute Encephalopathy secondary to Alcohol Withdrawal with possible associated Seizure CT Head - no acute findings. On Librium protocol as per [facility], Thiamine, Folic Acid. Discussed with Addiction Medicine - accepted for transfer back to [facility]. Neurology recommended initiation on Keppra- will continue on discharge with Neuro follow up. Psychiatry evaluated and recommended continuing Seroquel Medically Stable for transfer back to [facility] to complete Detox. 2. Acute Respiratory Failure sec to 1 s/p Intubation 03/15, Extubation 03/16 Stable respiratory status. Will need CT Chest follow up as an outpatient for hilar adenopathy as per Pulmonary. 3. Hx COPD - stable, no evidence of acute exacerbation. Continue Symbicort and Albuterol PRN. 4. GERD - Continue PPI Medically and Neurologically Stable for transfer to [facility].
[2020-03-18] MEDS ORDERED: BENZOCAINE/MENTH/CETYLPYRD CL 1 EACH LOZENGE MM PRN (14:33)
--- NOTE | 2020-03-18 14:40 | PN ---
Teaching Attending Note Name of Resident: Tamir Sanders ATTENDING PHYSICIAN STATEMENT I saw and evaluated the patient. I reviewed the resident's note and discussed the case with the resident. I agree with the resident's findings and plan as documented. SUBJECTIVE: Patient seen and examined at bedside, admitted for ARF 2/2 opioid OD, s/p extubation, now refusing treatment, blood draws/IV line, will need psych evaluation for decision making capacity. VSS. OBJECTIVE: GA withdrawn, AAox1, refusing questions HEENT NC/AT, pupils dilated, neck supple, dry MM Chest CTAB, no crackles or wheezing CVS s1, S2+, RRR Abd Soft, NT, ND, BS+ Ext no LE edema, no calf tenderness Psych agitated, flat affect Vital Signs (72 hours) 03/15/20 03/15/20 03/15/20 18:50 19:52 19:54 Temperature 98.5 F 98.6 F Pulse Rate 94 H 76 Pulse Rate [ Left] Respiratory 17 12 12 Rate Blood Pressure 126/96 114/48 L Blood Pressure [Right Arm] O2 Sat by Pulse 100 99 100 Oximetry (%) 03/15/20 03/15/20 03/15/20 20:44 22:13 22:37 Temperature Pulse Rate Pulse Rate [ 86 81 Left] Respiratory 15 Rate Blood Pressure Blood Pressure 102/80 104/79 [Right Arm] O2 Sat by Pulse 100 100 100 Oximetry (%) 03/16/20 03/16/20 03/16/20 00:00 00:10 02:00 Temperature 98.2 F Pulse Rate 74 82 Pulse Rate [ Left] Respiratory 16 15 18 Rate Blood Pressure 111/75 111/76 Blood Pressure [Right Arm] O2 Sat by Pulse 100 100 100 Oximetry (%) 03/16/20 03/16/20 03/16/20 03:51 04:35 06:00 Temperature 98 F Pulse Rate 81 80 Pulse Rate [ Left] Respiratory 19 17 14 Rate Blood Pressure 113/75 112/80 Blood Pressure [Right Arm] O2 Sat by Pulse 100 100 100 Oximetry (%) 03/16/20 03/16/20 03/16/20 07:00 08:00 08:04 Temperature Pulse Rate 80 82 Pulse Rate [ Left] Respiratory 12 16 16 Rate Blood Pressure 119/87 Blood Pressure [Right Arm] O2 Sat by Pulse 100 100 100 Oximetry (%) 03/16/20 03/16/20 03/16/20 09:00 10:00 11:54 Temperature 97.6 F Pulse Rate 85 87 Pulse Rate [ Left] Respiratory 19 16 Rate Blood Pressure 113/69 Blood Pressure [Right Arm] O2 Sat by Pulse 100 92 L 98 Oximetry (%) 03/16/20 03/16/20 03/16/20 14:00 16:00 18:00 Temperature 97.5 F L Pulse Rate 94 H 106 H 104 H Pulse Rate [ Left] Respiratory 20 18 Rate Blood Pressure 114/79 110/58 L Blood Pressure [Right Arm] O2 Sat by Pulse 94 L 95 Oximetry (%) 03/16/20 03/16/20 03/17/20 19:58 21:00 00:30 Temperature Pulse Rate 106 H 104 H Pulse Rate [ Left] Respiratory 19 18 18 Rate Blood Pressure 106/68 114/78 Blood Pressure [Right Arm] O2 Sat by Pulse 100 97 95 Oximetry (%) 03/17/20 03/17/20 03/17/20 04:00 06:00 08:00 Temperature Pulse Rate 96 H 85 100 H Pulse Rate [ Left] Respiratory 18 19 14 Rate Blood Pressure 128/84 124/84 Blood Pressure [Right Arm] O2 Sat by Pulse 94 L 94 L 94 L Oximetry (%) 03/17/20 03/17/20 03/17/20 09:00 21:00 21:36 Temperature 97.8 F Pulse Rate 95 H Pulse Rate [ Left] Respiratory 14 15 Rate Blood Pressure 99/65 Blood Pressure [Right Arm] O2 Sat by Pulse 94 L 93 L 93 L Oximetry (%) 03/18/20 06:16 Temperature 98.5 F Pulse Rate 83 Pulse Rate [ Left] Respiratory 14 Rate Blood Pressure 99/67 Blood Pressure [Right Arm] O2 Sat by Pulse 93 L Oximetry (%) Microbiology 03/15/20 20:20 Blood - Peripheral Venous Blood Culture - Preliminary NO GROWTH OBTAINED AFTER 48 HOURS, INCUBATION TO CONTINUE FOR 3 DAYS. 03/15/20 20:20 Blood - Peripheral Venous Blood Culture - Preliminary NO GROWTH OBTAINED AFTER 48 HOURS, INCUBATION TO CONTINUE FOR 3 DAYS. Laboratory Results - last 24 hr 03/18/20 03/18/20 11:24 11:24 WBC 7.2 RBC 4.07 Hgb 13.8 Hct 39.3 MCV 96.5 H MCH 33.8 H MCHC 35.0 RDW 14.0 Plt Count 389 MPV 8.1 Sodium 141 Potassium 4.1 Chloride 109 H Carbon Dioxide 30 Anion Gap 2 L BUN 10.8 Creatinine 0.6 Est GFR (CKD-EPI)AfAm 136.83 Est GFR (CKD-EPI)NonAf 118.06 Random Glucose 110 H Calcium 8.8 Phosphorus 2.9 Magnesium 2.1 Total Bilirubin 0.3 AST 12 L ALT 13 Alkaline Phosphatase 76 Total Protein 6.0 L Albumin 3.0 L Home Medications Medication Instructions Recorded Gabapentin 800 mg PO TID 07/20/19 Quetiapine Fumarate [Seroquel -] 300 mg PO HS 07/20/19 Albuterol Sulfate Inhaler - 2 inh PO Q4H PRN #1 inhaler 11/18/19 [Ventolin HFA Inhaler -] Budesonide/Formeterol Fumarate 1 inh PO BID #1 inhaler 11/18/19 [SYMBICORT 80/4.5mcg -] Folic Acid 1 mg PO DAILY #30 tablet 03/18/20 Multivitamins [Multivit ([facility] 1 tab PO DAILY tab 03/18/20 Formulary)] Nicotine Patch [Nicoderm Patch -] 21 mg TD DAILY patch 03/18/20 Pantoprazole Sodium [Protonix -] 40 mg PO DAILY tablet.ec 03/18/20 Thiamine HCl [B-1] 100 mg PO DAILY #30 tablet 03/18/20 levETIRAcetam [Keppra -] 1,500 mg PO BID tablet 03/18/20 Current Medications Generic Name Dose Route Start Last Admin Trade Name Freq PRN Reason Stop Dose Admin Acetaminophen 650 mg 03/17/20 19:10 03/18/20 13:29 Tylenol - PO 650 mg Q6H PRN Administration Fever Or Pain Benzocaine/Menthol 1 each 03/18/20 14:33 Cepacol Lozenge - MM PRN PRN SORE THROAT Chlordiazepoxide HCl 10 mg 03/21/20 05:00 Librium - PO 03/21/20 05:01 ONCE@0500 ONE Chlordiazepoxide HCl 25 mg 03/17/20 19:34 03/18/20 00:26 Librium - PO 03/18/20 23:59 25 mg Q4H PRN Administration WITHDRAWAL(CONT SUBST) Chlordiazepoxide HCl 10 mg 03/19/20 00:00 Librium - PO 03/20/20 00:00 Q4H PRN WITHDRAWAL(CONT SUBST) Chlordiazepoxide HCl 25 mg 03/18/20 05:00 03/18/20 10:40 Librium - PO 03/18/20 23:01 25 mg [id number] JANEE Administration Chlordiazepoxide HCl 10 mg 03/19/20 05:00 Librium - PO 03/19/20 23:01 [id number] JANEE Chlordiazepoxide HCl 10 mg 03/20/20 05:00 Librium - PO 03/20/20 17:01 Q12H JANEE Enoxaparin Sodium 40 mg 03/18/20 10:00 03/18/20 10:38 Lovenox - SQ 40 mg DAILY JANEE Administration Dextrose/Sodium Chloride 1,000 mls @ 75 mls/hr 03/17/20 19:34 03/18/20 11:53 D5-1/2ns - IV 75 mls/hr ASDIR JANEE Administration Levetiracetam 1,500 mg 03/17/20 22:00 03/18/20 10:38 Keppra - PO 1,500 mg BID JANEE Administration Multivitamins/Minerals/Vitamin C 1 tab 03/18/20 10:00 03/18/20 10:38 Tab-A-Vit - PO 1 tab DAILY JANEE Administration Nicotine 21 mg 03/18/20 11:00 03/18/20 11:31 Nicoderm Patch - TD 21 mg DAILY JANEE Administration Pantoprazole Sodium 40 mg 03/18/20 10:00 03/18/20 10:38 Protonix - PO 40 mg DAILY JANEE Administration Quetiapine Fumarate 300 mg 03/17/20 20:00 03/17/20 20:07 Seroquel - PO 300 mg 2000 JANEE Administration ASSESSMENT AND PLAN: 49 M Acute hypercapneic respiratory failure 2/2 opioid OD HTN HLD Schizoaffective disorder Opioid dependence Etoh abuse Seizure disorder COPD Asthma Plan: Close watch on airway, duonebs, supplemental O2 PRN to keep O2 88-92% Obtain CXR in AM to r/o aspiration PNA Cont. Seroquel for agitation Restart seizure meds Psych evaluation for decision making (patient saying repeatedly he wants to AMA) cont. Librium protocol Thiamine/FA/MV cont. Detox consult Monitor on telemetry DVT ppx: Lovenox SC
[2020-03-18 14:54] VITALS: BP 115/71; PULSE 95; TEMP 98.2
[2020-03-19] MEDS ORDERED: chlordiazePOXIDE HCL 10 MG CAPSULE PO PRN ×2
[2020-03-19] MEDS ORDERED: chlordiazePOXIDE HCL 10 MG CAPSULE PO SCH ×2 (05:00)
[2020-03-20] MEDS ORDERED: chlordiazePOXIDE HCL 10 MG CAPSULE PO SCH ×2 (05:00)
[2020-03-21] MEDS ORDERED: chlordiazePOXIDE HCL 10 MG CAPSULE PO ONE ×2 (05:00)
== END 2020-03-18 15:53 | disposition other institution (70) | DRG 917 ==
LOC: JER 18:43 → JERBED 19:54 → JICU 23:22 → J5S 03-17 19:24
PROVIDERS: ADMIT Internal Medicine Pulmonary Disease
PROC: 0CHY7BZ Insertion of Airway into Mouth and Throat, Via Natural or Artificial Opening (ICD-10-PCS; principal; 2020-03-15)
PROC: 5A1935Z Respiratory Ventilation, Less than 24 Consecutive Hours (ICD-10-PCS; 2020-03-15)
PROC: 0DH673Z Insertion of Infusion Device into Stomach, Via Natural or Artificial Opening (ICD-10-PCS; 2020-03-15)
DX: T40.5X1A Poisoning by cocaine, accidental (unintentional), initial encounter (principal); G92 Toxic encephalopathy; J96.02 Acute respiratory failure with hypercapnia; F10.239 Alcohol dependence with withdrawal, unspecified; F14.20 Cocaine dependence, uncomplicated; K21.9 Gastro-esophageal reflux disease without esophagitis; F17.210 Nicotine dependence, cigarettes, uncomplicated; F31.9 Bipolar disorder, unspecified; G40.909 Epilepsy, unspecified, not intractable, without status epilepticus; F44.9 Dissociative and conversion disorder, unspecified; R59.1 Generalized enlarged lymph nodes; Z90.81 Acquired absence of spleen; Y92.89 Other specified places as the place of occurrence of the external cause
CPT/HCPCS: 36415; 36600; 70450-TC; 71045-TC-FY; 80053; 80307; 82140; 82550; 82803; 83605; 83735; 84100; 84146; 84443; 84484; 85025; 85027; 85610; 85730; 87040; 90732; 93005; 93010; 94002; 99291; G0009

== ENCOUNTER 2021-02-11 11:22 | Inpatient (IN) | payer BC, OTHER ==
[2021-02-11 12:12] VITALS: BMI 19.5
[2021-02-11] MEDS ORDERED: MAG HYDROX/AL HYDROX/SIMETH 30 ML UNIT-DOSE CUP PO PRN (13:34)
[2021-02-11] MEDS ORDERED: MENTHOL/PHENOL 1 EACH UD MM PRN (13:34)
[2021-02-11] MEDS ORDERED: MAGNESIUM HYDROX 2400MG/30ML ORAL SUSPENSION 30 ML CUP PO PRN (13:34)
[2021-02-11] MEDS ORDERED: MAGNESIUM CITRATE 300 ML BOTTLE PO PRN (13:34)
[2021-02-11] MEDS ORDERED: ONDANSETRON *ODT* 4 MG TABLET SL PRN (13:34)
[2021-02-11] MEDS ORDERED: NICOTINE POLACRILEX 2 MG GUM BUC PRN (13:34)
[2021-02-11] MEDS ORDERED: diazePAM 5 MG TABLET PO PRN (13:34)
[2021-02-11] MEDS ORDERED: NICOTINE 10 MG CARTRIDGE (INHALER) IH PRN (13:34)
[2021-02-11] MEDS ORDERED: BISMUTH SUBSALICYLATE 524 MG/30 ML PO PRN (13:34)
[2021-02-11] MEDS ORDERED: ACETAMINOPHEN 325 MG TABLET (FP) PO PRN ×2 (13:34)
[2021-02-11] MEDS ORDERED: ALBUTEROL SO4 HFA INHALER IH PRN (15:12)
[2021-02-11] MEDS ORDERED: hydrOXYzine PAMOATE 25 MG CAPSULE (FP) PO ONE (15:36)
[2021-02-11] MEDS: hydrOXYzine PAMOATE 25 MG CAPSULE (FP) PO SCH ×3 (15:38→22:55)
[2021-02-11] MEDS: diazePAM 5 MG TABLET PO SCH ×2 (18:09→22:55)
[2021-02-11] MEDS: CEPHALEXIN MONOHYDRATE 500 MG CAPSULE (UD) PO SCH (18:10)
[2021-02-11] MEDS ORDERED: levETIRAcetam 500 MG TABLET (FP) PO SCH (22:00)
[2021-02-11] MEDS: THIAMINE HCL 100 MG TABLET (FP) PO SCH (22:54)
[2021-02-11] MEDS: levETIRAcetam 500 MG TABLET (FP) PO SCH (22:54)
[2021-02-11] MEDS: MELATONIN 5 MG TABLETS PO SCH (22:55)
[2021-02-11] MEDS: BUDESONIDE/FORMETEROL FUMARATE 80/4.5 mcg INHALER IH SCH (22:55)
[2021-02-12] MEDS: CEPHALEXIN MONOHYDRATE 500 MG CAPSULE (UD) PO SCH ×5 (00:08→23:00)
[2021-02-12] MEDS: IBUPROFEN 400 MG TABLET (FP) PO PRN ×2 (03:49→12:35)
[2021-02-12] MEDS ORDERED: IBUPROFEN 400 MG TABLET (FP) PO ONE (04:09)
[2021-02-12] MEDS: diazePAM 5 MG TABLET PO SCH ×4 (04:41→22:39)
[2021-02-12] MEDS: hydrOXYzine PAMOATE 25 MG CAPSULE (FP) PO SCH ×5 (05:19→23:58)
[2021-02-12] MEDS: levETIRAcetam 500 MG TABLET (FP) PO SCH ×2 (12:35→22:39)
[2021-02-12] MEDS: PRENATAL VITAMINS W/ FOLIC ACID TABLET (FP) PO SCH (12:35)
[2021-02-12] MEDS: BUDESONIDE/FORMETEROL FUMARATE 80/4.5 mcg INHALER IH SCH ×2 (12:35→23:57)
[2021-02-12 18:26] LABS: HEMATOCRIT 34.3 % (35.4-49); HEMOGLOBIN 11.8 GM/dL (11.7-16.9); MCH 32.9 pg (25.7-33.7); MCHC 34.4 g/dl (32.0-35.9); MEAN CELL VOLUME 95.7 fl (80-96); MEAN PLT VOLUME 8.5 fl (7.5-11.1); PLATELET COUNT 424 10^3/uL (134-434); RBC 3.58 M/mm3 (4.00-5.60); RDW 14.7 % (11.9-15.9); WHITE BLOOD COUNT 6.2 K/mm3 (4.0-10.0)
[2021-02-12 18:42] LABS: ALBUMIN 2.8 g/dl (3.4-5.0); BLOOD UREA NITROGEN 16.6 mg/dL (7-18); CALCIUM 8.4 mg/dL (8.5-10.1)
[2021-02-12 18:45] LABS: CREATININE 0.7 mg/dL (0.55-1.3)
[2021-02-12 18:47] LABS: BILIRUBIN,TOTAL 0.5 mg/dL (0.2-1); TOT PROT 6.5 g/dl (6.4-8.2)
[2021-02-12] MEDS: THIAMINE HCL 100 MG TABLET (FP) PO SCH (22:39)
[2021-02-12] MEDS: MELATONIN 5 MG TABLETS PO SCH (22:40)
[2021-02-13] MEDS: METHOCARBAMOL 500 MG TABLET PO PRN ×2 (00:59→13:12)
[2021-02-13] MEDS: IBUPROFEN 400 MG TABLET (FP) PO PRN (00:59)
[2021-02-13] MEDS: CEPHALEXIN MONOHYDRATE 500 MG CAPSULE (UD) PO SCH ×4 (06:08→23:00)
[2021-02-13] MEDS: diazePAM 5 MG TABLET PO SCH ×3 (06:09→22:03)
[2021-02-13] MEDS: hydrOXYzine PAMOATE 25 MG CAPSULE (FP) PO SCH ×5 (06:09→22:03)
[2021-02-13] MEDS: PRENATAL VITAMINS W/ FOLIC ACID TABLET (FP) PO SCH (13:11)
[2021-02-13] MEDS: levETIRAcetam 500 MG TABLET (FP) PO SCH ×2 (13:12→21:59)
[2021-02-13] MEDS: BUDESONIDE/FORMETEROL FUMARATE 80/4.5 mcg INHALER IH SCH ×2 (13:16→22:03)
[2021-02-13] MEDS ORDERED: GABAPENTIN 300 MG CAPSULE PO ONE (20:02)
[2021-02-13] MEDS ORDERED: QUEtiapine FUMARATE 100 MG TABLET (FP) PO ONE (20:02)
[2021-02-13] MEDS: THIAMINE HCL 100 MG TABLET (FP) PO SCH (21:58)
[2021-02-13] MEDS: MELATONIN 5 MG TABLETS PO SCH (22:03)
[2021-02-14] MEDS: hydrOXYzine PAMOATE 25 MG CAPSULE (FP) PO SCH ×5 (06:36→22:39)
[2021-02-14] MEDS: diazePAM 5 MG TABLET PO SCH ×2 (06:36→18:07)
[2021-02-14] MEDS: CEPHALEXIN MONOHYDRATE 500 MG CAPSULE (UD) PO SCH ×4 (06:36→23:07)
[2021-02-14] MEDS: GABAPENTIN 300 MG CAPSULE PO SCH ×3 (07:13→22:38)
[2021-02-14] MEDS: PRENATAL VITAMINS W/ FOLIC ACID TABLET (FP) PO SCH (10:01)
[2021-02-14] MEDS: levETIRAcetam 500 MG TABLET (FP) PO SCH ×2 (10:01→22:38)
[2021-02-14] MEDS: BUDESONIDE/FORMETEROL FUMARATE 80/4.5 mcg INHALER IH SCH ×2 (10:03→22:38)
[2021-02-14] MEDS ORDERED: QUEtiapine FUMARATE 100 MG TABLET (FP) PO SCH (22:00)
[2021-02-14] MEDS: MELATONIN 5 MG TABLETS PO SCH (22:38)
[2021-02-14] MEDS: THIAMINE HCL 100 MG TABLET (FP) PO SCH (22:38)
[2021-02-15] MEDS: hydrOXYzine PAMOATE 25 MG CAPSULE (FP) PO SCH ×2 (05:29→06:14)
[2021-02-15] MEDS: CEPHALEXIN MONOHYDRATE 500 MG CAPSULE (UD) PO SCH (05:29)
[2021-02-15] MEDS ORDERED: diazePAM 5 MG TABLET PO ONE (06:00)
[2021-02-15] MEDS: GABAPENTIN 300 MG CAPSULE PO SCH (06:18)
[2021-02-15 06:22] VITALS: BP 104/79; PULSE 80; TEMP 98
== END 2021-02-15 09:55 | disposition home or self-care (01) | DRG 897 ==
LOC: YASAS 11:22 → Y6N 15:57
PROVIDERS: ADMIT Allergy & Immunology; ATTEND Allergy & Immunology
PROC: HZ2ZZZZ Detoxification Services for Substance Abuse Treatment (ICD-10-PCS; principal; 2021-02-11)
DX: F10.230 Alcohol dependence with withdrawal, uncomplicated (principal); F14.20 Cocaine dependence, uncomplicated; F19.280 Other psychoactive substance dependence with psychoactive substance-induced anxiety disorder; F19.282 Other psychoactive substance dependence with psychoactive substance-induced sleep disorder; F12.20 Cannabis dependence, uncomplicated; F17.210 Nicotine dependence, cigarettes, uncomplicated; F31.9 Bipolar disorder, unspecified; F43.10 Post-traumatic stress disorder, unspecified; G40.909 Epilepsy, unspecified, not intractable, without status epilepticus; G62.9 Polyneuropathy, unspecified; J43.9 Emphysema, unspecified; K21.9 Gastro-esophageal reflux disease without esophagitis; M54.5 Low back pain; G89.29 Other chronic pain; Z59.0 Homelessness; Z88.0 Allergy status to penicillin; Z88.8 Allergy status to other drugs, medicaments and biological substances; Z91.14 Patient's other noncompliance with medication regimen
CPT/HCPCS: 36415; 80053; 85027; 86780; C9803; U0003; U0005

== ENCOUNTER 2021-08-21 06:28 | Inpatient (IN) | payer OTHER ==
[2021-08-21] MEDS ORDERED: BISMUTH SUBSALICYLATE 262 MG/15 ML BTL PO PRN (08:48)
[2021-08-21] MEDS ORDERED: NICOTINE 10 MG CARTRIDGE (INHALER) IH PRN (08:48)
[2021-08-21] MEDS ORDERED: MAGNESIUM CITRATE 300 ML BOTTLE PO PRN (08:48)
[2021-08-21] MEDS ORDERED: ACETAMINOPHEN 325 MG TABLET (FP) PO PRN ×2 (08:48)
[2021-08-21] MEDS ORDERED: MAG HYDROX/AL HYDROX/SIMETH 30 ML UNIT-DOSE CUP PO PRN (08:48)
[2021-08-21] MEDS ORDERED: MAGNESIUM HYDROX 2400MG/30ML ORAL SUSPENSION 30 ML CUP PO PRN (08:48)
[2021-08-21] MEDS ORDERED: MENTHOL/PHENOL 1 EACH UD MM PRN (08:48)
[2021-08-21] MEDS ORDERED: ONDANSETRON *ODT* 4 MG TABLET SL PRN (08:48)
[2021-08-21] MEDS ORDERED: IBUPROFEN 400 MG TABLET (FP) PO PRN (08:48)
[2021-08-21] MEDS ORDERED: LOPERAMIDE HCL 2 MG CAPSULE PO PRN (08:48)
[2021-08-21] MEDS ORDERED: chlordiazePOXIDE HCL 25 MG CAPSULE PO PRN (08:48)
[2021-08-21 11:19] LABS: HEMATOCRIT 34.6 % (35.4-49); HEMOGLOBIN 11.8 GM/dL (11.7-16.9); MCHC 34.1 g/dl (32.0-35.9); MEAN CELL VOLUME 93.8 fl (80-96); MEAN PLT VOLUME 8.5 fl (7.5-11.1); PLATELET COUNT 310 10^3/uL (134-434); RBC 3.69 M/mm3 (4.00-5.60); RDW 13.7 % (11.9-15.9); WHITE BLOOD COUNT 3.4 K/mm3 (4.0-10.0)
[2021-08-21] MEDS: chlordiazePOXIDE HCL 25 MG CAPSULE PO SCH ×3 (11:34→22:20)
[2021-08-21] MEDS: hydrOXYzine PAMOATE 25 MG CAPSULE (FP) PO SCH ×4 (11:35→22:21)
[2021-08-21] MEDS: PRENATAL VITAMINS W/ FOLIC ACID TABLET (FP) PO SCH (11:36)
[2021-08-21] MEDS: NICOTINE 14 MG/24 HOURS TOPICAL PATCH TD SCH (11:36)
[2021-08-21 11:58] LABS: ALBUMIN 3.6 g/dl (3.4-5.0); BLOOD UREA NITROGEN 17.5 mg/dL (7-18); CALCIUM 8.9 mg/dL (8.5-10.1)
[2021-08-21 12:01] LABS: CREATININE 0.9 mg/dL (0.55-1.3)
[2021-08-21 12:03] LABS: BILIRUBIN,TOTAL 0.3 mg/dL (0.2-1); TOT PROT 7.1 g/dl (6.4-8.2)
[2021-08-21] MEDS: METHOCARBAMOL 500 MG TABLET PO PRN (15:51)
[2021-08-21] MEDS: THIAMINE HCL 100 MG TABLET (FP) PO SCH (22:21)
[2021-08-21] MEDS: MELATONIN 5 MG TABLETS PO SCH (22:21)
[2021-08-22] MEDS: chlordiazePOXIDE HCL 25 MG CAPSULE PO SCH ×4 (05:04→22:26)
[2021-08-22] MEDS: hydrOXYzine PAMOATE 25 MG CAPSULE (FP) PO SCH ×5 (05:05→22:27)
[2021-08-22] MEDS: PRENATAL VITAMINS W/ FOLIC ACID TABLET (FP) PO SCH (10:49)
[2021-08-22] MEDS: NICOTINE 14 MG/24 HOURS TOPICAL PATCH TD SCH (10:49)
[2021-08-22] MEDS: METHOCARBAMOL 500 MG TABLET PO PRN (18:34)
[2021-08-22] MEDS ORDERED: QUEtiapine FUMARATE 100 MG TABLET (FP) PO SCH (22:00)
[2021-08-22] MEDS: THIAMINE HCL 100 MG TABLET (FP) PO SCH (22:27)
[2021-08-22] MEDS: MELATONIN 5 MG TABLETS PO SCH (22:27)
[2021-08-23] MEDS: hydrOXYzine PAMOATE 25 MG CAPSULE (FP) PO SCH ×2 (05:28→10:37)
[2021-08-23] MEDS: chlordiazePOXIDE HCL 25 MG CAPSULE PO SCH ×2 (05:28→10:37)
[2021-08-23 06:32] VITALS: PULSE 94
[2021-08-23 09:11] VITALS: BP 111/72; TEMP 97.9
[2021-08-23] MEDS ORDERED: PARoxetine HCL 10 MG TABLET PO SCH (10:00)
[2021-08-23] MEDS: PRENATAL VITAMINS W/ FOLIC ACID TABLET (FP) PO SCH (10:37)
[2021-08-23] MEDS: METHOCARBAMOL 500 MG TABLET PO PRN (10:38)
[2021-08-23] MEDS: NICOTINE 14 MG/24 HOURS TOPICAL PATCH TD SCH (10:40)
[2021-08-24] MEDS ORDERED: chlordiazePOXIDE HCL 10 MG CAPSULE PO PRN
[2021-08-24] MEDS ORDERED: chlordiazePOXIDE HCL 10 MG CAPSULE PO SCH (05:00)
[2021-08-25] MEDS ORDERED: chlordiazePOXIDE HCL 10 MG CAPSULE PO SCH (05:00)
[2021-08-26] MEDS ORDERED: chlordiazePOXIDE HCL 10 MG CAPSULE PO ONE (05:00)
== END 2021-08-23 12:09 | disposition left against medical advice (07) | DRG 894 ==
LOC: YASAS 06:28 → Y3N 09:07
PROVIDERS: ADMIT Allergy & Immunology; ATTEND Allergy & Immunology
PROC: HZ2ZZZZ Detoxification Services for Substance Abuse Treatment (ICD-10-PCS; principal; 2021-08-21)
DX: F10.230 Alcohol dependence with withdrawal, uncomplicated (principal); F13.20 Sedative, hypnotic or anxiolytic dependence, uncomplicated; F14.20 Cocaine dependence, uncomplicated; F11.10 Opioid abuse, uncomplicated; F17.210 Nicotine dependence, cigarettes, uncomplicated; F19.24 Other psychoactive substance dependence with psychoactive substance-induced mood disorder; F31.9 Bipolar disorder, unspecified; F41.9 Anxiety disorder, unspecified; F43.10 Post-traumatic stress disorder, unspecified; Z21 Asymptomatic human immunodeficiency virus [HIV] infection status; G40.909 Epilepsy, unspecified, not intractable, without status epilepticus; G47.00 Insomnia, unspecified; J44.9 Chronic obstructive pulmonary disease, unspecified; K21.9 Gastro-esophageal reflux disease without esophagitis; Z87.820 Personal history of traumatic brain injury; Z88.0 Allergy status to penicillin; Z88.8 Allergy status to other drugs, medicaments and biological substances; Z91.19 Patient's noncompliance with other medical treatment and regimen
CPT/HCPCS: 36415; 80053; 85027; 86780; 87811; C9803; U0003; U0005

== ENCOUNTER 2022-01-09 18:05 | Inpatient (IN) | payer OTHER ==
[2022-01-09 21:17] VITALS: BMI 19.8
[2022-01-10] MEDS ORDERED: DICYCLOMINE HCL 10 MG CAPSULE PO PRN (00:33)
[2022-01-10] MEDS ORDERED: BISMUTH SUBSALICYLATE 524 MG/30 ML PO PRN (00:33)
[2022-01-10] MEDS ORDERED: ACETAMINOPHEN 325 MG TABLET (FP) PO PRN ×2 (00:33)
[2022-01-10] MEDS ORDERED: BENZOCAINE/MENTHOL (CHLORASEPTIC ) LOZENGE MM PRN (00:33)
[2022-01-10] MEDS ORDERED: METHOCARBAMOL 500 MG TABLET PO PRN (00:33)
[2022-01-10] MEDS ORDERED: IBUPROFEN 600 MG TABLET (FP) PO PRN (00:33)
[2022-01-10] MEDS ORDERED: IBUPROFEN 400 MG TABLET (FP) PO PRN (00:33)
[2022-01-10] MEDS ORDERED: MAG HYDROX/AL HYDROX/SIMETH 30 ML UNIT-DOSE CUP PO PRN (00:33)
[2022-01-10] MEDS ORDERED: MAGNESIUM HYDROX 2400MG/30ML ORAL SUSPENSION 30 ML CUP PO PRN (00:33)
[2022-01-10] MEDS ORDERED: MAGNESIUM CITRATE 300 ML BOTTLE PO PRN (00:33)
[2022-01-10] MEDS ORDERED: LOPERAMIDE HCL 2 MG CAPSULE PO PRN (00:33)
[2022-01-10] MEDS ORDERED: chlordiazePOXIDE HCL 25 MG CAPSULE PO PRN (00:33)
[2022-01-10] MEDS ORDERED: ONDANSETRON *ODT* 4 MG TABLET SL PRN (00:33)
[2022-01-10] MEDS: chlordiazePOXIDE HCL 25 MG CAPSULE PO SCH ×3 (05:40→18:21)
[2022-01-10] MEDS ORDERED: PRENATAL VITAMINS W/ FOLIC ACID TABLET (FP) PO SCH (10:00)
[2022-01-10] MEDS ORDERED: NICOTINE 21 MG/24 HOURS TOPICAL PATCH TD SCH (10:00)
[2022-01-10 14:33] LABS: HEMATOCRIT 35.3 % (35.4-49); HEMOGLOBIN 12.2 GM/dL (11.7-16.9); MCH 31.7 pg (25.7-33.7); MCHC 34.6 g/dl (32.0-35.9); MEAN CELL VOLUME 91.8 fl (80-96); MEAN PLT VOLUME 8.3 fl (7.5-11.1); PLATELET COUNT 345 10^3/uL (134-434); RBC 3.84 M/mm3 (4.00-5.60); RDW 14.2 % (11.9-15.9); WHITE BLOOD COUNT 2.4 K/mm3 (4.0-10.0)
[2022-01-10 17:41] VITALS: BP 115/72; PULSE 65; RESP 18; TEMP 97.3
[2022-01-10] MEDS ORDERED: QUEtiapine FUMARATE 100 MG TABLET (FP) PO SCH (22:00)
[2022-01-10] MEDS ORDERED: THIAMINE HCL 100 MG TABLET (FP) PO SCH (22:00)
[2022-01-10] MEDS ORDERED: MELATONIN 5 MG TABLETS PO SCH (22:00)
[2022-01-11] MEDS ORDERED: chlordiazePOXIDE HCL 25 MG CAPSULE PO SCH (05:00)
[2022-01-11 11:16] LABS: CALCIUM 8.7 mg/dL (8.5-10.1)
[2022-01-11 11:17] LABS: BLOOD UREA NITROGEN 11.9 mg/dL (7-18)
[2022-01-11 11:20] LABS: CREATININE 0.6 mg/dL (0.55-1.3)
[2022-01-11 11:21] LABS: BILIRUBIN,TOTAL 0.5 mg/dL (0.2-1); TOT PROT 6.6 g/dl (6.4-8.2)
[2022-01-12] MEDS ORDERED: chlordiazePOXIDE HCL 10 MG CAPSULE PO PRN
[2022-01-12] MEDS ORDERED: chlordiazePOXIDE HCL 10 MG CAPSULE PO SCH (05:00)
[2022-01-13] MEDS ORDERED: chlordiazePOXIDE HCL 10 MG CAPSULE PO SCH (05:00)
[2022-01-14] MEDS ORDERED: chlordiazePOXIDE HCL 10 MG CAPSULE PO ONE (05:00)
== END 2022-01-10 19:23 | disposition left against medical advice (07) | DRG 894 ==
LOC: YASAS 18:05 → Y6N 01-10 00:48
PROVIDERS: ADMIT Allergy & Immunology; ATTEND Surgery
PROC: HZ2ZZZZ Detoxification Services for Substance Abuse Treatment (ICD-10-PCS; principal; 2022-01-10)
DX: F10.230 Alcohol dependence with withdrawal, uncomplicated (principal); F14.20 Cocaine dependence, uncomplicated; F31.89 Other bipolar disorder; F19.282 Other psychoactive substance dependence with psychoactive substance-induced sleep disorder; F17.213 Nicotine dependence, cigarettes, with withdrawal; F19.24 Other psychoactive substance dependence with psychoactive substance-induced mood disorder; F43.10 Post-traumatic stress disorder, unspecified; Z21 Asymptomatic human immunodeficiency virus [HIV] infection status; J43.9 Emphysema, unspecified; G40.909 Epilepsy, unspecified, not intractable, without status epilepticus; K21.9 Gastro-esophageal reflux disease without esophagitis; G62.9 Polyneuropathy, unspecified; Z88.0 Allergy status to penicillin; Z88.8 Allergy status to other drugs, medicaments and biological substances; Z87.820 Personal history of traumatic brain injury; Z86.69 Personal history of other diseases of the nervous system and sense organs; Z91.51 Personal history of suicidal behavior; Z56.0 Unemployment, unspecified
CPT/HCPCS: 36415; 80053; 85027; 86593; 86780; 87811; C9803-CS; U0003; U0005

== ENCOUNTER 2022-03-27 21:09 | Inpatient (IN) | payer OTHER ==
[2022-03-27 21:43] VITALS: BMI 19.5
[2022-03-27] MEDS ORDERED: P-EPHED 60MG/TRIPROLIDI 2.5MG TABLET PO PRN (21:56)
[2022-03-27] MEDS ORDERED: BENZOCAINE/MENTHOL (CHLORASEPTIC ) LOZENGE MM PRN (21:56)
[2022-03-27] MEDS ORDERED: ONDANSETRON *ODT* 4 MG TABLET SL PRN (21:56)
[2022-03-27] MEDS ORDERED: guaiFENesin 200 MG/10 ML 10 ML UNIT-DOSE CUPS PO PRN (21:56)
[2022-03-27] MEDS ORDERED: BISMUTH SUBSALICYLATE 524 MG/30 ML PO PRN (21:56)
[2022-03-27] MEDS ORDERED: IBUPROFEN 400 MG TABLET (FP) PO PRN (21:56)
[2022-03-27] MEDS ORDERED: IBUPROFEN 600 MG TABLET (FP) PO PRN (21:56)
[2022-03-27] MEDS ORDERED: LOPERAMIDE HCL 2 MG CAPSULE PO PRN (21:56)
[2022-03-27] MEDS ORDERED: NICOTINE POLACRILEX 2 MG GUM BUC PRN (21:56)
[2022-03-27] MEDS ORDERED: MAG HYDROX/AL HYDROX/SIMETH 30 ML UNIT-DOSE CUP PO PRN (21:56)
[2022-03-27] MEDS ORDERED: chlordiazePOXIDE HCL 25 MG CAPSULE PO PRN (21:56)
[2022-03-27] MEDS ORDERED: MAGNESIUM CITRATE 300 ML BOTTLE PO PRN (21:56)
[2022-03-27] MEDS ORDERED: MAGNESIUM HYDROX 2400MG/30ML ORAL SUSPENSION 30 ML CUP PO PRN (21:56)
[2022-03-27] MEDS ORDERED: ACETAMINOPHEN 325 MG TABLET (FP) PO PRN (21:56)
[2022-03-27] MEDS ORDERED: DICYCLOMINE HCL 10 MG CAPSULE PO PRN (21:56)
[2022-03-27] MEDS ORDERED: NALOXONE HCL (KLOXXADO) 8 MG SPRAY NS PRN (21:56)
[2022-03-27] MEDS: THIAMINE HCL 100 MG TABLET (FP) PO SCH (23:11)
[2022-03-27] MEDS: METHOCARBAMOL 500 MG TABLET PO PRN (23:11)
[2022-03-27] MEDS: MELATONIN 5 MG TABLETS PO SCH (23:11)
[2022-03-27] MEDS: chlordiazePOXIDE HCL 25 MG CAPSULE PO SCH (23:11)
[2022-03-27] MEDS: ACETAMINOPHEN 325 MG TABLET (FP) PO PRN (23:26)
[2022-03-28] MEDS: chlordiazePOXIDE HCL 25 MG CAPSULE PO SCH ×4 (05:27→22:10)
[2022-03-28] MEDS: ACETAMINOPHEN 325 MG TABLET (FP) PO PRN ×3 (05:27→22:11)
[2022-03-28] MEDS: METHOCARBAMOL 500 MG TABLET PO PRN ×2 (05:28→17:47)
[2022-03-28] MEDS: PRENATAL VITAMINS W/ FOLIC ACID TABLET (FP) PO SCH (10:52)
[2022-03-28] MEDS: NICOTINE 21 MG/24 HOURS TOPICAL PATCH TD SCH (10:52)
[2022-03-28 14:17] LABS: HEMATOCRIT 34.2 % (35.4-49); HEMOGLOBIN 11.5 GM/dL (11.7-16.9); MCH 31.8 pg (25.7-33.7); MCHC 33.7 g/dl (32.0-35.9); MEAN CELL VOLUME 94.3 fl (80-96); MEAN PLT VOLUME 8.3 fl (7.5-11.1); PLATELET COUNT 431 10^3/uL (134-434); RBC 3.62 M/mm3 (4.00-5.60); RDW 14.4 % (11.9-15.9); WHITE BLOOD COUNT 5.4 K/mm3 (4.0-10.0)
[2022-03-28 15:33] LABS: BLOOD UREA NITROGEN 17.6 mg/dL (7-18); CALCIUM 8.5 mg/dL (8.5-10.1)
[2022-03-28 15:34] LABS: ALBUMIN 2.7 g/dl (3.4-5.0)
[2022-03-28 15:36] LABS: CREATININE 0.7 mg/dL (0.55-1.3)
[2022-03-28 15:38] LABS: BILIRUBIN,TOTAL 0.3 mg/dL (0.2-1); TOT PROT 6.3 g/dl (6.4-8.2)
[2022-03-28] MEDS: THIAMINE HCL 100 MG TABLET (FP) PO SCH (22:09)
[2022-03-28] MEDS: MELATONIN 5 MG TABLETS PO SCH (22:09)
[2022-03-28] MEDS: QUEtiapine FUMARATE 100 MG TABLET (FP) PO SCH (22:10)
[2022-03-29] MEDS: chlordiazePOXIDE HCL 25 MG CAPSULE PO SCH ×4 (06:31→22:02)
[2022-03-29] MEDS: PRENATAL VITAMINS W/ FOLIC ACID TABLET (FP) PO SCH (10:31)
[2022-03-29] MEDS: NICOTINE 21 MG/24 HOURS TOPICAL PATCH TD SCH (10:32)
[2022-03-29] MEDS: DOXYCYCLINE HYCLATE 100 MG TABLET PO SCH (17:24)
[2022-03-29] MEDS: METHOCARBAMOL 500 MG TABLET PO PRN (17:24)
[2022-03-29] MEDS: MELATONIN 5 MG TABLETS PO SCH (22:01)
[2022-03-29] MEDS: QUEtiapine FUMARATE 100 MG TABLET (FP) PO SCH (22:01)
[2022-03-29] MEDS: THIAMINE HCL 100 MG TABLET (FP) PO SCH (22:01)
[2022-03-30] MEDS ORDERED: chlordiazePOXIDE HCL 10 MG CAPSULE PO PRN
[2022-03-30] MEDS: chlordiazePOXIDE HCL 10 MG CAPSULE PO SCH ×2 (06:47→11:32)
[2022-03-30 09:16] VITALS: RESP 18
[2022-03-30] MEDS: PRENATAL VITAMINS W/ FOLIC ACID TABLET (FP) PO SCH (11:32)
[2022-03-30] MEDS: NICOTINE 21 MG/24 HOURS TOPICAL PATCH TD SCH (11:32)
[2022-03-30] MEDS: DOXYCYCLINE HYCLATE 100 MG TABLET PO SCH (11:32)
[2022-03-30 17:42] VITALS: BP 115/79; PULSE 86; TEMP 97.5
[2022-03-31] MEDS ORDERED: chlordiazePOXIDE HCL 10 MG CAPSULE PO SCH (05:00)
[2022-04-01] MEDS ORDERED: chlordiazePOXIDE HCL 10 MG CAPSULE PO ONE (05:00)
== END 2022-03-30 18:01 | disposition left against medical advice (07) | DRG 894 ==
LOC: YASAS 21:09 → Y3N 22:10
PROVIDERS: ADMIT Allergy & Immunology; ATTEND Surgery
PROC: HZ2ZZZZ Detoxification Services for Substance Abuse Treatment (ICD-10-PCS; principal; 2022-03-27)
DX: F10.230 Alcohol dependence with withdrawal, uncomplicated (principal); F14.20 Cocaine dependence, uncomplicated; F19.282 Other psychoactive substance dependence with psychoactive substance-induced sleep disorder; F19.280 Other psychoactive substance dependence with psychoactive substance-induced anxiety disorder; F12.20 Cannabis dependence, uncomplicated; F17.210 Nicotine dependence, cigarettes, uncomplicated; F19.24 Other psychoactive substance dependence with psychoactive substance-induced mood disorder; F31.9 Bipolar disorder, unspecified; Z21 Asymptomatic human immunodeficiency virus [HIV] infection status; A53.9 Syphilis, unspecified; G62.9 Polyneuropathy, unspecified; J43.9 Emphysema, unspecified; K21.9 Gastro-esophageal reflux disease without esophagitis; R76.8 Other specified abnormal immunological findings in serum; Z87.820 Personal history of traumatic brain injury; Z88.0 Allergy status to penicillin; Z88.8 Allergy status to other drugs, medicaments and biological substances
CPT/HCPCS: 36415; 80053; 85027; 86593; 86780; 93005; 93010; C9803-CS; U0003; U0005